=== PATIENT | male | born 2000 | race Caucasian/White ===

== ENCOUNTER 2019-11-24 03:55 | Outpatient (CLI) | payer MEDICAID, SELFPAY ==
[2019-11-24 13:10] LABS: Abs Immature Grans 0.01 k/cumm (0.0-0.09); Absolute Basophil Count 0.03 k/cumm (0.0-0.2); Absolute Eosinophil Count 0.14 k/cumm (0.0-0.7); Absolute Lymphocyte Count 1.24 k/cumm (1.2-3.4); Absolute Monocyte Count 0.35 k/cumm (0.11-0.7); Basophils % 0.5; Eosinophils % 2.5; HGB 15.8 g/dL (13.5-17.5); Immature Grans % 0.2 %; Lymphocytes % 21.9; Mean Corp. HGB Concentration 34.3 g/dL (32.0-36.0); Mean Corpuscular Volume 87.5 fL (80-95); Mean Platelet Volume 10.4 fL (8.0-11.0); Monocytes % 6.2; Neutrophils % 68.7; Platelet Count 229 x1000/uL (130-400); RBC 5.26 m/cumm (4.50-6.00); RBC Distribution Width 13.2 % (11.8-14.1); White Blood Cell Count 5.67 k/cumm (4.4-10.8)
[2019-11-24 13:32] LABS: GTT Comment See Comments
[2019-11-24 13:34] LABS: Prothrombin Time 10.4 sec (9.3-11.0)
[2019-11-24 14:06] LABS: ALT 70 U/L (16-63); AST 25 U/L (15-37); Albumin 3.9 g/dL (3.4-5.0); Alkaline Phosphatase 115 U/L (46-116); Anion Gap 10.3 mmol/L (3-11); BUN 21 mg/dL (7-18); Bilirubin, Total 0.8 mg/dL (0.2-1.0); CO2 23.7 mmol/L (21.0-32.0); CREATININE 0.91 mg/dL (0.70-1.30); Calcium 8.9 mg/dL (8.5-10.1); Chloride 106 mmol/L (98-107); Creatine Kinase 128 U/L (39-308); Glucose 128 mg/dL (74-106); Potassium 3.9 mmol/L (3.5-5.1); Sodium 140 mmol/L (136-145)
[2019-11-24 14:13] LABS: GGT 35 U/L (15-85)
[2019-11-26 11:50] LABS: Vitamin E, Serum 6.1 mg/L (5.5 - 17.0)
[2019-11-26 12:42] LABS: Tissue Transglutaminase Ab IgA <1.2 U/mL; Tissue Transglutaminase Ab IgG 2.8 U/mL
[2019-11-26 12:48] LABS: Zinc, Serum 0.77 mcg/mL (0.66-1.10)
[2019-11-26 13:52] LABS: IgE 24 IU/mL (<158)
[2019-11-29 09:08] LABS: Testosterone, Total 911 ng/dL (240-950)
== END 2019-11-24 04:15 ==
PROVIDERS: PCP Pediatrics; Visit Provider Pediatrics Pediatric Pulmonology
DX: E84.9 Cystic fibrosis, unspecified (principal)
CPT/HCPCS: 36415; 80053; 82306; 82550; 84403; 82785; 82951; 82977; 83516; 84446; 84590; 84630; 85025; 85610

== ENCOUNTER 2020-05-03 02:48 | Outpatient (CLI) | payer MEDICAID, SELFPAY ==
[2020-05-03 13:00] LABS: ALT 116 U/L (16-63); AST 38 U/L (15-37); Albumin 4.2 g/dL (3.4-5.0); Alkaline Phosphatase 141 U/L (46-116); Bilirubin, Direct 0.18 mg/dL (0.00-0.20); Total Protein 7.3 g/dL (6.4-8.2)
[2020-05-05 08:07] LABS: Zonisamide 11 mcg/mL (10-40)
== END 2020-05-03 03:08 ==
PROVIDERS: PCP Pediatrics; Visit Provider Psychiatry & Neurology Behavioral Neurology & Neuropsychiatry
DX: G40.109 Localization-related (focal) (partial) symptomatic epilepsy and epileptic syndromes with simple partial seizures, not intractable, without status epilepticus (principal); Z51.81 Encounter for therapeutic drug level monitoring; Z79.899 Other long term (current) drug therapy
CPT/HCPCS: 36415; 80076; 80203

== ENCOUNTER 2020-12-29 02:00 | Outpatient (CLI) | payer MEDICAID, SELFPAY ==
[2020-12-29 10:53] LABS: Abs Immature Grans 0.02 10^3/uL (0.0-0.06); Absolute Basophil Count 0.07 10^3/uL (0.0-0.2); Absolute Eosinophil Count 0.23 10^3/uL (0.0-0.7); Absolute Lymphocyte Count 1.35 10^3/uL (1.2-3.4); Absolute Monocyte Count 0.39 10^3/uL (0.1-0.8); Absolute Neutrophil Count 4.66 10^3/uL (1.2-6.7); Eosinophils % 3.4; HCT 43.2 % (40.0-50.0); HGB 14.4 g/dL (13.5-17.5); Immature Grans % 0.3; Lymphocytes % 20.1; MCH 29.6 pg (27.0-33.0); MCHC 33.3 % (32.0-36.0); MCV 88.7 fL (80-95); MPV 9.6 fL (8.0-11.0); Monocytes % 5.8; Neutrophils % 69.4; Nucleated RBC 0 %; Platelet Count 220 10^3/uL (130-400); RBC 4.87 10^6/uL (4.36-5.78); RDW 12.7 % (11.8-14.1); RDW-SD 41.7 fL; WBC 6.72 10^3/uL (4.4-10.8)
[2020-12-29 11:05] LABS: ALT 144 U/L (16-63); AST 89 U/L (15-37); Albumin 3.5 g/dL (3.4-5.0); Alkaline Phosphatase 450 U/L (46-116); Anion Gap 9.3 mmol/L (3-11); BUN 17 mg/dL (7-18); Bilirubin, Direct 0.1 mg/dL (0.0-0.2); Bilirubin, Total 0.4 mg/dL (0.2-1.0); CO2 23.7 mmol/L (21.0-32.0); CREATININE 0.9 mg/dL (0.70-1.30); Calcium 8.5 mg/dL (8.5-10.1); Chloride 108 mmol/L (98-107); Glucose 96 mg/dL (74-106); Glucose, 2 Hour PP 96 mg/dL; Potassium 3.7 mmol/L (3.5-5.1); Sodium 141 mmol/L (136-145); Total Protein 7.2 g/dL (6.4-8.2)
[2020-12-29 11:09] LABS: Prothrombin Time 10.1 sec (9.3-11.0)
[2020-12-29 11:20] LABS: GGT 253 U/L (15-85)
[2021-01-01 02:42] LABS: Vitamin D 25 Total 46.5 ng/mL (30-100)
[2021-01-01 09:32] LABS: IgE 21 IU/mL (<158)
[2021-01-01 15:09] LABS: Free Retinol (Vitamin A) 34.1 mcg/dL (32.5-78.0)
[2021-01-02 01:21] LABS: Vitamin E, Serum 9.7 mg/L (5.5 - 17.0)
[2021-01-02 06:45] LABS: Zonisamide 12 mcg/mL (10-40)
== END 2020-12-29 02:01 | disposition home or self-care (01) ==
LOC: LBO 02:00
PROVIDERS: PCP Pediatrics; Visit Provider Psychiatry & Neurology Behavioral Neurology & Neuropsychiatry
DX: E84.8 Cystic fibrosis with other manifestations (principal); G40.909 Epilepsy, unspecified, not intractable, without status epilepticus; G40.814 Lennox-Gastaut syndrome, intractable, without status epilepticus
CPT/HCPCS: 36415; 80053; 80076; 80203; 82306; 82785; 82947; 82977; 84446; 84590; 84630; 85025; 85610

== ENCOUNTER 2022-01-03 05:04 | Outpatient (CLI) | payer MEDICAID, SELFPAY ==
[2022-01-03 16:26] LABS: Abs Immature Grans 0.03 10^3/uL (0.0-0.06); Absolute Basophil Count 0.06 10^3/uL (0.0-0.2); Absolute Eosinophil Count 0.18 10^3/uL (0.0-0.7); Absolute Lymphocyte Count 1.19 10^3/uL (1.2-3.4); Absolute Monocyte Count 0.53 10^3/uL (0.1-0.8); Absolute Neutrophil Count 6.35 10^3/uL (1.2-6.7); Basophils % 0.7; Eosinophils % 2.2; HCT 41.9 % (40.0-50.0); HGB 14.1 g/dL (13.5-17.5); Immature Grans % 0.4; Lymphocytes % 14.3; MCH 29.7 pg (27.0-33.0); MCHC 33.7 % (32.0-36.0); MCV 88 fL (80-95); MPV 10.7 fL (8.0-11.0); Monocytes % 6.4; Platelet Count 161 10^3/uL (130-400); RBC 4.75 10^6/uL (4.36-5.78); RDW 13.8 % (11.8-14.1); WBC 8.34 10^3/uL (4.4-10.8)
[2022-01-03 16:35] LABS: INR 1.1 (0.9-1.1); Prothrombin Time 10.9 sec (9.3-11.0)
[2022-01-03 17:13] LABS: ALT 110 U/L (16-63); AST 51 U/L (15-37); Albumin 3.6 g/dL (3.4-5.0); Alkaline Phosphatase 550 U/L (46-116); Anion Gap 11.7 mmol/L (3-11); BUN 12 mg/dL (7-18); Bilirubin, Total 0.7 mg/dL (0.2-1.0); CO2 23.3 mmol/L (21.0-32.0); Calcium 8.8 mg/dL (8.5-10.1); Chloride 104 mmol/L (98-107); Estimated GFR 109.13 (mL/min/1.73m2); GGT 357 U/L (15-85); Glucose 144 mg/dL (74-106); Glucose, 2 Hour PP 144 mg/dL; Potassium 3.7 mmol/L (3.5-5.1); Sodium 139 mmol/L (136-145); Total Protein 7.3 g/dL (6.4-8.2)
[2022-01-03 17:34] LABS: Vitamin D 25 Total 57.4 ng/mL (30-100)
[2022-01-07 08:12] LABS: IgE 13 IU/mL (<158)
[2022-01-08 05:05] LABS: Zonisamide 10 mcg/mL (10-40)
[2022-01-08 09:07] LABS: Vitamin E, Serum 12.1 mg/L (5.5 - 17.0)
[2022-01-08 10:11] LABS: Free Retinol (Vitamin A) 24.9 mcg/dL (32.5-78.0)
[2022-01-08 16:37] LABS: Zinc, S 69 mcg/dL (60-106)
[2022-01-17 09:09] LABS: Misc Referral (MAYO) See Comments
== END 2022-01-03 05:05 | disposition home or self-care (01) ==
LOC: LBO 05:05
PROVIDERS: PCP Pediatrics; Visit Provider Psychiatry & Neurology Neurology
DX: E84.9 Cystic fibrosis, unspecified (principal); G40.909 Epilepsy, unspecified, not intractable, without status epilepticus
CPT/HCPCS: 36415; 80053; 80203; 82306; 84630; 82785; 82947; 82977; 84446; 84590; 85025; 85610

== ENCOUNTER 2022-02-19 16:07 | Emergency (ER) | payer MEDICAID, SELFPAY ==
[2022-02-19 16:28] VITALS: BP 115/71; PULSE 63; RESP 18; TEMP 36.8; O2SAT 97
[2022-02-19 18:15] LABS: Abs Immature Grans 0.02 10^3/uL (0.0-0.06); Absolute Basophil Count 0.05 10^3/uL (0.0-0.2); Absolute Eosinophil Count 0.24 10^3/uL (0.0-0.7); Absolute Lymphocyte Count 1.07 10^3/uL (1.2-3.4); Absolute Monocyte Count 0.52 10^3/uL (0.1-0.8); Absolute Neutrophil Count 4.89 10^3/uL (1.2-6.7); Basophils % 0.7; Eosinophils % 3.5; HCT 40.9 % (40.0-50.0); HGB 13.5 g/dL (13.5-17.5); Immature Grans % 0.3; Lymphocytes % 15.8; MCH 29.3 pg (27.0-33.0); MCV 89 fL (80-95); MPV 10.4 fL (8.0-11.0); Monocytes % 7.7; Platelet Count 127 10^3/uL (130-400); RBC 4.61 10^6/uL (4.36-5.78); RDW 12.9 % (11.8-14.1); RDW-SD 42.5 fL; WBC 6.79 10^3/uL (4.4-10.8)
[2022-02-19 18:25] LABS: ALT 119 U/L (16-63); AST 68 U/L (15-37); Albumin 3.4 g/dL (3.4-5.0); Alkaline Phosphatase 449 U/L (46-116); Anion Gap 5.7 mmol/L (3-11); BUN 21 mg/dL (7-18); Bilirubin, Total 0.7 mg/dL (0.2-1.0); CO2 28.3 mmol/L (21.0-32.0); CREATININE 0.9 mg/dL (0.70-1.30); Calcium 9.1 mg/dL (8.5-10.1); Chloride 108 mmol/L (98-107); Estimated GFR 123.84 (mL/min/1.73m2); Glucose 108 mg/dL (74-106); Potassium 3.7 mmol/L (3.5-5.1); Sodium 142 mmol/L (136-145); Total Protein 7.4 g/dL (6.4-8.2)
[2022-02-19 18:35] LABS: Bilirubin Negative (Negative); Blood Negative (Negative); Clarity Clear (Clear); Glucose Negative (Negative); Ketones Negative (Negative); Leukocyte Esterase Negative (Negative); Nitrite Negative (Negative); Specific Gravity >= 1.030 (1.005-1.025); Urobilinogen 0.2 EU/dL (Up TO 0.2); pH 5.5 (5-8)
[2022-02-19 18:48] LABS: *AMPHETAMINES SCREEN URINE Negative (Negative); *BARBITURATES SCREEN URINE Negative (Negative); *BENZODIAZEPINES SCREEN URINE Negative (Negative); Cannabinoids THC Positive (Negative); Cocaine Screen,Urine Negative (Negative); METHADONE URINE SCREEN Negative (Negative); OPIATES URINE SCREEN Negative (Negative); Tricyclic Antidepressants Negative (Negative)
[2022-02-19] MEDS: Normal Saline 1,000 ML 1000 ML IV ×2 (19:12→20:18)
--- NOTE | 2022-02-19 20:55 | ED.GENADUL_ITS ---
Discharge Plan Disposition Patient Disposition: HOME Condition: Improving Discharge Details Clinical Impression: Adverse drug reaction, Dehydration ED Provider: Austin Neville Home Meds and New Rx's Prescriptions: Continued Adult Probiotic 3 billion cell capsule 3,000 mmu cells PO DAILY levalbuterol tartrate [Xopenex HFA] 15 GM HFA aerosol inhaler 2 puff Inhalation BID multivitamin [Daily Multi-Vitamin] 1 EACH tablet 1 ea PO DAILY Label Comments: CF Specific formula Epidiolex 100 mg/mL solution 400 mg PO BID zonisamide 100 mg capsule 300 mg PO DAILY Rx Instructions: 100 mg QAM, 200 mg in PM. ursodiol 300 mg capsule 300 mg PO BID hydroxyzine HCl 50 mg tablet 50 mg PO QHS Rx Instructions: 50-100 mg at bedtime as needed for sleep esomeprazole magnesium 40 mg capsule,delayed release(DR/EC) 40 mg PO DAILY benztropine 0.5 mg tablet 0.5 mg PO BID Rx Instructions: 0.5 mg morning and evening Pancreaze 21,000-54,700- 83,900 unit capsule,delayed release(DR/EC) 5 cap PO TID Rx Instructions: administer 5 caps with meals and/or 3 caps with snacks trazodone 50 mg tablet 50 mg PO QHS cholecalciferol (vitamin D3) 125 mcg (5,000 unit) capsule 125 mcg PO DAILY Fish Oil 900 mg (320 mg- 580mg)-1,360 mg capsule 2 cap PO BID acetylcysteine [NAC] 600 mg capsule 600 mg PO BID iodine strong (Lugols) 5 % solution 2 drp PO .COMPLEX Rx Instructions: 2 drps PO; 2 drops in some water to help thyroid, CF melatonin 5 mg tablet,chewable 10 mg PO HS PRN Rx Instructions: 2-4 gummies HS Pulmozyme 1 mg/mL solution 2.5 mg inhalation DAILY hawthorn extract 150 mg capsule 300 mg PO BID Nasal Mist 0.9 % aerosol,spray 2 spray intranasal BID Rx Instructions: Xlear nasal spray saline with xylitol 2 sprays BID aripiprazole [Abilify] 5 mg tablet 5 mg PO DAILY Qty: 90 1RF Rx Instructions: Take 5 mg tab PO daily naltrexone 50 mg Tablet 4.5 mg PO HS Pulmozyme 1 mg/mL Solution 2.5 mg INHALATION DAILY tobramycin with nebulizer 300 mg/5 mL Solution For Nebulization 300 mg INHALATION BID Rx Instructions: separate doses by at least 6 hours vitamin D3-vitamin K2 (MK4) 1,000-100 unit-mcg Tablet 5 tab PO DAILY magnesium glycinate 100 mg magnesium Capsule 200 mg PO BID Discharge Instructions Instructions: Dehydration (ED) Additional Instructions: I feel that there is a higher chance that you are reaction is due to your medication so please consult with your prescribing provider to further discuss your medications and possible changes that may be needed to minimize adverse effects. Otherwise since you significantly improved with fluids please stay well-hydrated and feel free to return the emergency department as needed for reassessment otherwise follow-up with primary care provider as needed. Referrals: Primary Care Provider [Outside] (For discussion of medication changes and reassessment as needed) Discharge Data Discharge Date/Time-TO BE ENTERED AT DEPARTURE: 02/19/22 21:13 Medical Decision Making Patient presenting to the emergency department with nursing staff for behavioral changes. Patient had increase of hydroxyzine 2 weeks ago and since then patient has seemed more distant, more aggressive outbursts, and slight change in diet but still eating and drinking. He also has seemed to have more frequent seizures but none recently. Physical exam is unremarkable but difficult to fully obtain review of systems given patient's significant history of alpha 1 antitrypsin deficiency, learning disability with difficulty communicating. We will plan on checking patient's labs and giving IV fluids Reviewed patient's labs and CBC is otherwise nondiagnostic, CMP does show slightly elevated chloride and BUN. LFTs are elevated but this is at baseline for patient's previous labs. Urinalysis does show high specific gravity but again nondiagnostic. UDS does show positive THC screening but patient is on cannabinoid medication. Mother now present and does state previous reaction years ago when they had increased his hydroxyzine. I do suspect this is the cause to patient's behavior and otherwise reviewed labs with mother who is very well informed of patient's history and she states that patient has ongoing elevated LFTs. Patient is more responsive after 1 L fluids and will give patient additional liter and plan on discharge. After discussion of diagnosis and plan of care mother has no further needs, questions, or concerns and states clear understanding to return to the emergency department for any worsening symptoms. This documentation was generated using Etixation system, please disregard any oddities of phrase or misspellings. Medical Records Medical records reviewed: Yes I reviewed the patient's medical records. Lab Data Lab results reviewed: Yes I reviewed the patient's lab results. HPI General Mode of arrival: EMS . Date/Time Provider Initiated Documentation: 02/19/22 16:29 . Limitations to Documentation: language barrier and altered mental status . Information obtained by: RN/MD, RN notes reviewed and old records reviewed . History of Present Illness 21 year old M presents to the emergency department with the chief complaint of Change in behavior, described as similar to prior episodes, Quality is described as constant, Patient started experiencing this week(s) (2) and it has been intermittent. No relieving factors improve symptom(s), Medication worsens symptoms . Patient notes no other symptoms.. Patient did receive the following treatments prior to arrival, none Related Data Home Medications Medication Instructions Recorded Confirmed levalbuterol tartrate 45 2 puff inhalation BID 12/02/12 02/19/22 mcg/actuation aerosol inhaler (Xopenex HFA) multivitamin (Daily Multi-Vitamin 1 ea PO DAILY 01/05/16 08/07/21 tablet) lactobacillus combination no.8 3 3,000 mmu cells PO DAILY 12/02/18 08/07/21 billion cell capsule (Adult Probiotic) acetylcysteine 600 mg capsule (NAC) 600 mg PO BID 08/02/21 02/19/22 benztropine 0.5 mg tablet 0.5 mg PO BID Swallowing 08/02/21 02/19/22 cannabidiol 100 mg/mL oral 400 mg PO BID 08/02/21 02/19/22 solution (Epidiolex) cholecalciferol (vitamin D3) 125 125 mcg PO DAILY 08/02/21 mcg (5,000 unit) capsule dornase kathryn 1 mg/mL solution for 2.5 mg inhalation DAILY 08/02/21 inhalation (Pulmozyme) esomeprazole magnesium 40 mg 40 mg PO DAILY 08/02/21 capsule,delayed release hawthorn extract 150 mg capsule 300 mg PO BID 08/02/21 02/19/22 hydroxyzine HCl 50 mg tablet 50 mg PO QHS 08/02/21 02/19/22 iodine strong (Lugols) 5 % oral 2 drp PO .COMPLEX 08/02/21 02/19/22 solution lipase 21,000-protease 5 cap PO TID 08/02/21 02/19/22 54,700-amylase 83,900 unit capsule,delayed rel (Pancreaze) melatonin 5 mg chewable tablet 10 mg PO HS PRN 08/02/21 02/19/22 omega-3 900 mg-dha 320 mg-epa 580 2 cap PO BID 08/02/21 02/19/22 mg-fish oil 1,360 mg capsule (Fish Oil) sodium chloride 0.9 % nasal spray 2 spray intranasal BID 08/02/21 02/19/22 aerosol (Nasal Mist) trazodone 50 mg tablet 50 mg PO QHS 08/02/21 02/19/22 ursodiol 300 mg capsule 300 mg PO BID 08/02/21 02/19/22 zonisamide 100 mg capsule 300 mg PO DAILY 08/02/21 02/19/22 aripiprazole 5 mg tablet (Abilify) 5 mg PO DAILY #90 tabs 12/13/21 cholecalciferol (vit D3) 1,000 5 tab PO DAILY 02/19/22 02/19/22 unit-vitamin K2 (MK4) 100 mcg tablet dornase kathryn 1 mg/mL solution for 2.5 mg inhalation DAILY 02/19/22 02/19/22 inhalation (Pulmozyme) magnesium glycinate 200 mg PO BID 02/19/22 02/19/22 naltrexone 50 mg tablet 4.5 mg PO HS 02/19/22 02/19/22 tobramycin with nebulizer 300 mg/5 300 mg inhalation BID 02/19/22 02/19/22 mL solution for nebulization Previous Rx's Medication Instructions Recorded aripiprazole 5 mg tablet (Abilify) 5 mg PO DAILY #90 tabs 12/13/21 Allergies Allergy/AdvReac Type Severity Reaction Status Date / Time amoxicillin Allergy Intermediate RASH Verified 02/19/22 16:47 levetiracetam [From Keppra] Allergy Unknown aggression Verified 02/19/22 16:47 elexacaftor [From Trikafta] AdvReac Severe Verified 02/19/22 16:47 ivacaftor [From Symdeko] AdvReac Severe Verified 02/19/22 16:47 tezacaftor [From Symdeko] AdvReac Severe Verified 02/19/22 16:47 Benzodiazepines AdvReac Intermediate Verified 02/19/22 16:47 latex AdvReac Unknown RASH Verified 02/19/22 16:47 montelukast [From Singulair] AdvReac Behavioral Verified 02/19/22 16:47 side effects General Stated Complaint: AMS/LOC MARINA: 3 Review of Systems Constitutional Constitutional: Denies chills and Denies fever(s) ENT Ears, Nose, Mouth, and Throat: Denies nasal congestion and Denies sore throat Cardiovascular Cardiovascular: Denies chest pain Respiratory Respiratory: Reports system reviewed and no additional complaints, except as documented Gastrointestinal Gastrointestinal: Denies abdominal pain, Denies diarrhea, Denies nausea and Denies vomiting Genitourinary Genitourinary: Denies oliguria Integumentary/Breasts Skin/Breast: Denies rash Neurologic Neurologic: Reports as per HPI and Reports behavioral changes Psychiatric Psychiatric: Reports behavioral changes, Reports change in appetite and Reports irritability PFSH All Active Problems (Updated 02/19/22 @ 20:56 by Austin Neville NP) Adverse drug reaction (Acute) Dehydration (Acute) Well adult health check (Acute) Bipolar disorder, unspecified (Acute) Psychiatry evaluation at [facility] -01/17/2021 Seizure disorder (Chronic) Oilnu-[id number]-rbffuanhxxq deficiency (Chronic) Medical History Zasqn-1-[id number] deficiency Learning problem Surgical History splinter removal Family History Mother Hyperlipidemia Sister Asthma Grandparent Essential hypertension Heart disease Hyperlipidemia Social History (Updated 08/01/21 @ 11:02 by Matilda Carreno RN) Smoking/Tobacco Use Status: Never Smoking risk assessment performed?: Yes Alcohol Intake: never Drug use: Never Substance use type: does not use Household members: family Pets and animals: Yes (1 dog at mom's, 1 dog at dad's and outdoor cats) Pets and animals: cat(s) and dog(s) Do you feel safe at home: Yes Do you feel safe in your relationship?: Yes Exam Const General: cooperative, no acute distress and not ill appearing Orientation: alert and awake HENCA Head: normal to inspection, normocephalic and atraumatic Ears: hearing grossly normal bilaterally and external ears normal General nose exam: external nose normal Face and sinus: normal facial exam Mouth: moist mucous membranes Resp Effort & Inspection: normal respiratory effort, able to speak in complete sentences and no respiratory distress Auscultation: clear to auscultation bilaterally Cardio Rate: regular rate Rhythm: regular rhythm Heart Sounds: S1 normal and S2 normal Skin General skin exam: no rashes or lesions noted Neuro General: patient alert, patient awake, moves all extremities and no focal motor deficits Course Vital Signs Vital signs: Vital Signs Temperature 36.8 C 02/19/22 16:28 Pulse 63 02/19/22 16:28 Respiratory Rate 18 02/19/22 16:28 Blood Pressure 115/71 02/19/22 16:28 Pulse Oximetry 97 02/19/22 16:28 Temperature 36.8 C 02/19/22 16:28 Temperature Source Oral 02/19/22 16:28 Pulse 63 02/19/22 16:28 Respiratory Rate 18 02/19/22 16:28 Respiratory Effort Non-Labored 02/19/22 17:47 Respiratory Depth Normal 02/19/22 17:47 Respiratory Pattern Normal 02/19/22 17:47 Blood Pressure 115/71 02/19/22 16:28 Blood Pressure Position Sitting 02/19/22 16:28 Pulse Oximetry 97 02/19/22 16:28 Oxygen Delivery Method Room Air 02/19/22 16:28 Oxygen Flow Rate 0 02/19/22 16:28 Lab/Test Results Lab/Test Results: Laboratory Tests Range/Units 02/19/22 02/19/22 02/19/22 18:02 18:02 18:27 WBC (4.4-10.8) 10^3/uL 6.79 RBC (4.36-5.78) 10^6/uL 4.61 Hgb (13.5-17.5) g/dL 13.5 Hct (40.0-50.0) % 40.9 MCV (80-95) fL 89 MCH (27.0-33.0) pg 29.3 MCHC (32.0-36.0) % 33.0 RDW (11.8-14.1) % 12.9 Plt Count (130-400) 10^3/uL 127 L MPV (8.0-11.0) fL 10.4 Immature Gran % 0.3 Neutrophils % 72.0 Lymphocytes % 15.8 Monocytes % 7.7 Eosinophils % 3.5 Basophils % 0.7 Nucleated RBC % (0.0-0.3) % 0.0 Absolute Neutrophils (1.2-6.7) 10^3/uL 4.89 Absolute Lymphocytes (1.2-3.4) 10^3/uL 1.07 L Absolute Monocytes (0.1-0.8) 10^3/uL 0.52 Absolute Eosinophils (0.0-0.7) 10^3/uL 0.24 Absolute Basophils (0.0-0.2) 10^3/uL 0.05 Sodium (136-145) mmol/L 142 Potassium (3.5-5.1) mmol/L 3.7 Chloride (98-107) mmol/L 108 H Carbon Dioxide (21.0-32.0) mmol/L 28.3 Anion Gap (3-11) mmol/L 5.7 BUN (7-18) mg/dL 21 H Creatinine (0.70-1.30) mg/dL 0.9 Est GFR (CKD-EPI 2020) (mL/min/1.73m2) 123.84 Glucose (74-106) mg/dL 108 H Calcium (8.5-10.1) mg/dL 9.1 Magnesium (1.8-2.4) mg/dL 2.0 Total Bilirubin (0.2-1.0) mg/dL 0.7 AST (15-37) U/L 68 H ALT (16-63) U/L 119 H Alkaline Phosphatase (46-116) U/L 449 H Total Protein (6.4-8.2) g/dL 7.4 Albumin (3.4-5.0) g/dL 3.4 Urine Color (Yellow) Urine Clarity (Clear) Urine pH (5-8) Ur Specific [place] (1.005-1.025) Urine Protein (Negative) mg/dL Urine Ketones (Negative) mg/dL Urine Blood (Negative) Urine Nitrite (Negative) Urine Bilirubin (Negative) Urine Urobilinogen (Up TO 0.2) EU/dL Ur Leukocyte Esterase (Negative) Urine Glucose (Negative) mg/dL Urine Opiates Screen (Negative) Negative Urine Methadone Screen (Negative) Negative Ur Barbiturates Screen (Negative) Negative Ur Tricyclics Screen (Negative) Negative Ur Amphetamines Screen (Negative) Negative U Benzodiazepines Scrn (Negative) Negative Urine Cocaine Screen (Negative) Negative Ur THC Screen (Negative) Positive A Range/Units 02/19/22 18:27 WBC (4.4-10.8) 10^3/uL RBC (4.36-5.78) 10^6/uL Hgb (13.5-17.5) g/dL Hct (40.0-50.0) % MCV (80-95) fL MCH (27.0-33.0) pg MCHC (32.0-36.0) % RDW (11.8-14.1) % Plt Count (130-400) 10^3/uL MPV (8.0-11.0) fL Immature Gran % Neutrophils % Lymphocytes % Monocytes % Eosinophils % Basophils % Nucleated RBC % (0.0-0.3) % Absolute Neutrophils (1.2-6.7) 10^3/uL Absolute Lymphocytes (1.2-3.4) 10^3/uL Absolute Monocytes (0.1-0.8) 10^3/uL Absolute Eosinophils (0.0-0.7) 10^3/uL Absolute Basophils (0.0-0.2) 10^3/uL Sodium (136-145) mmol/L Potassium (3.5-5.1) mmol/L Chloride (98-107) mmol/L Carbon Dioxide (21.0-32.0) mmol/L Anion Gap (3-11) mmol/L BUN (7-18) mg/dL Creatinine (0.70-1.30) mg/dL Est GFR (CKD-EPI 2020) (mL/min/1.73m2) Glucose (74-106) mg/dL Calcium (8.5-10.1) mg/dL Magnesium (1.8-2.4) mg/dL Total Bilirubin (0.2-1.0) mg/dL AST (15-37) U/L ALT (16-63) U/L Alkaline Phosphatase (46-116) U/L Total Protein (6.4-8.2) g/dL Albumin (3.4-5.0) g/dL Urine Color (Yellow) Yellow Urine Clarity (Clear) Clear Urine pH (5-8) 5.5 Ur Specific [place] (1.005-1.025) >= 1.030 H Urine Protein (Negative) mg/dL Negative Urine Ketones (Negative) mg/dL Negative Urine Blood (Negative) Negative Urine Nitrite (Negative) Negative Urine Bilirubin (Negative) Negative Urine Urobilinogen (Up TO 0.2) EU/dL 0.2 Ur Leukocyte Esterase (Negative) Negative Urine Glucose (Negative) mg/dL Negative Urine Opiates Screen (Negative) Urine Methadone Screen (Negative) Ur Barbiturates Screen (Negative) Ur Tricyclics Screen (Negative) Ur Amphetamines Screen (Negative) U Benzodiazepines Scrn (Negative) Urine Cocaine Screen (Negative) Ur THC Screen (Negative)
[2022-02-19 21:01] VITALS: BP 114/51; PULSE 65; RESP 15; TEMP 36.8; O2SAT 99
== END 2022-02-19 21:13 | disposition home or self-care (01) ==
PROVIDERS: Emergency Provider Nurse Practitioner Family
DX: T50.905A Adverse effect of unspecified drugs, medicaments and biological substances, initial encounter (principal); E86.0 Dehydration
CPT/HCPCS: 80053; 80307; 96360; 96361; 99284; 81003; 83735; 85025; 99281

== ENCOUNTER 2022-06-01 17:55 | Emergency (ER) | payer MEDICAID, SELFPAY ==
[2022-06-01 17:48] VITALS: BP 140/78; PULSE 103; RESP 18; TEMP 36.9; O2SAT 98
--- NOTE | 2022-06-01 18:28 | ED.GENADUL_ITS ---
Discharge Plan Disposition Patient Disposition: Home Condition: Good Discharge Details Clinical Impression: Breakthrough seizure ED Provider: Festus Mota Home Meds and New Rx's Prescriptions: No Action Adult Probiotic 3 billion cell capsule 3,000 mmu cells PO DAILY levalbuterol tartrate [Xopenex HFA] 15 GM HFA aerosol inhaler 2 puff Inhalation BID multivitamin [Daily Multi-Vitamin] 1 EACH tablet 1 ea PO DAILY Label Comments: CF Specific formula Epidiolex 100 mg/mL solution 400 mg PO BID zonisamide 100 mg capsule 300 mg PO DAILY Rx Instructions: 100 mg QAM, 200 mg in PM. ursodiol 300 mg capsule 300 mg PO BID hydroxyzine HCl 50 mg tablet 50 mg PO QHS Rx Instructions: 50-100 mg at bedtime as needed for sleep esomeprazole magnesium 40 mg capsule,delayed release(DR/EC) 40 mg PO DAILY benztropine 0.5 mg tablet 0.5 mg PO BID Rx Instructions: 0.5 mg morning and evening Pancreaze 21,000-54,700- 83,900 unit capsule,delayed release(DR/EC) 5 cap PO TID Rx Instructions: administer 5 caps with meals and/or 3 caps with snacks trazodone 50 mg tablet 50 mg PO QHS cholecalciferol (vitamin D3) 125 mcg (5,000 unit) capsule 125 mcg PO DAILY Fish Oil 900 mg (320 mg- 580mg)-1,360 mg capsule 2 cap PO BID acetylcysteine [NAC] 600 mg capsule 600 mg PO BID iodine strong (Lugols) 5 % solution 2 drp PO .COMPLEX Rx Instructions: 2 drps PO; 2 drops in some water to help thyroid, CF melatonin 5 mg tablet,chewable 10 mg PO HS PRN Rx Instructions: 2-4 gummies HS Pulmozyme 1 mg/mL solution 2.5 mg inhalation DAILY hawthorn extract 150 mg capsule 300 mg PO BID Nasal Mist 0.9 % aerosol,spray 2 spray intranasal BID Rx Instructions: Xlear nasal spray saline with xylitol 2 sprays BID aripiprazole [Abilify] 5 mg tablet 5 mg PO DAILY Qty: 90 1RF Rx Instructions: Take 5 mg tab PO daily naltrexone 50 mg Tablet 4.5 mg PO HS Pulmozyme 1 mg/mL Solution 2.5 mg INHALATION DAILY tobramycin with nebulizer 300 mg/5 mL Solution For Nebulization 300 mg INHALATION BID Rx Instructions: separate doses by at least 6 hours vitamin D3-vitamin K2 (MK4) 1,000-100 unit-mcg Tablet 5 tab PO DAILY magnesium glycinate 100 mg magnesium Capsule 200 mg PO BID Discharge Instructions Instructions: Recurrent Seizures in Adults (ED) Additional Instructions: At this time your seizure is likely secondary to a slightly insufficient dose of the seizure medication. Please increase your Vimpat to 150 mg twice daily. We discussed your case with the [facility] neurologist, they would like to follow- up with you closely. Please reach out to them Friday morning. If you notice any worsening of your symptoms, or any new symptoms such as vomiting, diarrhea, fever, chills, shortness of breath, chest pain, numbness, weakness, or fainting , please return immediately to the emergency department for reevaluation. Please follow up with your primary care provider as soon as possible for reassessment and reevaluation. As always, it was a pleasure participating in your medical care today. Medical Decision Making <Shilo Alexander MD - Last Filed: 06/01/22 19:36> 21-year-old male presents from home with his caregivers. They note 3 weeks Prabhu had a seizure on Friday. Today he had a witnessed generalized seizure with movement and tongue biting that lasted approximately 1 minute. Per his orders he was given 5 mg of midazolam after the seizure and then was transported to the ER. Approximately 2 to 3 weeks ago the patient was changed from his medication Zonegran to Vimpat 100mg BID. On arrival the patient has stable vital signs, he is interactive with the staff members. He does appear somewhat slightly postictal. At baseline he has poor verbal abilities. Review of systems will reveal increased free water intake. Differential diagnosis includes breakthrough seizure, hyponatremia, electrolyte abnormalities. He has cystic fibrosis and a chronic cough. We will screen him for influenza and COVID as well. Laboratories note a normal sodium of 140. The remainder of the electrolytes are reassuring. He has had mild elevations of transaminases in the past and tonight AST is 41, ALT 82, total bili 0.7. CBC reveals white count 9, hematocrit 39, platelets 123. Patient continues to improve. <Festus Mota DO - Last Filed: 06/01/22 20:45> 21-year-old male presents from home with his caregivers. They note 3 weeks Prabhu had a seizure on Friday. Today he had a witnessed generalized seizure with movement and tongue biting that lasted approximately 1 minute. Per his orders he was given 5 mg of midazolam after the seizure and then was transported to the ER. Approximately 2 to 3 weeks ago the patient was changed from his medication Zonegran to Vimpat 100mg BID. On arrival the patient has stable vital signs, he is interactive with the staff members. He does appear somewhat slightly postictal. At baseline he has poor verbal abilities. Review of systems will reveal increased free water intake. Differential diagnosis includes breakthrough seizure, hyponatremia, electrolyte abnormalities. He has cystic fibrosis and a chronic cough. We will screen him for influenza and COVID as well. Laboratories note a normal sodium of 140. The remainder of the electrolytes are reassuring. He has had mild elevations of transaminases in the past and tonight AST is 41, ALT 82, total bili 0.7. CBC reveals white count 9, hematocrit 39, platelets 123. Patient continues to improve. Dr. Mota's documentation: 8:40 PM Patient was signed out to me by Dr. Shilo Alexander. Please refer to his HPI, physical exam, assessment and plan. Patient was noted to appear notably well and has returned to his normal baseline status. Plan at time of signout was awaiting callback from [facility] neurology for medication recommendations. Discussed the case with Dana, Dr. Combs of neurology, and at this time the recommendation is to increase the bit Vimpat to 150 mg twice daily dosing. Patient otherwise looks well and has returned to baseline. Work-up as performed by Dr. Alexander is otherwise stable. No clear evidence of infection or other significant acute process. Patient will be discharged home. Discussed red flags for which to return. Discussed case with caregiver/family at bedside. I have extensively reviewed the treatment plan and discharge instructions with the patient and their family. I have addressed all patient concerns at this time. The patient and family was made aware of what symptoms to monitor for that would warrant a return to the emergency department. Discussed the plan with the patient and family, they demonstrate verbal understanding and agreement with our assessment and plan at this time. The documentation in this chart was dictated using [employer] dictation software. Please excuse any dictation errors. HPI <Shilo Alexander MD - Last Filed: 06/01/22 19:36> General Mode of arrival: EMS . Date/Time Provider Initiated Documentation: 06/01/22 18:59 . Limitations to Documentation: other (Limited verbal) . History of Present Illness 21 year old M presents to the emergency department with the chief complaint of Seizure, described as similar to prior episodes, Patient reports no radiation. Patient started experiencing this hour(s) and it has been now resolved. No relieving factors improve symptom(s), No exacerbating factors reported . Patient notes confusion and seizure. Patient did receive the following treatments prior to arrival, other (Midazolam 5 mg) Related Data Home Medications Medication Instructions Recorded Confirmed levalbuterol tartrate 45 2 puff inhalation BID 12/02/12 02/19/22 mcg/actuation aerosol inhaler (Xopenex HFA) multivitamin (Daily Multi-Vitamin 1 ea PO DAILY 01/05/16 08/07/21 tablet) lactobacillus combination no.8 3 3,000 mmu cells PO DAILY 12/02/18 08/07/21 billion cell capsule (Adult Probiotic) acetylcysteine 600 mg capsule (NAC) 600 mg PO BID 08/02/21 02/19/22 benztropine 0.5 mg tablet 0.5 mg PO BID Swallowing 08/02/21 02/19/22 cannabidiol 100 mg/mL oral 400 mg PO BID 08/02/21 02/19/22 solution (Epidiolex) cholecalciferol (vitamin D3) 125 125 mcg PO DAILY 08/02/21 mcg (5,000 unit) capsule dornase kathryn 1 mg/mL solution for 2.5 mg inhalation DAILY 08/02/21 inhalation (Pulmozyme) esomeprazole magnesium 40 mg 40 mg PO DAILY 08/02/21 capsule,delayed release hawthorn extract 150 mg capsule 300 mg PO BID 08/02/21 02/19/22 hydroxyzine HCl 50 mg tablet 50 mg PO QHS 08/02/21 02/19/22 iodine strong (Lugols) 5 % oral 2 drp PO .COMPLEX 08/02/21 02/19/22 solution lipase 21,000-protease 5 cap PO TID 08/02/21 02/19/22 54,700-amylase 83,900 unit capsule,delayed rel (Pancreaze) melatonin 5 mg chewable tablet 10 mg PO HS PRN 08/02/21 02/19/22 omega-3 900 mg-dha 320 mg-epa 580 2 cap PO BID 08/02/21 02/19/22 mg-fish oil 1,360 mg capsule (Fish Oil) sodium chloride 0.9 % nasal spray 2 spray intranasal BID 08/02/21 02/19/22 aerosol (Nasal Mist) trazodone 50 mg tablet 50 mg PO QHS 08/02/21 02/19/22 ursodiol 300 mg capsule 300 mg PO BID 08/02/21 02/19/22 zonisamide 100 mg capsule 300 mg PO DAILY 08/02/21 02/19/22 aripiprazole 5 mg tablet (Abilify) 5 mg PO DAILY #90 tabs 12/13/21 cholecalciferol (vit D3) 1,000 5 tab PO DAILY 02/19/22 02/19/22 unit-vitamin K2 (MK4) 100 mcg tablet dornase kathryn 1 mg/mL solution for 2.5 mg inhalation DAILY 02/19/22 02/19/22 inhalation (Pulmozyme) magnesium glycinate 200 mg PO BID 02/19/22 02/19/22 naltrexone 50 mg tablet 4.5 mg PO HS 02/19/22 02/19/22 tobramycin with nebulizer 300 mg/5 300 mg inhalation BID 02/19/22 02/19/22 mL solution for nebulization Previous Rx's Medication Instructions Recorded aripiprazole 5 mg tablet (Abilify) 5 mg PO DAILY #90 tabs 12/13/21 Allergies Allergy/AdvReac Type Severity Reaction Status Date / Time amoxicillin Allergy Intermediate RASH Verified 06/01/22 17:55 levetiracetam [From Keppra] Allergy Unknown aggression Verified 06/01/22 17:55 elexacaftor [From Trikafta] AdvReac Severe Verified 06/01/22 17:55 ivacaftor [From Symdeko] AdvReac Severe Verified 06/01/22 17:55 tezacaftor [From Symdeko] AdvReac Severe Verified 06/01/22 17:55 Benzodiazepines AdvReac Intermediate Verified 06/01/22 17:55 latex AdvReac Unknown RASH Verified 06/01/22 17:55 montelukast [From Singulair] AdvReac Behavioral Verified 06/01/22 17:55 side effects General Stated Complaint: Seizure MARINA: 3 Review of Systems <Shilo Alexander MD - Last Filed: 06/01/22 19:36> Narrative: Has a chronic cough due to to cystic fibrosis. Has had some increasing thirst and drinking of water. Has had once weekly seizure for the past 3 weeks. Some increased aggressive behavior. 7 systems were reviewed and otherwise negative. Recently changed his epileptic medication. PFSH <Shilo Alexander MD - Last Filed: 06/01/22 19:36> All Active Problems (Updated 06/01/22 @ 20:42 by Festus Mota DO) Breakthrough seizure (Acute) Well adult health check (Acute) Bipolar disorder, unspecified (Acute) Psychiatry evaluation at [facility] -01/17/2021 Seizure disorder (Chronic) [id number] deficiency (Chronic) Medical History [id number] deficiency Learning problem Surgical History splinter removal Family History Mother Hyperlipidemia Sister Asthma Grandparent Essential hypertension Heart disease Hyperlipidemia Social History Smoking/Tobacco Use Status: Never Smoking risk assessment performed?: Yes Alcohol Intake: never Drug use: Never Substance use type: does not use Household members: family Pets and animals: Yes (1 dog at mom's, 1 dog at dad's and outdoor cats) Pets and animals: cat(s) and dog(s) Do you feel safe at home: Yes Do you feel safe in your relationship?: Yes Exam <Shilo Alexander MD - Last Filed: 06/01/22 19:36> Narrative Exam Narrative: GEN: awake, interactive. HEAD: Normocephalic, atraumatic ENT: Mucous membranes moist, oropharynx notes a abrasion to the right lower lip, External ear exam unremarkable EYES: PERRL, EOMI NECK: Full ROM, no VERITO, no menigismus CHEST/RESP: Nontender, predominantly clear with few scattered basilar rhonchi CARDIOVASCULAR: RRR, no murmur, rub angelito. 2+ Rad pulse bilateral ABDOMEN: Soft, nontender, no mass. +Bowel sounds EXT: Full ROM, no edema, no rash Neuro: Alert and interactive. Psych: Unable to assess Course <Shilo Alexander MD - Last Filed: 06/01/22 19:36> Vital Signs Vital signs: Vital Signs Temperature 36.9 C 06/01/22 17:48 Pulse 103 H 06/01/22 17:48 Respiratory Rate 18 06/01/22 17:48 Blood Pressure 140/78 06/01/22 17:48 Pulse Oximetry 98 06/01/22 17:48 Temperature 36.9 C 06/01/22 17:48 Temperature Source Oral 06/01/22 17:48 Pulse 103 H 06/01/22 17:48 Respiratory Rate 18 06/01/22 17:48 Respiratory Effort 06/01/22 18:17 Respiratory Depth Normal 06/01/22 18:17 Respiratory Pattern Normal 06/01/22 18:17 Blood Pressure 140/78 06/01/22 17:48 Blood Pressure Position Sitting 06/01/22 17:48 Pulse Oximetry 98 06/01/22 17:48 Oxygen Delivery Method Room Air 06/01/22 17:48 Oxygen Flow Rate 0 06/01/22 17:48 Sign Out <Shilo Alexander MD - Last Filed: 06/01/22 19:36> Sign Out Data: Sign Out Comment: Breakthrough seizure. W/ Caregivers. Discuss meds with Neurology. Last updated by Shilo Alexander MD at 06/01/22 20:07
[2022-06-01 19:11] LABS: Bilirubin Negative (Negative); Blood Negative (Negative); Clarity Clear (Clear); Glucose Negative (Negative); Ketones Negative (Negative); Leukocyte Esterase Negative (Negative); Nitrite Negative (Negative); Specific Gravity >= 1.030 (1.005-1.025); Urobilinogen 0.2 EU/dL (Up TO 0.2); pH 5.5 (5-8)
[2022-06-01 19:17] LABS: Abs Immature Grans 0.04 10^3/uL (0.0-0.06); Absolute Basophil Count 0.06 10^3/uL (0.0-0.2); Absolute Eosinophil Count 0.18 10^3/uL (0.0-0.7); Absolute Lymphocyte Count 0.83 10^3/uL (1.2-3.4); Absolute Monocyte Count 0.65 10^3/uL (0.1-0.8); Absolute Neutrophil Count 7.96 10^3/uL (1.2-6.7); Basophils % 0.6; Eosinophils % 1.9; HCT 39.9 % (40.0-50.0); HGB 13.1 g/dL (13.5-17.5); Immature Grans % 0.4; Lymphocytes % 8.5; MCH 29.3 pg (27.0-33.0); MCHC 32.8 % (32.0-36.0); MCV 89 fL (80-95); Monocytes % 6.7; Neutrophils % 81.9; Platelet Count 123 10^3/uL (130-400); RBC 4.47 10^6/uL (4.36-5.78); RDW 13.6 % (11.8-14.1); RDW-SD 44.5 fL; WBC 9.72 10^3/uL (4.4-10.8)
[2022-06-01 19:26] LABS: Bacteria Rare HPF (Negative); Casts Negative LPF (Negative); Crystals Negative HPF (Negative); Epithelial Cells Rare HPF (Negative); Mucus Negative (Negative); RBC Negative HPF (0-2); WBC Negative HPF (0-5)
[2022-06-01 19:27] LABS: C & S Indicated? No
[2022-06-01 19:34] LABS: ALT 82 U/L (16-63); AST 41 U/L (15-37); Albumin 3.2 g/dL (3.4-5.0); Alkaline Phosphatase 481 U/L (46-116); Anion Gap 8.1 mmol/L (3-11); BUN 14 mg/dL (7-18); Bilirubin, Total 0.7 mg/dL (0.2-1.0); CO2 26.9 mmol/L (21.0-32.0); CREATININE 0.9 mg/dL (0.70-1.30); Chloride 105 mmol/L (98-107); Estimated GFR 123.84 (mL/min/1.73m2); Glucose 161 mg/dL (74-106); Potassium 3.8 mmol/L (3.5-5.1); Sodium 140 mmol/L (136-145); Total Protein 6.9 g/dL (6.4-8.2)
== END 2022-06-01 20:48 | disposition home or self-care (01) ==
LOC: ER 21:15
PROVIDERS: Emergency Medicine; Emergency Provider Student in an Organized Health Care Education/Training Program
DX: G40.909 Epilepsy, unspecified, not intractable, without status epilepticus (principal); E84.9 Cystic fibrosis, unspecified; R05.3 Chronic cough; S00.511A Abrasion of lip, initial encounter; R74.01 Elevation of levels of liver transaminase levels; X58.XXXA Exposure to other specified factors, initial encounter
CPT/HCPCS: 80053; 99282; 81003; 81015; 85025; 99285

== ENCOUNTER 2022-07-18 02:08 | Outpatient (CLI) | payer MEDICAID, SELFPAY ==
[2022-07-18 10:17] LABS: ALT 110 U/L (16-63); AST 72 U/L (15-37); Albumin 3.6 g/dL (3.4-5.0); Alkaline Phosphatase 427 U/L (46-116); Bilirubin, Direct 0.4 mg/dL (0.0-0.2); Bilirubin, Total 0.9 mg/dL (0.2-1.0); Total Protein 7.7 g/dL (6.4-8.2)
[2022-07-22 11:41] LABS: Lacosamide 7.9 mcg/mL (1.0 - 10.0)
== END 2022-07-18 02:09 | disposition home or self-care (01) ==
LOC: LBO 02:08
PROVIDERS: Visit Provider Psychiatry & Neurology Behavioral Neurology & Neuropsychiatry
DX: G40.219 Localization-related (focal) (partial) symptomatic epilepsy and epileptic syndromes with complex partial seizures, intractable, without status epilepticus (principal); Z79.899 Other long term (current) drug therapy
CPT/HCPCS: 36415; 80076; 80235

== ENCOUNTER 2022-08-31 09:35 | Emergency (ER) | payer MEDICAID, SELFPAY ==
[2022-08-31 09:38] VITALS: BP 127/73; PULSE 65; RESP 14; TEMP 36.6; O2SAT 98
--- NOTE | 2022-08-31 09:45 | DI.CT_ITS ---
Exam(s) CT HEAD WO EXAM: CT HEAD WO CLINICAL HISTORY: head trauma. TECHNIQUE: Imaging Protocol: Axial computed tomography images with coronal and sagittal reformatted images were created and reviewed COMPARISON: No exams were available for comparison FINDINGS: Ventricles and Extra axial spaces: Normal in size and morphology for the patient's age. Hemorrhage: None. Cerebral parenchyma: Normal. Midline shift: None. Brainstem/Cerebellum: Normal. Calvarium: Normal. Visualized Paranasal sinuses/Mastoids: There is mucosal thickening in the maxillary sinuses, ethmoid air cells and frontal sinuses bilaterally. There is mild mucosal thickening in the right sphenoid si nus. Mastoid air cells are clear. Soft Tissues: There is soft tissue swelling in the midline of the forehead. IMPRESSION: 1. No acute intracranial process. 2. Small frontal scalp hematoma. RADIATION DOSE DELIVERED: 778.91mGy.cm Total DLP DATA REPOSITORY: All CT scans at this facility are submitted to the National Radiology Data Registry (NRDR) Dose Index Registry (DIR) with the [employer] ([employer]). RADIATION OPTIMIZATION: All CT scans at this facility use at least one of these dose optimization te chniques: automated exposure control; mA and/or kV adjustment per patient size (includes targeted exa ms where dose is matched to clinical indication); or iterative reconstruction.
--- NOTE | 2022-08-31 09:50 | ED.GENADUL_ITS ---
Discharge Plan Disposition Patient Disposition: Home Condition: Stable Discharge Details Clinical Impression: Head trauma Primary Care Provider: Festus Nelson ED Provider: Bryson Enriquez Home Meds and New Rx's Prescriptions: Continued Adult Probiotic 3 billion cell capsule 3,000 mmu cells PO DAILY levalbuterol tartrate [Xopenex HFA] 15 GM HFA aerosol inhaler 2 puff Inhalation BID multivitamin [Daily Multi-Vitamin] 1 EACH tablet 1 ea PO DAILY Patient Comments: CF Specific formula Epidiolex 100 mg/mL solution 400 mg PO BID zonisamide 100 mg capsule 300 mg PO DAILY Rx Instructions: 100 mg QAM, 200 mg in PM. ursodiol 300 mg capsule 300 mg PO BID hydroxyzine HCl 50 mg tablet 50 mg PO QHS Rx Instructions: 50-100 mg at bedtime as needed for sleep esomeprazole magnesium 40 mg capsule,delayed release(DR/EC) 40 mg PO DAILY benztropine 0.5 mg tablet 0.5 mg PO BID Rx Instructions: 0.5 mg morning and evening Pancreaze 21,000-54,700- 83,900 unit capsule,delayed release(DR/EC) 5 cap PO TID Rx Instructions: administer 5 caps with meals and/or 3 caps with snacks trazodone 50 mg tablet 50 mg PO QHS cholecalciferol (vitamin D3) 125 mcg (5,000 unit) capsule 125 mcg PO DAILY Fish Oil 900 mg (320 mg- 580mg)-1,360 mg capsule 2 cap PO BID acetylcysteine [NAC] 600 mg capsule 600 mg PO BID iodine strong (Lugols) 5 % solution 2 drp PO .COMPLEX Rx Instructions: 2 drps PO; 2 drops in some water to help thyroid, CF melatonin 5 mg tablet,chewable 10 mg PO HS PRN Rx Instructions: 2-4 gummies HS Pulmozyme 1 mg/mL solution 2.5 mg inhalation DAILY hawthorn extract 150 mg capsule 300 mg PO BID Nasal Mist 0.9 % aerosol,spray 2 spray intranasal BID Rx Instructions: Xlear nasal spray saline with xylitol 2 sprays BID aripiprazole [Abilify] 5 mg tablet 5 mg PO DAILY Qty: 90 1RF Rx Instructions: Take 5 mg tab PO daily naltrexone 50 mg Tablet 4.5 mg PO HS Pulmozyme 1 mg/mL Solution 2.5 mg INHALATION DAILY tobramycin with nebulizer 300 mg/5 mL Solution For Nebulization 300 mg INHALATION BID Rx Instructions: separate doses by at least 6 hours vitamin D3-vitamin K2 (MK4) 1,000-100 unit-mcg Tablet 5 tab PO DAILY magnesium glycinate 100 mg magnesium Capsule 200 mg PO BID Discharge Instructions Instructions: Head Injury (ED) Additional Instructions: The cat scan did not show any concerning findings at this time If he has not had a tetanus vaccine/booster within 10 years he should have one. This can be done at his primary care office or the emergency department if he develops persistent vomiting or appears more ill or has new symptoms such as difficulty breathing return to the emergency department Medical Decision Making 21 yo male who has a hx of cystic fibrosis, seizure disorder, autism and nonverbal at baseline, comes in with cc of head trauma. History obtained from his caretakers. They report he got upset this morning and started to hit his head on the carpeted floor. There was concern of possible broken glass being on the ground from the day prior as well. No loc, no vomiting since and is acting his baseline per the caretakers. He has forehead hematoma with an abrasion over it, measuring approximately 4cm. no palpable skull fractures, perrl, no other signs of trauma, no evidence of pain when c/t/l spine palpated or chest/abdomen. Suspect scalp hematoma, will proceed with ct head given size of the hematoma and unable to perform full neuro exam due to him at baseline not following commands. imaging unremarkable other than scalp hematoma, no foreign bodies as well. He is awake and at his baseline. He is stable for d/c. They are not sure when his last tetanus vaccine and would need to get permission from his mother to consent to have this. Advised if not had one within 10 years he should have a tetanus booster. Differential Diagnosis Differential Diagnosis: tbi, abrasion Imaging Data Radiologic Study: Attestation: I personally reviewed and interpreted this imaging study as follows: Imaging: CT Scan Radiologist's impression: IMPRESSION: 1. Frontal scalp hematoma. 2. No acute post-traumatic brain injury. HPI General Mode of arrival: ambulatory . Date/Time Provider Initiated Documentation: 08/31/22 09:37 . Information obtained by: family (caretakers) . History of Present Illness 21 year old M presents to the emergency department with the chief complaint of head trauma, described as moderate, Patient started experiencing this hour(s) (1) and it has been constant. No relieving factors improve symptom(s), No exacerbating factors reported . Patient notes no other symptoms.. Patient did receive the following treatments prior to arrival, NSAID Related Data Home Medications Medication Instructions Recorded Confirmed levalbuterol tartrate 45 2 puff inhalation BID 12/02/12 02/19/22 mcg/actuation aerosol inhaler (Xopenex HFA) multivitamin (Daily Multi-Vitamin 1 ea PO DAILY 01/05/16 08/07/21 tablet) lactobacillus combination no.8 3 3,000 mmu cells PO DAILY 12/02/18 08/07/21 billion cell capsule (Adult Probiotic) acetylcysteine 600 mg capsule (NAC) 600 mg PO BID 08/02/21 02/19/22 benztropine 0.5 mg tablet 0.5 mg PO BID Swallowing 08/02/21 02/19/22 cannabidiol 100 mg/mL oral 400 mg PO BID 08/02/21 02/19/22 solution (Epidiolex) cholecalciferol (vitamin D3) 125 125 mcg PO DAILY 08/02/21 mcg (5,000 unit) capsule dornase kathryn 1 mg/mL solution for 2.5 mg inhalation DAILY 08/02/21 inhalation (Pulmozyme) esomeprazole magnesium 40 mg 40 mg PO DAILY 08/02/21 capsule,delayed release hawthorn extract 150 mg capsule 300 mg PO BID 08/02/21 02/19/22 hydroxyzine HCl 50 mg tablet 50 mg PO QHS 08/02/21 02/19/22 iodine strong (Lugols) 5 % oral 2 drp PO .COMPLEX 08/02/21 02/19/22 solution lipase 21,000-protease 5 cap PO TID 08/02/21 02/19/22 54,700-amylase 83,900 unit capsule,delayed rel (Pancreaze) melatonin 5 mg chewable tablet 10 mg PO HS PRN 08/02/21 02/19/22 omega-3 900 mg-dha 320 mg-epa 580 2 cap PO BID 08/02/21 02/19/22 mg-fish oil 1,360 mg capsule (Fish Oil) sodium chloride 0.9 % nasal spray 2 spray intranasal BID 08/02/21 02/19/22 aerosol (Nasal Mist) trazodone 50 mg tablet 50 mg PO QHS 08/02/21 02/19/22 ursodiol 300 mg capsule 300 mg PO BID 08/02/21 02/19/22 zonisamide 100 mg capsule 300 mg PO DAILY 08/02/21 02/19/22 aripiprazole 5 mg tablet (Abilify) 5 mg PO DAILY #90 tabs 12/13/21 cholecalciferol (vit D3) 1,000 5 tab PO DAILY 02/19/22 02/19/22 unit-vitamin K2 (MK4) 100 mcg tablet dornase kathryn 1 mg/mL solution for 2.5 mg inhalation DAILY 02/19/22 02/19/22 inhalation (Pulmozyme) magnesium glycinate 200 mg PO BID 02/19/22 02/19/22 naltrexone 50 mg tablet 4.5 mg PO HS 02/19/22 02/19/22 tobramycin with nebulizer 300 mg/5 300 mg inhalation BID 02/19/22 02/19/22 mL solution for nebulization Previous Rx's Medication Instructions Recorded aripiprazole 5 mg tablet (Abilify) 5 mg PO DAILY #90 tabs 12/13/21 Allergies Allergy/AdvReac Type Severity Reaction Status Date / Time amoxicillin Allergy Intermediate RASH Verified 08/31/22 09:44 levetiracetam [From Keppra] Allergy Unknown aggression Verified 08/31/22 09:44 elexacaftor [From Trikafta] AdvReac Severe Verified 08/31/22 09:44 ivacaftor [From Symdeko] AdvReac Severe Verified 08/31/22 09:44 tezacaftor [From Symdeko] AdvReac Severe Verified 08/31/22 09:44 Benzodiazepines AdvReac Intermediate Verified 08/31/22 09:44 latex AdvReac Unknown RASH Verified 08/31/22 09:44 montelukast [From Singulair] AdvReac Behavioral Verified 08/31/22 09:44 side effects General Stated Complaint: Laceration MARINA: 3 Review of Systems All systems reviewed & are unremarkable except as noted in HPI and below Constitutional Constitutional: Denies chills and Denies fever(s) Cardiovascular Cardiovascular: Denies dyspnea Respiratory Respiratory: Denies cough and Denies dyspnea Gastrointestinal Gastrointestinal: Denies abdominal pain and Denies vomiting PFSH All Active Problems (Updated 08/31/22 @ 10:09 by Bryson Enriquez MD) Head trauma (Acute) Well adult health check (Acute) Bipolar disorder, unspecified (Acute) Psychiatry evaluation at [facility] -01/17/2021 Seizure disorder (Chronic) Wtigm-8-phmpvqixgmc deficiency (Chronic) Medical History Xmbbx-4-agtzbmvfudx deficiency Learning problem Surgical History splinter removal Family History Mother Hyperlipidemia Sister Asthma Grandparent Essential hypertension Heart disease Hyperlipidemia Social History Smoking/Tobacco Use Status: Never Smoking risk assessment performed?: Yes Alcohol Intake: never Drug use: Never Substance use type: does not use Household members: family Pets and animals: Yes (1 dog at mom's, 1 dog at dad's and outdoor cats) Pets and animals: cat(s) and dog(s) Do you feel safe at home: Yes Do you feel safe in your relationship?: Yes Exam Const General: no acute distress Orientation: alert HENMT Head: no palpable skull fracture Ears: external ears normal General nose exam: external nose normal Mouth: moist mucous membranes Eyes General: appearance normal, both eyes and all related structures Neck Neck: normal visual inspection, full ROM, trachea midline, nontender, no tracheal deviation and no JVD Resp Effort & Inspection: normal respiratory effort and able to speak in complete sentences Cardio Rate: regular rate Skin General skin exam: no rashes or lesions noted Neuro General: patient alert and patient oriented x3 Extrem General: normal to inspection Psych Mental Status: mental status grossly normal Course Vital Signs Vital signs: Vital Signs Temperature 36.6 C 08/31/22 09:38 Pulse 65 08/31/22 09:38 Respiratory Rate 14 08/31/22 09:38 Blood Pressure 127/73 08/31/22 09:38 Pulse Oximetry 98 08/31/22 09:38 Temperature 36.6 C 08/31/22 09:38 Pulse 65 08/31/22 09:38 Respiratory Rate 14 08/31/22 09:38 Blood Pressure 127/73 08/31/22 09:38 Blood Pressure Position Sitting 04/29/23 09:38 Pulse Oximetry 98 08/31/22 09:38 Oxygen Delivery Method Room Air 08/31/22 09:38 Oxygen Flow Rate 0 08/31/22 09:38 Pain Level 4 08/31/22 09:38
--- NOTE | 2022-08-31 10:09 | DI.VRAD_ITS ---
PROCEDURE INFORMATION: Preliminary report Exam: CT Head Without Contrast Exam date and time: 08/31/2022 9:57 AM Age: 21 years old Clinical indication: Injury or trauma; Fall; Blunt trauma (contusions or hematomas); Consciousness not specified; Injury date: 08/31/2022 TECHNIQUE: Imaging protocol: Computed tomography of the head without contrast. COMPARISON: No relevant prior studies available. FINDINGS: Brain: No acute post-traumatic brain injury. Symmetric caliber of the cortical sulci. Cerebral ventricles: Normal configuration of the ventricles. Paranasal sinuses: Bilateral paranasal sinus mucoperiosteal disease and fluid. Mastoid air cells: No mastoid effusion. Bones/joints: No acute calvarial injury. Soft tissues: Frontal scalp hematoma. IMPRESSION: 1. Frontal scalp hematoma. 2. No acute post-traumatic brain injury. Dictated and Authenticated by: Ángel Appiah MD. Ordering:BECKIE Massey MD
== END 2022-08-31 10:37 | disposition home or self-care (01) ==
PROVIDERS: Emergency Provider Emergency Medicine; PCP Pediatrics
DX: S00.03XA Contusion of scalp, initial encounter (principal); G40.909 Epilepsy, unspecified, not intractable, without status epilepticus; W22.8XXA Striking against or struck by other objects, initial encounter
CPT/HCPCS: 99284; 70450; 99283

== ENCOUNTER 2022-09-13 20:43 | Emergency (ER) | payer MEDICAID, SELFPAY ==
[2022-09-13 20:55] VITALS: BP 124/69; PULSE 96; RESP 16; TEMP 37.2; O2SAT 96
[2022-09-13 21:58] VITALS: RESP 126
[2022-09-13] MEDS: Ondansetron O.D.T. 4 MG TABEF, 3 TABS/BTL PO (22:06)
--- NOTE | 2022-09-13 23:53 | ED.GENADUL_ITS ---
Discharge Plan Disposition Patient Disposition: Home Discharge Details Clinical Impression: Nausea & vomiting Primary Care Provider: Festus Nelson ED Provider: Rufina Jernigan Home Meds and New Rx's Prescriptions: Continued Adult Probiotic 3 billion cell capsule 3,000 mmu cells PO DAILY levalbuterol tartrate [Xopenex HFA] 15 GM HFA aerosol inhaler 2 puff Inhalation BID multivitamin [Daily Multi-Vitamin] 1 EACH tablet 1 ea PO DAILY Patient Comments: CF Specific formula Epidiolex 100 mg/mL solution 400 mg PO BID zonisamide 100 mg capsule 300 mg PO DAILY Rx Instructions: 100 mg QAM, 200 mg in PM. ursodiol 300 mg capsule 300 mg PO BID hydroxyzine HCl 50 mg tablet 50 mg PO QHS Rx Instructions: 50-100 mg at bedtime as needed for sleep esomeprazole magnesium 40 mg capsule,delayed release(DR/EC) 40 mg PO DAILY benztropine 0.5 mg tablet 0.5 mg PO BID Rx Instructions: 0.5 mg morning and evening Pancreaze 21,000-54,700- 83,900 unit capsule,delayed release(DR/EC) 5 cap PO TID Rx Instructions: administer 5 caps with meals and/or 3 caps with snacks trazodone 50 mg tablet 50 mg PO QHS cholecalciferol (vitamin D3) 125 mcg (5,000 unit) capsule 125 mcg PO DAILY Fish Oil 900 mg (320 mg- 580mg)-1,360 mg capsule 2 cap PO BID acetylcysteine [NAC] 600 mg capsule 600 mg PO BID iodine strong (Lugols) 5 % solution 2 drp PO .COMPLEX Rx Instructions: 2 drps PO; 2 drops in some water to help thyroid, CF melatonin 5 mg tablet,chewable 10 mg PO HS PRN Rx Instructions: 2-4 gummies HS Pulmozyme 1 mg/mL solution 2.5 mg inhalation DAILY hawthorn extract 150 mg capsule 300 mg PO BID Nasal Mist 0.9 % aerosol,spray 2 spray intranasal BID Rx Instructions: Xlear nasal spray saline with xylitol 2 sprays BID aripiprazole [Abilify] 5 mg tablet 5 mg PO DAILY Qty: 90 1RF Rx Instructions: Take 5 mg tab PO daily naltrexone 50 mg Tablet 4.5 mg PO HS Pulmozyme 1 mg/mL Solution 2.5 mg INHALATION DAILY tobramycin with nebulizer 300 mg/5 mL Solution For Nebulization 300 mg INHALATION BID Rx Instructions: separate doses by at least 6 hours vitamin D3-vitamin K2 (MK4) 1,000-100 unit-mcg Tablet 5 tab PO DAILY magnesium glycinate 100 mg magnesium Capsule 200 mg PO BID Discharge Instructions Instructions: Acute Nausea and Vomiting (ED) Additional Instructions: You may try taking the Zofran as needed for nausea and vomiting, I recommend taking the Zofran and waiting at least 20 minutes before having anything p.o. Stay away from solid food until you have been able to tolerate fluids for several hours Please return immediately with new or worsening complaints including persistent vomiting, blood in vomitus, personality change Referrals: Festus Nelson MD [Primary Care Provider] - 1 day Discharge Data Discharge Date/Time-TO BE ENTERED AT DEPARTURE: 09/13/22 22:04 Medical Decision Making Patient is reportedly at his baseline, he is alert and nonverbal at baseline No visible sign of trauma He has stable vitals You are given a prescription for Zofran and encouraged to take his meds 20 minutes after the Zofran and to use small amounts of liquids initially We discussed labs at this time and caregivers feel that the risk would outweigh the benefit and prefer to try supportive care initially with Zofran They will return immediately with new or worsening complaints Back active vomiting in the emergency department, will be closely observed for the entirety of this evening, no seizure-like activity noted RR 16 at tn Medical Records Medical records reviewed: Yes I reviewed the patient's medical records. HPI General Date/Time Provider Initiated Documentation: 09/13/22 21:32 . HPI Narrative: This 21-year-old male with history of autism, epilepsy presents and cystic fibrosis presents with report of vomiting x3 today, concern regarding inability to take meds for epilepsy history. Patient has not vomited since 6. Guardian aware and providers in the emergency department. States they feel like patient is improving. Denies any medications or known spoiled food. States patient was at his baseline. Denies any trauma Related Data Home Medications Medication Instructions Recorded Confirmed levalbuterol tartrate 45 2 puff inhalation BID 12/02/12 09/13/22 mcg/actuation aerosol inhaler (Xopenex HFA) multivitamin (Daily Multi-Vitamin 1 ea PO DAILY 01/05/16 09/13/22 tablet) lactobacillus combination no.8 3 3,000 mmu cells PO DAILY 12/02/18 09/13/22 billion cell capsule (Adult Probiotic) acetylcysteine 600 mg capsule (NAC) 600 mg PO BID 08/02/21 09/13/22 benztropine 0.5 mg tablet 0.5 mg PO BID Swallowing 08/02/21 09/13/22 cannabidiol 100 mg/mL oral 400 mg PO BID 08/02/21 09/13/22 solution (Epidiolex) cholecalciferol (vitamin D3) 125 125 mcg PO DAILY 08/02/21 09/13/22 mcg (5,000 unit) capsule dornase kathryn 1 mg/mL solution for 2.5 mg inhalation DAILY 08/02/21 09/13/22 inhalation (Pulmozyme) esomeprazole magnesium 40 mg 40 mg PO DAILY 08/02/21 09/13/22 capsule,delayed release hawthorn extract 150 mg capsule 300 mg PO BID 08/02/21 09/13/22 hydroxyzine HCl 50 mg tablet 50 mg PO QHS 08/02/21 09/13/22 iodine strong (Lugols) 5 % oral 2 drp PO .COMPLEX 08/02/21 09/13/22 solution lipase 21,000-protease 5 cap PO TID 08/02/21 09/13/22 54,700-amylase 83,900 unit capsule,delayed rel (Pancreaze) melatonin 5 mg chewable tablet 10 mg PO HS PRN 08/02/21 09/13/22 omega-3 900 mg-dha 320 mg-epa 580 2 cap PO BID 08/02/21 09/13/22 mg-fish oil 1,360 mg capsule (Fish Oil) sodium chloride 0.9 % nasal spray 2 spray intranasal BID 08/02/21 09/13/22 aerosol (Nasal Mist) trazodone 50 mg tablet 50 mg PO QHS 08/02/21 09/13/22 ursodiol 300 mg capsule 300 mg PO BID 08/02/21 09/13/22 zonisamide 100 mg capsule 300 mg PO DAILY 08/02/21 09/13/22 aripiprazole 5 mg tablet (Abilify) 5 mg PO DAILY #90 tabs 12/13/21 09/13/22 cholecalciferol (vit D3) 1,000 5 tab PO DAILY 02/19/22 09/13/22 unit-vitamin K2 (MK4) 100 mcg tablet dornase kathryn 1 mg/mL solution for 2.5 mg inhalation DAILY 02/19/22 09/13/22 inhalation (Pulmozyme) magnesium glycinate 200 mg PO BID 02/19/22 09/13/22 naltrexone 50 mg tablet 4.5 mg PO HS 02/19/22 09/13/22 tobramycin with nebulizer 300 mg/5 300 mg inhalation BID 02/19/22 09/13/22 mL solution for nebulization Previous Rx's Medication Instructions Recorded aripiprazole 5 mg tablet (Abilify) 5 mg PO DAILY #90 tabs 12/13/21 Allergies Allergy/AdvReac Type Severity Reaction Status Date / Time amoxicillin Allergy Intermediate RASH Verified 09/13/22 21:01 levetiracetam [From Keppra] Allergy Unknown aggression Verified 09/13/22 21:01 elexacaftor [From Trikafta] AdvReac Severe Verified 09/13/22 21:01 ivacaftor [From Symdeko] AdvReac Severe Verified 09/13/22 21:01 tezacaftor [From Symdeko] AdvReac Severe Verified 09/13/22 21:01 Benzodiazepines AdvReac Intermediate Verified 09/13/22 21:01 latex AdvReac Unknown RASH Verified 09/13/22 21:01 montelukast [From Singulair] AdvReac Behavioral Verified 09/13/22 21:01 side effects General Stated Complaint: GenMedical MARINA: 3 PFSH All Active Problems (Updated 09/13/22 @ 21:53 by MAYNOR Youssef) Head trauma (Acute) Nausea & vomiting (Acute) Well adult health check (Acute) Bipolar disorder, unspecified (Acute) Psychiatry evaluation at [facility] -01/17/2021 Seizure disorder (Chronic) Avqrx-1-dikdemdubxq deficiency (Chronic) Medical History Oqwdq-6-mcyvxhefhyu deficiency Learning problem Surgical History splinter removal Family History Mother Hyperlipidemia Sister Asthma Grandparent Essential hypertension Heart disease Hyperlipidemia Social History Smoking/Tobacco Use Status: Never Smoking risk assessment performed?: Yes Alcohol Intake: never Drug use: Never Substance use type: does not use Household members: family Pets and animals: Yes (1 dog at mom's, 1 dog at dad's and outdoor cats) Pets and animals: cat(s) and dog(s) Do you feel safe at home: Yes Do you feel safe in your relationship?: Yes Exam Const General: cooperative, comfortable and no acute distress Eyes Pupils: PERRL Resp Effort & Inspection: normal respiratory effort Cardio Rate: regular rate Neuro General: patient alert Course Vital Signs Vital signs: Vital Signs Temperature 37.2 C 09/13/22 20:55 Pulse 96 H 09/13/22 20:55 Respiratory Rate 16 09/13/22 20:55 Blood Pressure 124/69 09/13/22 20:55 Pulse Oximetry 96 09/13/22 20:55 Temperature 37.2 C 09/13/22 20:55 Temperature Source Oral 09/13/22 20:55 Pulse 96 H 09/13/22 20:55 Respiratory Rate 16 09/13/22 20:55 Respiratory Effort Normal 09/13/22 20:55 Blood Pressure 124/69 09/13/22 20:55 Blood Pressure Position Sitting 09/13/22 20:55 Pulse Oximetry 96 09/13/22 20:55 Oxygen Delivery Method Room Air 09/13/22 20:55 Oxygen Flow Rate 0 09/13/22 20:55 Pain Level 0 09/13/22 20:55
== END 2022-09-13 22:04 | disposition home or self-care (01) ==
PROVIDERS: Emergency Provider Physician Assistant; PCP Pediatrics
DX: R11.2 Nausea with vomiting, unspecified (principal)
CPT/HCPCS: 99283; 99284

== ENCOUNTER 2022-10-14 04:51 | Outpatient (CLI) | payer MEDICAID, SELFPAY ==
[2022-10-14 14:15] LABS: ALT 98 U/L (16-63); AST 55 U/L (15-37); Albumin 3.6 g/dL (3.4-5.0); Alkaline Phosphatase 387 U/L (46-116); Bilirubin, Direct 0.5 mg/dL (0.0-0.2); Bilirubin, Total 1.2 mg/dL (0.2-1.0); Total Protein 7.8 g/dL (6.4-8.2)
== END 2022-10-14 04:52 | disposition home or self-care (01) ==
PROVIDERS: PCP Pediatrics; Visit Provider Psychiatry & Neurology Behavioral Neurology & Neuropsychiatry
DX: G40.219 Localization-related (focal) (partial) symptomatic epilepsy and epileptic syndromes with complex partial seizures, intractable, without status epilepticus (principal); Z51.81 Encounter for therapeutic drug level monitoring; Z79.899 Other long term (current) drug therapy
CPT/HCPCS: 36415; 80076; 80235

== ENCOUNTER 2022-10-22 02:33 | Outpatient (CLI) | payer MEDICAID, SELFPAY ==
--- NOTE | 2022-10-22 | DI.US_ITS ---
Exam(s) US ABDOMEN EXAM: US ABDOMEN CLINICAL HISTORY: NAUSEA, VOMITING, R11.2, CYSTIC FIBROSIS, ? STONES/SLUDGE,GB WALL THICKENIN TECHNIQUE: Ultrasound abdomen performed using standard protocol. COMPARISON: No exams were available for comparison FINDINGS: ABDOMINAL AORTA AND IVC: Visualized portions normal caliber. PANCREAS: Normal where visualized. LIVER: Normal. Hepatopedal flow in the Portal Vein. GALLBLADDER:No evidence of cholelithiasis. No evidence of wall thickening. No pericholecystic fluid i dentified. BILIARY SYSTEM: Common bile duct measures < 7 mm. No intrahepatic biliary ductal dilation. BARRIOS'S SIGN: Negative. KIDNEYS: Kidneys are symmetric in size. No evidence of renal calculi. No evidence of hydronephrosis. No renal mass or cyst identified. SPLEEN: The spleen measures 16.1 cm. ASCITES: None seen. IMPRESSION: 1. Splenomegaly. 2. Unremarkable gallbladder. No gallbladder wall thickening or biliary ductal dilatation. DATA REPOSITORY:
== END 2022-10-22 02:53 ==
LOC: DI 02:34
PROVIDERS: PCP Pediatrics; Visit Provider Internal Medicine Gastroenterology
DX: R16.1 Splenomegaly, not elsewhere classified (principal); R11.2 Nausea with vomiting, unspecified
CPT/HCPCS: 76700

== ENCOUNTER 2022-11-27 10:19 | Emergency (ER) | payer MEDICAID, SELFPAY ==
[2022-11-27 10:22] VITALS: BP 120/72; PULSE 56; RESP 18; TEMP 37.4; O2SAT 99
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
== END 2022-11-27 13:20 | disposition home or self-care (01) ==
PROVIDERS: Emergency Provider Emergency Medicine; PCP Pediatrics
DX: S09.93XA Unspecified injury of face, initial encounter (principal); X58.XXXA Exposure to other specified factors, initial encounter
CPT/HCPCS: 99284; 70486

== ENCOUNTER 2023-01-23 12:58 | Observation (INO) | payer MEDICAID, SELFPAY ==
[2023-01-23] VITALS (32 sets, daily range): BP systolic 114–143; BP diastolic 60–89; PULSE 61–75; RESP 16–18; TEMP 36.6–36.8; O2SAT 94–99
--- NOTE | 2023-01-23 | DI.CT_ITS ---
Exam(s) CT ABDOMEN PELVIS W EXAM: CT ABDOMEN PELVIS W CLINICAL HISTORY: r/o appendicitis TECHNIQUE: Imaging Protocol: Axial computed tomography images with coronal and sagittal reformatted images were created and reviewed CONTRAST MATERIAL: Intravenous: Omnipaque 350 Contrast volume:82 mL Oral: Yes COMPARISON: CT CT CHEST/ABD/PEL W from 01/23/2023 FINDINGS: ABDOMEN: Lung Bases: There is a tree-in-bud appearance in the lower lobes with associated bronchiectasis. Liver: The liver has a nodular contour suspicious for hepatic cirrhosis. Gastroesophageal varices ar e seen. No measurable mass. Portal, Superior Mesenteric, and Splenic Veins: Unremarkable. Gallbladder and Biliary Tract: No radiodense calculus or dilation. Pancreas: There is fatty replacement of the pancreas. Spleen: Splenomegaly. Adrenals: No masses seen. Kidneys: Normal size, contour and axis. No radiodense stones or obstructive uropathy. No masses seen. Abdominal Aorta: Abdominal portion non-dilated. Bowel: There is no evidence of bowel obstruction. The appendix is seen in a transverse location exte nding to the midline. It measures 2.3 cm in diameter proximally. There may be appendiceal intussusc eption into the cecum of approximately 2.5 cm in length. No Natalia appendiceal stranding or fluid is s een. There is no abscess identified. Peritoneal Cavity: No ascites, collection or mesenteric inflammatory response. No free air. Lymph Nodes: Within normal limits. Bones: Within normal limits for the patient's age. Soft Tissues: Unremarkable. PELVIS: Bladder: Symmetric distention, no gross wall thickening. Reproductive Organs: Unremarkable as visualized. Lymph Nodes: Within normal limits. Bones: Within normal limits for the patient's age. IMPRESSION: 1. Findings of hepatic cirrhosis, abdominal varices and splenomegaly. 2. Fatty infiltration of the pancreas and findings of the lung suggestive of cysts fibrosis. 3. Prominence of the appendix suspicious for an associated acute appendicitis. RADIATION DOSE DELIVERED: 715.14mGy.cm Total DLP DATA REPOSITORY: All CT scans at this facility are submitted to the National Radiology Data Registry (NRDR) Dose Index Registry (DIR) with the [employer] (ACR). RADIATION OPTIMIZATION: All CT scans at this facility use at least one of these dose optimization te chniques: automated exposure control; mA and/or kV adjustment per patient size (includes targeted exa ms where dose is matched to clinical indication); or iterative reconstruction.
--- NOTE | 2023-01-23 13:06 | ED.GENADUL_ITS ---
Discharge Plan Disposition Patient Disposition: Admit to [facility] Condition: Stable Discharge Details Clinical Impression: Abdominal pain in male Primary Care Provider: Festus Nelson ED Provider: Vijaya Peterson Home Meds and New Rx's Prescriptions: No Action Adult Probiotic 3 billion cell capsule 3,000 mmu cells PO DAILY levalbuterol tartrate [Xopenex HFA] 15 GM HFA aerosol inhaler 2 puff Inhalation BID multivitamin [Daily Multi-Vitamin] 1 EACH tablet 1 ea PO DAILY Patient Comments: CF Specific formula Epidiolex 100 mg/mL solution 400 mg PO BID zonisamide 100 mg capsule 300 mg PO DAILY Rx Instructions: 100 mg QAM, 200 mg in PM. ursodiol 300 mg capsule 300 mg PO BID hydroxyzine HCl 50 mg tablet 50 mg PO QHS Rx Instructions: 50-100 mg at bedtime as needed for sleep esomeprazole magnesium 40 mg capsule,delayed release(DR/EC) 40 mg PO DAILY benztropine 0.5 mg tablet 0.5 mg PO BID Rx Instructions: 0.5 mg morning and evening Pancreaze 21,000-54,700- 83,900 unit capsule,delayed release(DR/EC) 5 cap PO TID Rx Instructions: administer 5 caps with meals and/or 3 caps with snacks trazodone 50 mg tablet 50 mg PO QHS cholecalciferol (vitamin D3) 125 mcg (5,000 unit) capsule 125 mcg PO DAILY Fish Oil 900 mg (320 mg- 580mg)-1,360 mg capsule 2 cap PO BID acetylcysteine [NAC] 600 mg capsule 600 mg PO BID iodine strong (Lugols) 5 % solution 2 drp PO .COMPLEX Rx Instructions: 2 drps PO; 2 drops in some water to help thyroid, CF melatonin 5 mg tablet,chewable 10 mg PO HS PRN Rx Instructions: 2-4 gummies HS Pulmozyme 1 mg/mL solution 2.5 mg inhalation DAILY hawthorn extract 150 mg capsule 300 mg PO BID Nasal Mist 0.9 % aerosol,spray 2 spray intranasal BID Rx Instructions: Xlear nasal spray saline with xylitol 2 sprays BID aripiprazole [Abilify] 5 mg tablet 5 mg PO DAILY Qty: 90 1RF Rx Instructions: Take 5 mg tab PO daily naltrexone 50 mg Tablet 4.5 mg PO HS Pulmozyme 1 mg/mL Solution 2.5 mg INHALATION DAILY tobramycin with nebulizer 300 mg/5 mL Solution For Nebulization 300 mg INHALATION BID Rx Instructions: separate doses by at least 6 hours vitamin D3-vitamin K2 (MK4) 1,000-100 unit-mcg Tablet 5 tab PO DAILY magnesium glycinate 100 mg magnesium Capsule 200 mg PO BID midazolam 5 mg/2.5 mL Syringe 2.5 mg lacosamide 200 mg Tablet 200 mg BID Epidiolex 100 mg/mL solution 400 mg BID esomeprazole sodium 40 mg Recon Soln 40 mg 1XD aripiprazole 10 mg tablet 10 mg 1XD trazodone 100 mg tablet 50 mg 1XD hydroxyzine HCl 50 mg tablet 50 mg BID PRN cholecalciferol (vitamin D3) 125 mcg (5,000 unit) tablet 125 mcg 1XD vitamin K2 100 mcg Capsule 100 mcg PO 1XD omega-3 fatty acids-fish oil 300-1,000 mg capsule 1 cap 1XD acetylcysteine 600 mg Capsule 600 mg BID famotidine 20 mg tablet 20 mg BID ursodiol 300 mg capsule 300 mg BID levalbuterol tartrate [Xopenex HFA] 45 mcg/actuation HFA aerosol inhaler INHALATION BID budesonide-formoterol [Symbicort] 160-4.5 mcg/actuation HFA aerosol inhaler INHALATION BID hypertonic saline 7 percent 1 vial BID Pulmozyme 1 mg/mL solution 2.5 mg INHALATION 1XD [place] 75 mg/mL solution for nebulization 75 mg INHALATION TID Pancreaze 21,000-54,700- 83,900 unit capsule,delayed release(DR/EC) 3 - 5 cap PO QMEALS coenzyme Q10 120 mg Capsule 120 mg PO DAILY Medical Decision Making <Laverne Quintanilla MD - Last Filed: 01/23/23 18:43> This is a nonverbal 22-year-old male with full-time care who presents with what his caregivers believe is abdominal pain because he was clutching his abdomen and hitting his head against a wall. They tell me he in fact into the wall but did not lose consciousness. The patient has no prior history of abdominal surgeries. His exam does reveal some mild generalized tenderness. He is not distended. My plan is to obtain blood work including a CBC looking for leukocytosis anemia and left shift. We will obtain a comprehensive metabolic panel checking his electrolytes renal function blood sugar and liver function test. I will obtain a lipase and a CT of the head since he has had head trauma and C-spine and CT of the chest abdomen and pelvis to rule out traumatic injury and intra-abdominal pathology. We will give him IV fluids and ketorolac since he cannot take acetaminophen Differential Diagnosis Differential Diagnosis: Constipation, appendicitis, gastroenteritis, pancreatit is, hepatitis Medical Records Medical records reviewed: Yes I reviewed the patient's medical records. Imaging Data Radiologic Study: Imaging: CT Scan (Chest CT with contrast) Radiologist's impression: V rad impression: 1. Constitutional findings in the lung most consistent with cystic fibrosis. The differential includes allergic bronchopulmonary aspergillosis, ciliary dyskinesia, etc. 2. There is no focal consolidation. Radiologic Study #2: Imaging: CT Scan (CT abdomen and pelvis with contrast.) Radiologist's impression: Impression 1. Prominent currently blind ending bowel structure in the right lower quadrant which may represent a dilated appendix, often associated with cystic fibrosis. However, appendicitis is not excluded, and clinical correlation is needed. Ultrasound follow-up for post oral contrast CT follow-up may be helpful. 2. No visible acute solid organ injury or bowel injury. 3. Cirrhosis and splenomegaly with fatty infiltration of the pancreas, colonic wall thickening and prominent appendix, altogether along with lung findings suggesting cystic fibrosis. See body of report for detail. 4. Paraesophageal, perigastric and splenic hilar varices. 5. Small liver measuring approximately 12 cm in length in the right midclavicular line, with microlobulated borders consistent with cirrhosis. 6. The spleen is prominent measuring up to 15.5 x 5.7 x 15.4 cm, which along with varices suggest portal hypertension. 7. Apparent mild wall thickening throughout the colon which is probably due to cystic fibrosis but colitis or lymphedema are not excluded. 8. Apparent partial fatty replacement of pancreas, associated with cystic fibrosis. No masses in the region. No pancreatitis. Lab Data Lab results reviewed: Yes I reviewed the patient's lab results. Lab results narrative: Elevated transaminases. Mild thrombocytopenia. Normal renal function chronically elevated transaminases <Vijaya Peterson MD - Last Filed: 01/23/23 23:23> This is a nonverbal 22-year-old male with full-time care who presents with what his caregivers believe is abdominal pain because he was clutching his abdomen and hitting his head against a wall. They tell me he in fact into the wall but did not lose consciousness. The patient has no prior history of abdominal surgeries. His exam does reveal some mild generalized tenderness. He is not distended. My plan is to obtain blood work including a CBC looking for leukocytosis anemia and left shift. We will obtain a comprehensive metabolic panel checking his electrolytes renal function blood sugar and liver function test. I will obtain a lipase and a CT of the head since he has had head trauma and C-spine and CT of the chest abdomen and pelvis to rule out traumatic injury and intra-abdominal pathology. We will give him IV fluids and ketorolac since he cannot take acetaminophen 2000 Case has now been discussed twice with Dr. Ruelas from surgery. She had wanted the patient's CAT scan repeated with oral contrast. This has been done but the oral contrast has not reached his appendix yet. I spoke to radiology and we will repeat the pelvis only, but wait 1-1/2 hours to do this. MD Nicholas [id number] Ruelas from surgery multiple additional times. At this point she would like to admit the patient for overnight observation. I have examined the patient's abdomen and it is soft and nontender. I did tell her this. Afterwards I spoke with Grant's housekeeping associate who was not happy with the fact that he had not been updated and Grant has been here all day. I have apologized to staff. He wondered about sending him home because he has a lot of treatments that need to be done. He is not [place] power of workers compensation attorney and I felt like this discussion was a little bit inappropriate. His mom is his healthcare power of workers compensation attorney. I did explain to both he and staff members in the ED that there were some abnormalities on the CT that were concerning, in spite of his CF. His appendix may possibly be intussuscepted into his cecum. Surgical observation seems to make sense. MD Nicholas HPI <Laverne Quintanilla MD - Last Filed: 01/23/23 18:43> General Mode of arrival: ambulatory . Date/Time Provider Initiated Documentation: 01/23/23 13:06 . Limitations to Documentation: other (The patient is nonverbal history from full- time caregivers) . Information obtained by: RN notes reviewed and old records reviewed . HPI Narrative: This is a 22-year-old male with history of cognitive delay and cystic fibrosis who is nonverbal who is brought in by his 2 caregivers known his direct support providers for concerns of abdominal pain. They say that he does have a history of constipation but did have a small bowel movement this morning. They noted today that he was crying and clutching his stomach. He was also hitting his head against a wall which she does if he was in pain or upset. He has had some dark urine and they think some mild dysuria. There is also concerns that he had some erythema around his penis. He is uncircumcised. They think he may not have been feeling well for several days because he seemed more agitated. He has not had a documented fever but has felt slightly warm to touch. He has no prior history of abdominal surgeries. He has not had any vomiting. He has not had any medications for the pain. The remainder of the review of systems is unobtainable because of the patient's nonverbal baseline status. He has not had any cold symptoms or shortness of breath. There was no witnessed loss of consciousness. He did sustained a small abrasion to his head. He is close to his baseline mental status currently. the remainder of the review of systems is unobtainable because of the patient's nonverbal baseline status Related Data Home Medications Medication Instructions Recorded Confirmed levalbuterol tartrate 45 2 puff inhalation BID 12/02/12 09/13/22 mcg/actuation aerosol inhaler (Xopenex HFA) multivitamin (Daily Multi-Vitamin 1 ea PO DAILY 01/05/16 09/13/22 tablet) lactobacillus combination no.8 3 3,000 mmu cells PO DAILY 12/02/18 09/13/22 billion cell capsule (Adult Probiotic) acetylcysteine 600 mg capsule (NAC) 600 mg PO BID 08/02/21 09/13/22 benztropine 0.5 mg tablet 0.5 mg PO BID Swallowing 08/02/21 09/13/22 cannabidiol 100 mg/mL oral 400 mg PO BID 08/02/21 09/13/22 solution (Epidiolex) cholecalciferol (vitamin D3) 125 125 mcg PO DAILY 08/02/21 09/13/22 mcg (5,000 unit) capsule dornase kathryn 1 mg/mL solution for 2.5 mg inhalation DAILY 08/02/21 09/13/22 inhalation (Pulmozyme) esomeprazole magnesium 40 mg 40 mg PO DAILY 08/02/21 09/13/22 capsule,delayed release hawthorn extract 150 mg capsule 300 mg PO BID 08/02/21 09/13/22 hydroxyzine HCl 50 mg tablet 50 mg PO QHS 08/02/21 09/13/22 iodine strong (Lugols) 5 % oral 2 drp PO .COMPLEX 08/02/21 09/13/22 solution lipase 21,000-protease 5 cap PO TID 08/02/21 09/13/22 54,700-amylase 83,900 unit capsule,delayed rel (Pancreaze) melatonin 5 mg chewable tablet 10 mg PO HS PRN 08/02/21 09/13/22 omega-3 900 mg-dha 320 mg-epa 580 2 cap PO BID 08/02/21 09/13/22 mg-fish oil 1,360 mg capsule (Fish Oil) sodium chloride 0.9 % nasal spray 2 spray intranasal BID 08/02/21 09/13/22 aerosol (Nasal Mist) trazodone 50 mg tablet 50 mg PO QHS 08/02/21 09/13/22 ursodiol 300 mg capsule 300 mg PO BID 08/02/21 09/13/22 zonisamide 100 mg capsule 300 mg PO DAILY 08/02/21 09/13/22 aripiprazole 5 mg tablet (Abilify) 5 mg PO DAILY #90 tabs 12/13/21 09/13/22 cholecalciferol (vit D3) 1,000 5 tab PO DAILY 02/19/22 09/13/22 unit-vitamin K2 (MK4) 100 mcg tablet dornase kathryn 1 mg/mL solution for 2.5 mg inhalation DAILY 02/19/22 09/13/22 inhalation (Pulmozyme) magnesium glycinate 200 mg PO BID 02/19/22 09/13/22 naltrexone 50 mg tablet 4.5 mg PO HS 02/19/22 09/13/22 tobramycin with nebulizer 300 mg/5 300 mg inhalation BID 02/19/22 09/13/22 mL solution for nebulization acetylcysteine 600 mg capsule 600 mg BID 01/23/23 01/23/23 aripiprazole 10 mg tablet 10 mg 1XD 01/23/23 01/23/23 aztreonam lysine 75 mg/mL solution 75 mg inhalation TID 01/23/23 01/23/23 for nebulization ([place]) budesonide-formoterol HFA 160 puff inhalation BID 01/23/23 mcg-4.5 mcg/actuation aerosol inhaler (Symbicort) cannabidiol 100 mg/mL oral 400 mg BID 01/23/23 01/23/23 solution (Epidiolex) cholecalciferol (vitamin D3) 125 125 mcg 1XD 01/23/23 01/23/23 mcg (5,000 unit) tablet coenzyme Q10 120 mg capsule 120 mg PO DAILY 01/23/23 01/23/23 dornase kathryn 1 mg/mL solution for 2.5 mg inhalation 1XD 01/23/23 01/23/23 inhalation (Pulmozyme) esomeprazole sodium 40 mg 40 mg 1XD 01/23/23 01/23/23 intravenous solution famotidine 20 mg tablet 20 mg BID 01/23/23 01/23/23 hydroxyzine HCl 50 mg tablet 50 mg BID PRN 01/23/23 01/23/23 hypertonic saline 1 vial BID 01/23/23 lacosamide 200 mg tablet 200 mg BID 01/23/23 01/23/23 levalbuterol tartrate 45 puff inhalation BID 01/23/23 mcg/actuation aerosol inhaler (Xopenex HFA) lipase 21,000-protease 3 - 5 cap PO QMEALS 01/23/23 01/23/23 54,700-amylase 83,900 unit capsule,delayed rel (Pancreaze) midazolam 5 mg/2.5 mL oral syringe 2.5 mg 01/23/23 (FOR ORAL USE ONLY) omega-3 fatty acids-fish oil 300 1 cap 1XD 01/23/23 01/23/23 mg-1,000 mg capsule trazodone 100 mg tablet 50 mg 1XD 01/23/23 01/23/23 ursodiol 300 mg capsule 300 mg BID 01/23/23 01/23/23 vitamin K2 100 mcg capsule 100 mcg PO 1XD 01/23/23 01/23/23 Previous Rx's Medication Instructions Recorded aripiprazole 5 mg tablet (Abilify) 5 mg PO DAILY #90 tabs 12/13/21 Allergies Allergy/AdvReac Type Severity Reaction Status Date / Time amoxicillin Allergy Intermediate RASH Verified 11/27/22 10:27 levetiracetam [From Keppra] Allergy Unknown aggression Verified 11/27/22 10:27 ciprofloxacin [From Cipro] Allergy Unverified 01/23/23 22:01 clobazam Allergy Unverified 01/23/23 22:01 lamotrigine Allergy Unverified 01/23/23 22:01 elexacaftor [From Trikafta] AdvReac Severe Verified 11/27/22 10:27 ivacaftor [From Symdeko] AdvReac Severe Verified 11/27/22 10:27 tezacaftor [From Symdeko] AdvReac Severe Verified 11/27/22 10:27 Benzodiazepines AdvReac Intermediate Verified 11/27/22 10:27 latex AdvReac Unknown RASH Verified 11/27/22 10:27 montelukast [From Singulair] AdvReac Behavioral Verified 11/27/22 10:27 side effects General Stated Complaint: Abd Prob MARINA: 3 Review of Systems <Laverne Quintanilla MD - Last Filed: 01/23/23 18:43> Narrative: see hpi PFSH <Laverne Quintanilla MD - Last Filed: 01/23/23 18:43> All Active Problems (Updated 01/23/23 @ 22:29 by Vijaya Peterson MD) Abdominal pain in male (Acute) Constipation (Acute) Developmental non-verbal disorder (Acute) Abdominal pain (Acute) Well adult health check (Acute) Bipolar disorder, unspecified (Acute) Psychiatry evaluation at [facility] -01/17/2021 Seizure disorder (Chronic) Ileps-2-aktokxhcimc deficiency (Chronic) Medical History Pghgf-0-zkipfsteysu deficiency Learning problem Surgical History splinter removal Family History Mother Hyperlipidemia Sister Asthma Grandparent Essential hypertension Heart disease Hyperlipidemia Social History Smoking/Tobacco Use Status: Never Smoking risk assessment performed?: Yes Alcohol Intake: never Drug use: Never Substance use type: does not use Household members: family Housing: apartment Pets and animals: Yes (1 dog at mom's, 1 dog at dad's and outdoor cats) Pets and animals: cat(s) and dog(s) Do you feel safe at home: Yes Do you feel safe in your relationship?: Yes Exam <Laverne Quintanilla MD - Last Filed: 01/23/23 18:43> Narrative Exam Narrative: The patient is a well-developed male sitting on the stretcher rocking. He does understand and will follow simple commands. He was afebrile normotensive and not tachycardic or febrile on arrival. His room air O2 sat was normal at 99%. Const General: cooperative and healthy appearing Limitations: behavioral limitations and other limitations (As above) Other: Mild distress HENMT Other: Normocephalic. There is a small abrasion to the center of the forehead. There is no active bleeding. The wound is clean and dry. There is no hemotympanum otorrhea or rhinorrhea anders sign or raccoon's eyes. Eyes Other: Pupils are equal round react to light and accommodation. Extract muscles are intact. No photophobia Neck Other: Neck is supple nontender full range of motion no midline tenderness of the CTL spine. Chest Other: Chest is nontender Resp Other: Lungs are clear to auscultation without wheezing rales or rhonchi. He does have some intermittent coarse breath sounds at the right base. No retractions or nasal flaring. Cardio Other: His heart has regular rate and rhythm. I cannot appreciate any murmur rub or gallop. PMI is not displaced. No JVD or peripheral edema GI Other: His abdomen reveals mild generalized tenderness. No rebound. He has some voluntary guarding. He has normal active bowel sounds. He does have splenomegaly. No bruising or distention Other: He has normal uncircumcised male genitalia. Foreskin is easily retracted. There is no significant erythema swelling lesions or discharge. The testes are descended and are nontender. I cannot appreciate any hernias Back/Spine/Pelvis Other: No midline tenderness or step-off. Skin Other: His skin is warm and dry normal for ethnicity. There is a abrasion to the center of the forehead Neuro Other: The patient is alert and following commands. He is moving all of his extremities normally. Cranial nerves II through XII appear intact. He has 2+ symmetric patellar reflexes 1+ ankle jerks. No Babinski is present Extrem Other: He is moving all his extremities normally. Course <Laverne Quintanilla MD - Last Filed: 01/23/23 18:43> Reevaluation(s) Time: 17:13 Reevaluation: I have updated the patient's caregivers on the CT findings and that we are awaiting Dr. Ruelas's consultation Time: 17:30 Reevaluation #2: Dr. Ruelas has seen and examined the patient. She will order a CT with p.o. contrast and reevaluate him after the imaging. I will be signing the patient out to Dr. Peterson. Consultations Consultation #1: Dr. Ruelas, general surgery. She will review his CT and call me back Time: 17:08 Sign Out <Laverne Quintanilla MD - Last Filed: 01/23/23 18:43> Sign Out Data: Sign Out Comment: This is a 22-year-old male with cognitive delay and cystic fibrosis who is nonverbal but who follows commands. He lives in an apartment but has full-time caregivers. He presents today with his caregivers who are concerned that he is having abdominal pain because he is clutching his abdomen and banging his head against a wall. His head CT was negative but his abdominal CT shows an enlarged appendix at 14 mm (8 mm is upper limit of normal). He has been seen by Dr. Zazueta who has ordered a repeat CT with p.o. contrast which is pending. Last updated by Laverne Quintanilla MD at 01/23/23 17:36
--- NOTE | 2023-01-23 13:15 | DI.CT_ITS ---
Exam(s) CT CHEST/ABD/PEL W EXAM: CT CHEST/ABD/PEL W CLINICAL HISTORY: nonverbal, ? chest abdominal pain. TECHNIQUE: Imaging Protocol: Axial computed tomography images with coronal and sagittal reformatted images were created and reviewed CONTRAST MATERIAL: Intravenous: Omnipaque 350 Contrast volume:98 ml Oral: no COMPARISON: No exams were available for comparison FINDINGS: CHEST: Exam limited by respiratory motion. Tracheobronchial tree: bronchial wall thickening and mild bronchiectasis seen greater in the upper l obes. Multifocal areas of mucous plugging. Pulmonary parenchyma: Bilateral tree-in-bud opacities could represent acute versus chronic infiltrate s. No consolidation or dominant measurable mass. Pleura: No effusion or pneumothorax. Lymph nodes: Within normal limits. Aorta: Thoracic portion non-dilated. Heart: Normal size. No pericardial effusion. Bones: Unremarkable for age. No lytic or blastic lesions.No compression fractures. Esophagus: Multiple esophageal varices. ABDOMEN and PELVIS: Exam somewhat limited by streak artifact secondary to patient arm position. There is also motion. Liver: Cirrhotic appearance. No measurable mass. Gallbladder and biliary tract: No evidence of stones or wall thickening. No biliary dilatation. Pancreas: Normal density, no abnormal calcifications or inflammatory process. Spleen: Enlarged. Multiple adjacent varices. Kidneys: Normal size, contour and axis. No radiodense stones or obstructive uropathy. No suspicious m asses seen. Adrenal glands: No masses seen. Aorta: Abdominal portion non-dilated. Mild atherosclerotic changes. Lymph nodes: Within normal limits. Soft tissues: Unremarkable. Bladder: Unremarkable. Bowel: No obstruction or bowel wall thickening. Appendix not definitely seen. No right lower quadra nt inflammatory changes. Normal quantity of stool. Peritoneal cavity: No ascites. No focal collection or mesenteric inflammatory response. Bones: Unremarkable for age. Reproductive organs: Within normal limits. IMPRESSION: Limited exam due to motion. Chest CT: Mild bronchiectasis and mucous plugging. Bilateral upper lobe tree-in-bud opacities could represent acute versus chronic infiltrates. Abdomen pelvis: Cirrhotic appearing liver. Esophageal varices. Splenomegaly. Evaluation of bowel somewhat limited due to lack of oral contrast and significant motion. RADIATION DOSE DELIVERED: 1,268.92mGy.cm Total DLP DATA REPOSITORY: All CT scans at this facility are submitted to the National Radiology Data Registry (NRDR) Dose Index Registry (DIR) with the [employer] ([employer]). RADIATION OPTIMIZATION: All CT scans at this facility use at least one of these dose optimization te chniques: automated exposure control; mA and/or kV adjustment per patient size (includes targeted exa ms where dose is matched to clinical indication); or iterative reconstruction.
[2023-01-23 13:47] LABS: Lactate 0.9 mmol/L (0.6-1.4)
[2023-01-23 13:52] LABS: Abs Immature Grans 0.03 10^3/uL (0.0-0.06); Absolute Basophil Count 0.06 10^3/uL (0.0-0.2); Absolute Eosinophil Count 0.13 10^3/uL (0.0-0.7); Absolute Lymphocyte Count 0.92 10^3/uL (1.2-3.4); Absolute Monocyte Count 0.54 10^3/uL (0.1-0.8); Absolute Neutrophil Count 7.51 10^3/uL (1.2-6.7); Basophils % 0.7; Eosinophils % 1.4; HCT 43.1 % (40.0-50.0); HGB 14.5 g/dL (13.5-17.5); Immature Grans % 0.3; MCHC 33.6 % (32.0-36.0); MCV 86 fL (80-95); MPV 10.2 fL (8.0-11.0); Monocytes % 5.9; Neutrophils % 81.7; Platelet Count 113 10^3/uL (130-400); RDW 13.2 % (11.8-14.1); RDW-SD 41.5 fL; WBC 9.19 10^3/uL (4.4-10.8)
[2023-01-23 13:54] LABS: Bilirubin Negative (Negative); Blood Negative (Negative); Clarity Clear (Clear); Glucose Negative (Negative); Ketones Negative (Negative); Leukocyte Esterase Negative (Negative); Nitrite Negative (Negative); Urobilinogen 0.2 mg/dL (Up to 0.2)
[2023-01-23] MEDS: Normal Saline 1,000 ML 1000 ML IV (14:04)
[2023-01-23 14:05] LABS: Lipase < 10 U/L (16-77)
[2023-01-23 14:10] LABS: Mono Screening Negative (Negative)
[2023-01-23 14:21] LABS: ALT 77 U/L (16-63); AST 46 U/L (15-37); Albumin 3.8 g/dL (3.4-5.0); Alkaline Phosphatase 352 U/L (46-116); Anion Gap 9.1 mmol/L (3-11); BUN 16 mg/dL (7-18); Bilirubin, Total 1.1 mg/dL (0.2-1.0); CO2 25.9 mmol/L (21.0-32.0); Calcium 9.3 mg/dL (8.5-10.1); Chloride 104 mmol/L (98-107); Estimated GFR 108.46 (mL/min/1.73m2); Glucose 105 mg/dL (74-106); Magnesium 2.1 mg/dL (1.8-2.4); Potassium 3.8 mmol/L (3.5-5.1); Sodium 139 mmol/L (136-145); Total Protein 8.1 g/dL (6.4-8.2)
[2023-01-23 14:26] LABS: COVID-19 PCR Negative (Negative); Influenza A PCR Negative (Negative); Influenza B PCR Negative (Negative); RSV PCR Negative (Negative)
[2023-01-23 14:27] LABS: Source Nasopharynx
[2023-01-23 14:35] LABS: PHOSPHORUS 3.8 mg/dL (2.6-4.7)
[2023-01-23] MEDS: Normal Saline - Diluent 50 ML VIAL IJ ×2 (15:19→19:19)
[2023-01-23] MEDS: Omnipaque 350 MG/ML 100 ML BTL IJ ×2 (15:19→19:19)
--- NOTE | 2023-01-23 15:22 | DI.CT_ITS ---
Exam(s) CT HEAD CERVICAL SPINE WO EXAM: CT HEAD CERVICAL SPINE WO CLINICAL HISTORY: head trauma, cognitive delay, alpha-1 antitrypsin. TECHNIQUE: Imaging Protocol: Axial computed tomography images with coronal and sagittal reformatted images were created and reviewed COMPARISON: CT CT FACIAL WO from 11/27/2022 FINDINGS: Head CT Ventricles and Extra axial spaces: Normal in size and morphology for the patient's age. Hemorrhage: None. Cerebral parenchyma: Normal. Midline shift: None. Brainstem/Cerebellum: Normal. Calvarium: Normal. Visualized Paranasal sinuses/Mastoids: Opacification of ethmoid sinuses and maxillary sinuses. Prio r sinus surgery. Soft tissues: Unremarkable. Cervical Spine CT BONES: Vertebral body heights are maintained. Alignment is normal. There is no evidence of acute frac ture. SOFT TISSUES: No paraspinal hematoma. The airway appears intact. No pneumothorax is seen at the lung apices. IMPRESSION: Head CT: No acute abnormality. C-spine CT: no acute abnormality. RADIATION DOSE DELIVERED: 1,300.64mGy.cm Total DLP DATA REPOSITORY: All CT scans at this facility are submitted to the National Radiology Data Registry (NRDR) Dose Index Registry (DIR) with the [employer] ([employer]). RADIATION OPTIMIZATION: All CT scans at this facility use at least one of these dose optimization te chniques: automated exposure control; mA and/or kV adjustment per patient size (includes targeted exa ms where dose is matched to clinical indication); or iterative reconstruction.
--- NOTE | 2023-01-23 16:54 | DI.VRAD_ITS ---
Addendum created by Clara Daniel MD on 01/23/2023 5:01:30 PM EDT: THIS REPORT CONTAINS FINDINGS THAT MAY BE CRITICAL TO PATIENT CARE. The findings were verbally communicated via telephone conference at 5:00 PM EDT on 01/23/2023 with FLAVIO CONNOR. The findings were acknowledged and understood. Initial report created on 01/23/2023 4:54:02 PM EDT: PROCEDURE INFORMATION: Exam: CT Chest With Contrast; Diagnostic Exam date and time: 01/23/2023 3:25 PM Age: 22 years old Clinical indication: Other: Trauma chest/abdominal pain TECHNIQUE: Imaging protocol: Diagnostic computed tomography of the chest with contrast. 3D rendering (Not supervised by radiologist): MIP and/or 3D reconstructed images were created by the technologist. Total images: 2679 Radiation optimization: All CT scans at this facility use at least one of these dose optimization techniques: automated exposure control; mA and/or kV adjustment per patient size (includes targeted exams where dose is matched to clinical indication); or iterative reconstruction. Contrast material: OMNIPAQUE 350; Contrast volume: 98 ml; Contrast route: INTRAVENOUS (IV); COMPARISON: CT HEAD CERVICAL SPINE WO 01/23/2023 3:18 PM FINDINGS: Lungs: There is bilateral moderate to severe diffuse bilateral upper lobe predominant peribronchial thickening, with mild bilateral upper lobe predominant cylindrical bronchiectasis and multiple tree-in-bud opacities suggesting small airways mucoid impaction and/or infection, probably representing cystic fibrosis. The differential includes allergic bronchopulmonary aspergillosis, ciliary dyskinesia, etcetera. There is no acute focal consolidation. No suspicious masses. Pleural spaces: No pleural effusion or pneumothorax. Heart: Unremarkable. No cardiomegaly. No pericardial effusion. Mediastinal space: There is normal residual thymus in the anterior mediastinum. Lymph nodes: Unremarkable. No enlarged lymph nodes. Vasculature: Unremarkable. No aortic aneurysm. Bones/joints: Unremarkable. No acute fracture. Soft tissues: Unremarkable. IMPRESSION: 1. Constitution of findings in the lungs most consistent with cystic fibrosis. The differential includes allergic bronchopulmonary aspergillosis, ciliary dyskinesia, etcetera. 2. There is no acute focal consolidation. PROCEDURE INFORMATION: Exam: CT Abdomen And Pelvis With Contrast Exam date and time: 01/23/2023 3:25 PM Age: 22 years old Clinical indication: Other: Trauma chest/abdominal pain TECHNIQUE: Imaging protocol: Computed tomography of the abdomen and pelvis with contrast. 3D rendering (Not supervised by radiologist): MIP and/or 3D reconstructed images were created by the technologist. Radiation optimization: All CT scans at this facility use at least one of these dose optimization techniques: automated exposure control; mA and/or kV adjustment per patient size (includes targeted exams where dose is matched to clinical indication); or iterative reconstruction. COMPARISON: US ABDOMEN 10/22/2022 8:39 AM FINDINGS: Mediastinal space: There are paraesophageal, perigastric and splenic hilar varices. Liver: The liver is somewhat small measuring approximately 12 cm in length in the right midclavicular line, with microlobular borders consistent with cirrhosis. No masses. Gallbladder and bile ducts: Gallbladder is contracted. Bile ducts appear normal. Pancreas: Apparent partial fatty replacement of the pancreas. No masses in the region. No pancreatitis. No lacerations visualized. Spleen: The spleen is prominent measuring up to 15.5 x 5.7 x 15.4 cm, which along with varices suggests portal hypertension. No masses, lacerations or infarctions. Adrenal glands: Normal. No mass. Kidneys and ureters: Kidneys appear normal with no pyelonephritis, masses or stones. There are no right or left ureteral stones or hydronephrosis. Stomach and bowel: Stomach, small bowel loops and colon demonstrate a nonobstructive bowel gas pattern. No visible acute bowel injury. No visible intussusception. There is apparent mild wall thickening throughout the colon which is probably due to cystic fibrosis but colitis or lymphedema are not excluded. There is difficulty distinguishing the terminal ileum from the appendix without oral contrast. See discussion in appendix below. Appendix: There is a prominent apparently blind ending bowel structure in the right lower quadrant seen best on series 5, image 36 and series 4, image 94 measuring up to 14 mm, which may represent a dilated appendix, often associated with cystic fibrosis. However, appendicitis is not excluded, and clinical correlation is needed. Ultrasound follow-up or post oral contrast CT follow-up may be helpful. Intraperitoneal space: Mild mesenteric fat stranding, nonspecific. Vasculature: See Mediastinal space finding. Lymph nodes: No lymphadenopathy. Urinary bladder: Unremarkable as visualized. Reproductive: Unremarkable as visualized. Bones/joints: Unremarkable. No acute fracture. Soft tissues: Unremarkable. IMPRESSION: 1. Prominent apparently blind ending bowel structure in the right lower quadrant which may represent a dilated appendix, often associated with cystic fibrosis. However, appendicitis is not excluded, and clinical correlation is needed. Ultrasound follow-up or post oral contrast CT follow-up may be helpful. 2. No visible acute solid organ injury or bowel injury. 3. Cirrhosis and splenomegaly with fatty infiltration of the pancreas, colonic wall thickening and prominent appendix, altogether along with lung findings suggesting cystic fibrosis. See body of report for detail. 4. Paraesophageal, perigastric and splenic hilar varices. 5. Small liver measuring approximately 12 cm in length in the right midclavicular line, with microlobular borders consistent with cirrhosis. 6. The spleen is prominent measuring up to 15.5 x 5.7 x 15.4 cm, which along with varices suggests portal hypertension. 7. Apparent mild wall thickening throughout the colon which is probably due to cystic fibrosis but colitis or lymphedema are not excluded. 8. Apparent partial fatty replacement of the pancreas, associated with cystic fibrosis. No masses in the region. No pancreatitis. Dictated and Authenticated by: Clara Daniel MD. Ordering:MADISON Galloway MD
[2023-01-23 17:54] LABS: C-Reactive Protein 0.45 mg/dL (0.0-0.3)
[2023-01-23 18:14] LABS: Procalcitonin < 0.1 ng/mL
--- NOTE | 2023-01-23 19:16 | W.SURGCON ---
Date of service: 01/23/23 Time of Service: 19:16 Assessment and Plan Assessment and plan (1) Abdominal pain: Status: Acute Assessment and plan: Labs and CT scan reviewed. No specific signs of acute appendicitis and a large stool burden is noted. -Will repeat CT with oral contrast and order repeat white count, CRP and Pro-Ta -Patient is high risk for surgery due to his chronic pulmonary conditions. -Patient also has very advanced cirrhosis, may be due to his cystic fibrosis versus other unknown etiologies. Further recommendations to follow 90 mins spent with the patient today. (2) Developmental non-verbal disorder: Status: Acute (3) Bipolar disorder, unspecified: Status: Acute Qualifiers: Active/Remission status: remission status unspecified Qualified Code(s): F31.9 - Bipolar disorder, unspecified (4) Seizure disorder: Status: Chronic (5) Cystic fibrosis: Status: None (6) Autism: Status: None (7) Iemwb-[id number] deficiency: Status: Chronic (8) Learning problem: History of Present Illness Narrative: Patient is a 22-year-old male with a history of autism, cystic fibrosis, seizures. He is nonverbal. He was brought in today by his caregivers because he is grabbing his abdomen and rocking back and forth. History is taken from the caregivers as the patient cannot give any history. They say he normally does not exhibit these type of behaviors. He did eat breakfast lunch and a snack quite heartily. He has had no vomiting. I do not think he has had any fevers. Nobody knows when the last time was he had a bowel movement. They do not know if he has had GI problems in the past. They do not know if he has had any abdominal surgeries in the past. They cannot give me any more information than what is in the computer. Patient is sitting in bed comfortably and rocking back and forth. His mother is his legal guardian. He does live in a intermediate. Review of Systems Unobtainable due to mental condition [facility] All Active Problems (Updated 01/23/23 @ 20:07 by Neli Ruelas DO) Developmental non-verbal disorder (Acute) Abdominal pain (Acute) Well adult health check (Acute) Bipolar disorder, unspecified (Acute) Psychiatry evaluation at [facility] -01/17/2021 Seizure disorder (Chronic) Wsvwt-[id number] deficiency (Chronic) Medical History Pdxar-[id number] deficiency Learning problem Surgical History splinter removal Family History Mother Hyperlipidemia Sister Asthma Grandparent Essential hypertension Heart disease Hyperlipidemia Social History Smoking/Tobacco Use Status: Never Smoking risk assessment performed?: Yes Alcohol Intake: never Drug use: Never Substance use type: does not use Household members: family Housing: apartment Pets and animals: Yes (1 dog at mom's, 1 dog at dad's and outdoor cats) Pets and animals: cat(s) and dog(s) Do you feel safe at home: Yes Do you feel safe in your relationship?: Yes Exam Narrative Exam Narrative: PHYSICAL EXAM GENERAL APPEARANCE:in no acute distress HYDRATION: Well hydrated HEAD, EYES, EARS, NECK, THROAT: Head is normocephalic, pupils equal, round, reactive to light and accommodation, ocular movement intact, sclera clear and no jaundice. ? LUNGS: normal respiration/normal chest excursion. ?Clear to auscultation bilaterally. ?No wheeze. ?HEART: Regular rate and rhythm. no murmurs ABDOMEN: soft and non-tender to palpation.? Normal bowel sounds.? No hernias.? When I do the palp palpation of the right lower quadrant patient shows no grimacing or localization of abdominal pain. Same 2 the left lower quadrant. He has some mild pain in the upper abdomen with palpation-he does grimace and try to remove my hand.. He does not appear to have any distention or diffuse abdominal pain. Results Last Vital Signs Temp 36.8 C 01/23/23 13:03 Pulse 75 01/23/23 17:00 Resp 18 01/23/23 13:03 BP 128/89 01/23/23 17:00 Pulse Ox 96 01/23/23 17:01 Labs 01/23/23 13:38 01/23/23 13:38 Labs: Laboratory Results - last 24 hr 01/23/23 01/23/23 01/23/23 13:38 13:38 13:38 WBC RBC Hgb Hct MCV MCH MCHC RDW Plt Count MPV Immature Gran % Neutrophils % Lymphocytes % Monocytes % Eosinophils % Basophils % Nucleated RBC % Absolute Neutrophils Absolute Lymphocytes Absolute Monocytes Absolute Eosinophils Absolute Basophils VBG Lactate 0.9 Sodium 139 Potassium 3.8 Chloride 104 Carbon Dioxide 25.9 Anion Gap 9.1 BUN 16 Creatinine 1.0 Est GFR (CKD-EPI 2020) 108.46 Glucose 105 Calcium 9.3 Phosphorus 3.8 Magnesium 2.1 Total Bilirubin 1.1 H AST 46 H ALT 77 H Alkaline Phosphatase 352 H C-Reactive Protein Total Protein 8.1 Albumin 3.8 Lipase < 10 L Procalcitonin Urine Color Urine Clarity Urine pH Ur Specific Marsing Urine Protein Urine Ketones Urine Blood Urine Nitrite Urine Bilirubin Urine Urobilinogen Ur Leukocyte Esterase Urine Glucose COVID-19 Source SARS-CoV-2 (PCR) Monoscreen Influenza Type A (PCR) Influenza Type B (PCR) RSV (PCR) 01/23/23 01/23/23 01/23/23 13:38 13:38 13:45 WBC 9.19 RBC 5.00 Hgb 14.5 Hct 43.1 MCV 86 MCH 29.0 MCHC 33.6 RDW 13.2 Plt Count 113 L MPV 10.2 Immature Gran % 0.3 Neutrophils % 81.7 Lymphocytes % 10.0 Monocytes % 5.9 Eosinophils % 1.4 Basophils % 0.7 Nucleated RBC % 0.0 Absolute Neutrophils 7.51 H Absolute Lymphocytes 0.92 L Absolute Monocytes 0.54 Absolute Eosinophils 0.13 Absolute Basophils 0.06 VBG Lactate Sodium Potassium Chloride Carbon Dioxide Anion Gap BUN Creatinine Est GFR (CKD-EPI 2020) Glucose Calcium Phosphorus Magnesium Total Bilirubin AST ALT Alkaline Phosphatase C-Reactive Protein Total Protein Albumin Lipase Procalcitonin Urine Color Urine Clarity Urine pH Ur Specific Marsing Urine Protein Urine Ketones Urine Blood Urine Nitrite Urine Bilirubin Urine Urobilinogen Ur Leukocyte Esterase Urine Glucose COVID-19 Source Nasopharynx SARS-CoV-2 (PCR) Negative Monoscreen Negative Influenza Type A (PCR) Negative Influenza Type B (PCR) Negative RSV (PCR) Negative 01/23/23 01/23/23 01/23/23 13:45 17:37 17:37 WBC RBC Hgb Hct MCV MCH MCHC RDW Plt Count MPV Immature Gran % Neutrophils % Lymphocytes % Monocytes % Eosinophils % Basophils % Nucleated RBC % Absolute Neutrophils Absolute Lymphocytes Absolute Monocytes Absolute Eosinophils Absolute Basophils VBG Lactate Sodium Potassium Chloride Carbon Dioxide Anion Gap BUN Creatinine Est GFR (CKD-EPI 2020) Glucose Calcium Phosphorus Magnesium Total Bilirubin AST ALT Alkaline Phosphatase C-Reactive Protein 0.45 H Total Protein Albumin Lipase Procalcitonin < 0.1 Urine Color Yellow Urine Clarity Clear Urine pH 6.0 Ur Specific Marsing 1.010 Urine Protein Negative Urine Ketones Negative Urine Blood Negative Urine Nitrite Negative Urine Bilirubin Negative Urine Urobilinogen 0.2 Ur Leukocyte Esterase Negative Urine Glucose Negative COVID-19 Source SARS-CoV-2 (PCR) Monoscreen Influenza Type A (PCR) Influenza Type B (PCR) RSV (PCR)
--- NOTE | 2023-01-23 20:00 | DI.CT_ITS ---
Exam(s) CT PELVIC WO EXAM: CT PELVIC WO CLINICAL HISTORY: wait 1.5 hrs, start high to get appendix. TECHNIQUE: Imaging Protocol: Axial computed tomography images with coronal and sagittal reformatted images were created and reviewed. CONTRAST MATERIAL: Oral: yes / COMPARISON: CT CT ABDOMEN PELVIS W from 01/23/2023 FINDINGS: Exam is again limited by motion. Bladder: Filled with IV contrast. No gross wall thickening. Bowel: Distended appendix extending transversely across the midline. Again findings suggestive of so me intussusception at the base of the appendix in the cecum. No definite surrounding inflammation. No obstruction or bowel wall thickening. Moderate to increased quantity of stool. Peritoneal cavity: No ascites, collection or mesenteric inflammatory response. Reproductive: Unremarkable. Bones: No fracture. Soft tissues: Unremarkable. IMPRESSION: Distended appendix again demonstrated. Question of intussusception at the base. No definite surroun ding inflammatory changes. Surgical consult recommended. RADIATION DOSE DELIVERED: 381.04mGy.cmTotal DLP DATA REPOSITORY: All CT scans at this facility are submitted to the National Radiology Data Registry (NRDR) Dose Index Registry (DIR) with the [employer] ([employer]). RADIATION OPTIMIZATION: All CT scans at this facility use at least one of these dose optimization te chniques: automated exposure control; mA and/or kV adjustment per patient size (includes targeted exa ms where dose is matched to clinical indication); or iterative reconstruction.
--- NOTE | 2023-01-23 20:24 | DI.VRAD_ITS ---
Addendum created by Clara Daniel MD on 01/23/2023 8:40:51 PM EDT: THIS REPORT CONTAINS FINDINGS THAT MAY BE CRITICAL TO PATIENT CARE. The findings were verbally communicated via telephone conference at 8:40 PM EDT on 01/23/[address] Wood. The findings were acknowledged and understood. Initial report created on 01/23/2023 8:24:03 PM EDT: PROCEDURE INFORMATION: Exam: CT Abdomen And Pelvis With Contrast Exam date and time: 01/23/2023 7:28 PM Age: 22 years old Clinical indication: Abdominal pain; Acute; Additional info: R/O appendicitis TECHNIQUE: Imaging protocol: Computed tomography of the abdomen and pelvis with contrast. Total images: 1206 Contrast material: OMNI 350; Contrast volume: 82 ml; Contrast route: INTRAVENOUS (IV); Other contrast: Oral, [id number], 50; COMPARISON: CT CHEST/ABD/PEL W 01/23/2023 3:25 PM FINDINGS: Lungs: Lung bases demonstrate bronchiectasis with tree-in-bud opacities most consistent with cystic fibrosis. Mediastinal space: There are paraesophageal, perigastric and splenic hilar varices. Liver: The liver is somewhat small measuring approximately 12 cm in length in the right midclavicular line, with microlobular borders consistent with cirrhosis. No masses. Gallbladder and bile ducts: Gallbladder is contracted. Bile ducts appear normal. Pancreas: Fatty infiltration of the pancreas. No masses. No pancreatitis. Spleen: The spleen is prominent measuring up to 15.5 x 5.7 x 15.4 cm, which along with varices suggests portal hypertension. No masses or infarctions. Adrenal glands: Normal. No mass. Kidneys and ureters: Kidneys appear normal with no pyelonephritis, masses or stones. There are no right or left ureteral stones or hydronephrosis. Stomach and bowel: Stomach, small bowel loops and colon demonstrate a nonobstructive bowel gas pattern. No visible acute bowel injury. No visible intussusception. Appendix: The appendix is prominent measuring up to 23 mm proximally and 17 mm distally. There is wall thickening versus mucoid impaction within the appendix particularly proximally, with luminal narrowing. There appears to be short-segment appendiceal intussusception into the cecum measuring approximately 2.5 cm in length. There is no periappendiceal fat stranding or fluid. Intraperitoneal space: Mild mesenteric fat stranding, nonspecific. Vasculature: Aortoiliac vasculature appears normal. Varices as discussed above. Lymph nodes: There is apparent mild wall thickening throughout the colon which is probably due to cystic fibrosis but colitis or lymphedema are not excluded. No lymphadenopathy. Urinary bladder: Unremarkable as visualized. Reproductive: Unremarkable as visualized. Bones/joints: Unremarkable. No acute fracture. Soft tissues: Unremarkable. Other findings: No visible abscess. IMPRESSION: 1. Cirrhosis and splenomegaly with varices, fatty infiltration of the pancreas, colonic wall thickening and prominent appendix, altogether along with lung findings most consistent with cystic fibrosis. 2. Appendix is slightly more dilated than on the previous scan and there appears to be developing wall thickening or mucoid impaction proximally, with associated short-segment intussusception of the appendix into the cecum; findings are suspicious for associated acute appendicitis. Recommend surgical consultation. Dictated and Authenticated by: Clara Daniel MD. Ordering:MILAD Quinteros MD
--- NOTE | 2023-01-23 22:04 | HPE_ITS ---
Date of service: 01/23/23 Time of Service: 22:04 Assessment and Plan Assessment and plan (1) Developmental non-verbal disorder: Status: Acute (2) Abdominal pain: Status: Acute Assessment and plan: Patient came to the ER today complaining of abdominal pain. Repeat CT with oral contrast see results in [facility]. Possible thickened appendix. I spoke with the ER doc at 01/23 10:06 PM. Patient's abdomen is benign. He has no fever. He procalcitonin was negative. Because of the possibility of appendicitis and/or intussusception we will keep patient in the hospital overnight and see how he is feeling in the morning. Repeat labs in a.m. Hold antibiotics at this point The patient does need to move his bowels. (3) Bipolar disorder, unspecified: Status: Acute Qualifiers: Active/Remission status: remission status unspecified Qualified Code(s): F31.9 - Bipolar disorder, unspecified (4) Seizure disorder: Status: Chronic (5) Cystic fibrosis: Status: None (6) Autism: Status: None (7) [id number] deficiency: Status: Chronic (8) Learning problem: (9) Constipation: Status: Acute History of Present Illness Narrative: See surgical consult from 01/23 [facility] All Active Problems (Updated 01/23/23 @ 22:05 by Neli Ruelas DO) Constipation (Acute) Developmental non-verbal disorder (Acute) Abdominal pain (Acute) Well adult health check (Acute) Bipolar disorder, unspecified (Acute) Psychiatry evaluation at [facility] -01/17/2021 Seizure disorder (Chronic) Crydt-2-odewphjfhqo deficiency (Chronic) Medical History Xfznh-[id number] deficiency Learning problem Surgical History splinter removal Family History Mother Hyperlipidemia Sister Asthma Grandparent Essential hypertension Heart disease Hyperlipidemia Social History Smoking/Tobacco Use Status: Never Smoking risk assessment performed?: Yes Alcohol Intake: never Drug use: Never Substance use type: does not use Household members: family Housing: apartment Pets and animals: Yes (1 dog at mom's, 1 dog at dad's and outdoor cats) Pets and animals: cat(s) and dog(s) Do you feel safe at home: Yes Do you feel safe in your relationship?: Yes Meds Allergies and Home Medications Allergies Allergy/AdvReac Type Severity Reaction Status Date / Time amoxicillin Allergy Intermediate RASH Verified 11/27/22 10:27 levetiracetam [From Keppra] Allergy Unknown aggression Verified 11/27/22 10:27 ciprofloxacin [From Cipro] Allergy Unverified 01/23/23 22:01 clobazam Allergy Unverified 01/23/23 22:01 lamotrigine Allergy Unverified 01/23/23 22:01 elexacaftor [From Trikafta] AdvReac Severe Verified 11/27/22 10:27 ivacaftor [From Symdeko] AdvReac Severe Verified 11/27/22 10:27 tezacaftor [From Symdeko] AdvReac Severe Verified 11/27/22 10:27 Benzodiazepines AdvReac Intermediate Verified 11/27/22 10:27 latex AdvReac Unknown RASH Verified 11/27/22 10:27 montelukast [From Singulair] AdvReac Behavioral Verified 11/27/22 10:27 side effects Home Medications Medication Instructions Recorded Confirmed Type levalbuterol tartrate 45 2 puff inhalation BID 12/02/12 09/13/22 History mcg/actuation aerosol inhaler (Xopenex HFA) multivitamin (Daily Multi-Vitamin 1 ea PO DAILY 01/05/16 09/13/22 History tablet) lactobacillus combination no.8 3 3,000 mmu cells PO DAILY 12/02/18 09/13/22 History billion cell capsule (Adult Probiotic) acetylcysteine 600 mg capsule (NAC) 600 mg PO BID 08/02/21 09/13/22 History benztropine 0.5 mg tablet 0.5 mg PO BID Swallowing 08/02/21 09/13/22 History cannabidiol 100 mg/mL oral 400 mg PO BID 08/02/21 09/13/22 History solution (Epidiolex) cholecalciferol (vitamin D3) 125 125 mcg PO DAILY 08/02/21 09/13/22 History mcg (5,000 unit) capsule dornase kathryn 1 mg/mL solution for 2.5 mg inhalation DAILY 08/02/21 09/13/22 History inhalation (Pulmozyme) esomeprazole magnesium 40 mg 40 mg PO DAILY 08/02/21 09/13/22 History capsule,delayed release hawthorn extract 150 mg capsule 300 mg PO BID 08/02/21 09/13/22 History hydroxyzine HCl 50 mg tablet 50 mg PO QHS 08/02/21 09/13/22 History iodine strong (Lugols) 5 % oral 2 drp PO .COMPLEX 08/02/21 09/13/22 History solution lipase 21,000-protease 5 cap PO TID 08/02/21 09/13/22 History 54,700-amylase 83,900 unit capsule,delayed rel (Pancreaze) melatonin 5 mg chewable tablet 10 mg PO HS PRN 08/02/21 09/13/22 History omega-3 900 mg-dha 320 mg-epa 580 2 cap PO BID 08/02/21 09/13/22 History mg-fish oil 1,360 mg capsule (Fish Oil) sodium chloride 0.9 % nasal spray 2 spray intranasal BID 08/02/21 09/13/22 History aerosol (Nasal Mist) trazodone 50 mg tablet 50 mg PO QHS 08/02/21 09/13/22 History ursodiol 300 mg capsule 300 mg PO BID 08/02/21 09/13/22 History zonisamide 100 mg capsule 300 mg PO DAILY 08/02/21 09/13/22 History aripiprazole 5 mg tablet (Abilify) 5 mg PO DAILY #90 tabs 12/13/21 09/13/22 Rx cholecalciferol (vit D3) 1,000 5 tab PO DAILY 02/19/22 09/13/22 History unit-vitamin K2 (MK4) 100 mcg tablet dornase kathryn 1 mg/mL solution for 2.5 mg inhalation DAILY 02/19/22 09/13/22 History inhalation (Pulmozyme) magnesium glycinate 200 mg PO BID 02/19/22 09/13/22 History naltrexone 50 mg tablet 4.5 mg PO HS 02/19/22 09/13/22 History tobramycin with nebulizer 300 mg/5 300 mg inhalation BID 02/19/22 09/13/22 History mL solution for nebulization lacosamide 200 mg tablet 200 mg BID 01/23/23 01/23/23 History midazolam 5 mg/2.5 mL oral syringe 2.5 mg 01/23/23 History (FOR ORAL USE ONLY) Results Labs 01/23/23 13:38 01/23/23 13:38 Labs: Laboratory Results - last 24 hr 01/23/23 01/23/23 01/23/23 13:38 13:38 13:38 WBC RBC Hgb Hct MCV MCH MCHC RDW Plt Count MPV Immature Gran % Neutrophils % Lymphocytes % Monocytes % Eosinophils % Basophils % Nucleated RBC % Absolute Neutrophils Absolute Lymphocytes Absolute Monocytes Absolute Eosinophils Absolute Basophils VBG Lactate 0.9 Sodium 139 Potassium 3.8 Chloride 104 Carbon Dioxide 25.9 Anion Gap 9.1 BUN 16 Creatinine 1.0 Est GFR (CKD-EPI 2020) 108.46 Glucose 105 Calcium 9.3 Phosphorus 3.8 Magnesium 2.1 Total Bilirubin 1.1 H AST 46 H ALT 77 H Alkaline Phosphatase 352 H C-Reactive Protein Total Protein 8.1 Albumin 3.8 Lipase < 10 L Procalcitonin Urine Color Urine Clarity Urine pH Ur Specific [place] Urine Protein Urine Ketones Urine Blood Urine Nitrite Urine Bilirubin Urine Urobilinogen Ur Leukocyte Esterase Urine Glucose COVID-19 Source SARS-CoV-2 (PCR) Monoscreen Influenza Type A (PCR) Influenza Type B (PCR) RSV (PCR) Add-On Test Request 01/23/23 01/23/23 01/23/23 13:38 13:38 13:45 WBC 9.19 RBC 5.00 Hgb 14.5 Hct 43.1 MCV 86 MCH 29.0 MCHC 33.6 RDW 13.2 Plt Count 113 L MPV 10.2 Immature Gran % 0.3 Neutrophils % 81.7 Lymphocytes % 10.0 Monocytes % 5.9 Eosinophils % 1.4 Basophils % 0.7 Nucleated RBC % 0.0 Absolute Neutrophils 7.51 H Absolute Lymphocytes 0.92 L Absolute Monocytes 0.54 Absolute Eosinophils 0.13 Absolute Basophils 0.06 VBG Lactate Sodium Potassium Chloride Carbon Dioxide Anion Gap BUN Creatinine Est GFR (CKD-EPI 2020) Glucose Calcium Phosphorus Magnesium Total Bilirubin AST ALT Alkaline Phosphatase C-Reactive Protein Total Protein Albumin Lipase Procalcitonin Urine Color Urine Clarity Urine pH Ur Specific [place] Urine Protein Urine Ketones Urine Blood Urine Nitrite Urine Bilirubin Urine Urobilinogen Ur Leukocyte Esterase Urine Glucose COVID-19 Source Nasopharynx SARS-CoV-2 (PCR) Negative Monoscreen Negative Influenza Type A (PCR) Negative Influenza Type B (PCR) Negative RSV (PCR) Negative Add-On Test Request 01/23/23 01/23/23 01/23/23 13:45 17:37 17:37 WBC RBC Hgb Hct MCV MCH MCHC RDW Plt Count MPV Immature Gran % Neutrophils % Lymphocytes % Monocytes % Eosinophils % Basophils % Nucleated RBC % Absolute Neutrophils Absolute Lymphocytes Absolute Monocytes Absolute Eosinophils Absolute Basophils VBG Lactate Sodium Potassium Chloride Carbon Dioxide Anion Gap BUN Creatinine Est GFR (CKD-EPI 2020) Glucose Calcium Phosphorus Magnesium Total Bilirubin AST ALT Alkaline Phosphatase C-Reactive Protein 0.45 H Total Protein Albumin Lipase Procalcitonin < 0.1 Urine Color Yellow Urine Clarity Clear Urine pH 6.0 Ur Specific [place] 1.010 Urine Protein Negative Urine Ketones Negative Urine Blood Negative Urine Nitrite Negative Urine Bilirubin Negative Urine Urobilinogen 0.2 Ur Leukocyte Esterase Negative Urine Glucose Negative COVID-19 Source SARS-CoV-2 (PCR) Monoscreen Influenza Type A (PCR) Influenza Type B (PCR) RSV (PCR) Add-On Test Request 01/23/23 Unknown WBC RBC Hgb Hct MCV MCH MCHC RDW Plt Count MPV Immature Gran % Neutrophils % Lymphocytes % Monocytes % Eosinophils % Basophils % Nucleated RBC % Absolute Neutrophils Absolute Lymphocytes Absolute Monocytes Absolute Eosinophils Absolute Basophils VBG Lactate Sodium Potassium Chloride Carbon Dioxide Anion Gap BUN Creatinine Est GFR (CKD-EPI 2020) Glucose Calcium Phosphorus Magnesium Total Bilirubin AST ALT Alkaline Phosphatase C-Reactive Protein Total Protein Albumin Lipase Procalcitonin Urine Color Urine Clarity Urine pH Ur Specific [place] Urine Protein Urine Ketones Urine Blood Urine Nitrite Urine Bilirubin Urine Urobilinogen Ur Leukocyte Esterase Urine Glucose COVID-19 Source SARS-CoV-2 (PCR) Monoscreen Influenza Type A (PCR) Influenza Type B (PCR) RSV (PCR) Add-On Test Request TNP Last Vital Signs Temp 36.8 C 01/23/23 13:03 Pulse 66 01/23/23 19:01 Resp 18 01/23/23 13:03 BP 131/77 01/23/23 19:01 Pulse Ox 96 01/23/23 19:16 Time Spent Time spent with Patient: 55-74 minutes Time was spent: preparing to see the patient(eg.review tests), ordering medications,tests, procedures, referring, communicating with other health healthcare network pricing consultant, indepentently interpreting results and care coordination
--- NOTE | 2023-01-23 22:32 | DI.VRAD_ITS ---
Addendum created by Alesia Lewis MD on 01/23/2023 10:32:52 PM EDT: Correction of a typographical error in the impression as follows: IMPRESSION: No change since recent imaging of the appendix. Given a history of cystic fibrosis on previous reports, favor this is dysmotility related. Please correlate with the clinical picture. Initial report created on 01/23/2023 10:32:19 PM EDT: PROCEDURE INFORMATION: Exam: CT Pelvis Without Contrast Exam date and time: 01/23/2023 21:40 Age: 22 years old Clinical indication: Other: Pain; Additional info: ED provider aware of vrad report/result from CT abdomen/pelvis from a few hours ago (second scan done today but with oral as well as iv contrast to better visualize appendix) describing appendix and suggesting surgical consult. Provider requested we wait 1.5 hrs for contrast to keep moving through bowel and do a 3rd CT of pelvis only to better visualze appendix. TECHNIQUE: Imaging protocol: Computed tomography of the pelvis without contrast. COMPARISON: CT ABDOMEN PELVIS W 01/23/2023 19:28 FINDINGS: Spleen: Splenomegaly partially seen. Stomach and bowel: Moderate stool burden in visualized colon similar to prior. Small bowel feces sign in distal small bowel can be seen in dysmotility. No obstruction. Appendix: As on the recent study the appendix is enlarged to 70 cm in diameter and 8 cm in length containing small bowel feces sign at the base. There is however no wall thickening or surrounding edema and morphology is similar overall to the previous study. As on the previous study distinction between the cecum and appendiceal base is challenging, difficult to tell if there is some intussusception of the appendix into the cecum or if the appendix base is stool-filled. Intraperitoneal space: No free air. No significant fluid collection. Lymph nodes: No enlarged lymph nodes. Urinary bladder: Contrast in the urinary bladder without significant wall thickening. Reproductive: Normal as visualized. Bones/joints: No acute fracture. No dislocation. Soft tissues: No suspicious lesions. IMPRESSION: No change since recent imaging in a thickened appendix. Given a history of cystic fibrosis on previous reports, favor this is dysmotility related. Please correlate with the clinical picture. Dictated and Authenticated by: Alesia Lewis MD. Ordering:LETHA Lilly MD
[2023-01-23 22:36] LABS: Abs Immature Grans 0.01 10^3/uL (0.0-0.06); Absolute Basophil Count 0.05 10^3/uL (0.0-0.2); Absolute Eosinophil Count 0.13 10^3/uL (0.0-0.7); Absolute Lymphocyte Count 1.16 10^3/uL (1.2-3.4); Absolute Monocyte Count 0.37 10^3/uL (0.1-0.8); Absolute Neutrophil Count 2.75 10^3/uL (1.2-6.7); Basophils % 1.1; Eosinophils % 2.9; HCT 38.5 % (40.0-50.0); Immature Grans % 0.2; MCHC 33.8 % (32.0-36.0); MCV 86 fL (80-95); MPV 9.8 fL (8.0-11.0); Monocytes % 8.3; Neutrophils % 61.5; RBC 4.48 10^6/uL (4.36-5.78); RDW 13.1 % (11.8-14.1); RDW-SD 41.1 fL; WBC 4.47 10^3/uL (4.4-10.8)
[2023-01-23 22:41] LABS: Platelet Count 90 10^3/uL (130-400)
[2023-01-23] MEDS: Enoxaparin 40 MG/0.4 ML SYR SC (23:54)
[2023-01-24] MEDS: Lactated Ringers 1,000 ML 75 ML IV (01:13)
[2023-01-24] MEDS: Esomeprazole 40 MG CAPCR PO (07:20)
[2023-01-24 07:43] LABS: Abs Immature Grans 0.01 10^3/uL (0.0-0.06); Absolute Basophil Count 0.02 10^3/uL (0.0-0.2); Absolute Eosinophil Count 0.11 10^3/uL (0.0-0.7); Absolute Monocyte Count 0.38 10^3/uL (0.1-0.8); Basophils % 0.5; Eosinophils % 2.6; HCT 41.3 % (40.0-50.0); HGB 13.7 g/dL (13.5-17.5); Immature Grans % 0.2; Lymphocytes % 26.1; MCH 28.7 pg (27.0-33.0); MCHC 33.2 % (32.0-36.0); MCV 87 fL (80-95); MPV 10.6 fL (8.0-11.0); Neutrophils % 61.6; RBC 4.77 10^6/uL (4.36-5.78); RDW 13.3 % (11.8-14.1); RDW-SD 42.2 fL; WBC 4.22 10^3/uL (4.4-10.8)
[2023-01-24 07:46] VITALS: BP 121/52; PULSE 62; RESP 19; TEMP 36.5; O2SAT 96
[2023-01-24 07:59] LABS: C-Reactive Protein 0.52 mg/dL (0.0-0.3)
[2023-01-24] MEDS: Acetylcysteine 600 MG CAP PO (08:09)
[2023-01-24] MEDS: ARIPiprazole 5 MG TAB PO (08:09)
[2023-01-24] MEDS: Enoxaparin 40 MG/0.4 ML SYR SC (08:10)
[2023-01-24 08:17] LABS: Diff Comment Diff Reviewed; Platelet Count 99 10^3/uL (130-400); RBC Morphology Normal
--- NOTE | 2023-01-24 09:16 | PGE_ITS ---
Date of Service Date of service: 01/24/23 Time of Service: 09:16 Assessment and Plan Assessment and plan (1) Obstipation: Status: Acute Assessment and plan: I will order the patient breakfast If he tolerates this without any problems he will be discharged home Same medications If he does not have a bowel movement every 48 hours then he should get a dose of MiraLAX. (2) Abdominal pain in male: Status: Acute (3) Constipation: Status: Acute (4) Developmental non-verbal disorder: Status: Acute (5) Well adult health check: Status: Acute (6) Bipolar disorder, unspecified: Status: Acute Qualifiers: Active/Remission status: remission status unspecified Qualified Code(s): F31.9 - Bipolar disorder, unspecified (7) Seizure disorder: Status: Chronic (8) Cystic fibrosis: Status: None (9) Autism: Status: None (10) Phbvq-0-[id number] deficiency: Status: Chronic Subjective Subjective Interval history since last seen: Patient had a large formed bowel movement last night with no blood. Caregivers today notes that he has not been clutching his abdomen or rocking as he was last night. He said no fevers overnight. His caregiver says he is acting hungry. He has been urinating without problems. He has no cough. He has not had any vomiting. Exam GI Other: Abdomen is soft and nontender with good bowel sounds. He has no pain at McBurney's point. Objective Last Vital Signs Temp 36.5 C 01/24/23 07:46 Pulse 62 01/24/23 07:46 Resp 19 01/24/23 07:46 BP 121/52 L 01/24/23 07:46 Pulse Ox 96 01/24/23 07:46 Laboratory Results - last 24 hr 01/23/23 01/23/23 01/23/23 13:38 13:38 13:38 WBC RBC Hgb Hct MCV MCH MCHC RDW Plt Count MPV Immature Gran % Neutrophils % Lymphocytes % Monocytes % Eosinophils % Basophils % Nucleated RBC % Absolute Neutrophils Absolute Lymphocytes Absolute Monocytes Absolute Eosinophils Absolute Basophils RBC Morphology VBG Lactate 0.9 Sodium 139 Potassium 3.8 Chloride 104 Carbon Dioxide 25.9 Anion Gap 9.1 BUN 16 Creatinine 1.0 Est GFR (CKD-EPI 2020) 108.46 Glucose 105 Calcium 9.3 Phosphorus 3.8 Magnesium 2.1 Total Bilirubin 1.1 H AST 46 H ALT 77 H Alkaline Phosphatase 352 H C-Reactive Protein Total Protein 8.1 Albumin 3.8 Lipase < 10 L Procalcitonin Urine Color Urine Clarity Urine pH Ur Specific [place] Urine Protein Urine Ketones Urine Blood Urine Nitrite Urine Bilirubin Urine Urobilinogen Ur Leukocyte Esterase Urine Glucose COVID-19 Source SARS-CoV-2 (PCR) Monoscreen Influenza Type A (PCR) Influenza Type B (PCR) RSV (PCR) Add-On Test Request 01/23/23 01/23/23 01/23/23 13:38 13:38 13:45 WBC 9.19 RBC 5.00 Hgb 14.5 Hct 43.1 MCV 86 MCH 29.0 MCHC 33.6 RDW 13.2 Plt Count 113 L MPV 10.2 Immature Gran % 0.3 Neutrophils % 81.7 Lymphocytes % 10.0 Monocytes % 5.9 Eosinophils % 1.4 Basophils % 0.7 Nucleated RBC % 0.0 Absolute Neutrophils 7.51 H Absolute Lymphocytes 0.92 L Absolute Monocytes 0.54 Absolute Eosinophils 0.13 Absolute Basophils 0.06 RBC Morphology VBG Lactate Sodium Potassium Chloride Carbon Dioxide Anion Gap BUN Creatinine Est GFR (CKD-EPI 2020) Glucose Calcium Phosphorus Magnesium Total Bilirubin AST ALT Alkaline Phosphatase C-Reactive Protein Total Protein Albumin Lipase Procalcitonin Urine Color Urine Clarity Urine pH Ur Specific [place] Urine Protein Urine Ketones Urine Blood Urine Nitrite Urine Bilirubin Urine Urobilinogen Ur Leukocyte Esterase Urine Glucose COVID-19 Source Nasopharynx SARS-CoV-2 (PCR) Negative Monoscreen Negative Influenza Type A (PCR) Negative Influenza Type B (PCR) Negative RSV (PCR) Negative Add-On Test Request 01/23/23 01/23/23 01/23/23 13:45 17:37 17:37 WBC RBC Hgb Hct MCV MCH MCHC RDW Plt Count MPV Immature Gran % Neutrophils % Lymphocytes % Monocytes % Eosinophils % Basophils % Nucleated RBC % Absolute Neutrophils Absolute Lymphocytes Absolute Monocytes Absolute Eosinophils Absolute Basophils RBC Morphology VBG Lactate Sodium Potassium Chloride Carbon Dioxide Anion Gap BUN Creatinine Est GFR (CKD-EPI 2020) Glucose Calcium Phosphorus Magnesium Total Bilirubin AST ALT Alkaline Phosphatase C-Reactive Protein 0.45 H Total Protein Albumin Lipase Procalcitonin < 0.1 Urine Color Yellow Urine Clarity Clear Urine pH 6.0 Ur Specific [place] 1.010 Urine Protein Negative Urine Ketones Negative Urine Blood Negative Urine Nitrite Negative Urine Bilirubin Negative Urine Urobilinogen 0.2 Ur Leukocyte Esterase Negative Urine Glucose Negative COVID-19 Source SARS-CoV-2 (PCR) Monoscreen Influenza Type A (PCR) Influenza Type B (PCR) RSV (PCR) Add-On Test Request 01/23/23 01/23/23 01/23/23 22:30 22:30 Unknown WBC 4.47 RBC 4.48 Hgb 13.0 L Hct 38.5 L MCV 86 MCH 29.0 MCHC 33.8 RDW 13.1 Plt Count 90 L MPV 9.8 Immature Gran % 0.2 Neutrophils % 61.5 Lymphocytes % 26.0 Monocytes % 8.3 Eosinophils % 2.9 Basophils % 1.1 Nucleated RBC % 0.0 Absolute Neutrophils 2.75 Absolute Lymphocytes 1.16 L Absolute Monocytes 0.37 Absolute Eosinophils 0.13 Absolute Basophils 0.05 RBC Morphology VBG Lactate Sodium Potassium Chloride Carbon Dioxide Anion Gap BUN Creatinine Est GFR (CKD-EPI 2020) Glucose Calcium Phosphorus Magnesium Total Bilirubin AST ALT Alkaline Phosphatase C-Reactive Protein 0.50 H Total Protein Albumin Lipase Procalcitonin Urine Color Urine Clarity Urine pH Ur Specific [place] Urine Protein Urine Ketones Urine Blood Urine Nitrite Urine Bilirubin Urine Urobilinogen Ur Leukocyte Esterase Urine Glucose COVID-19 Source SARS-CoV-2 (PCR) Monoscreen Influenza Type A (PCR) Influenza Type B (PCR) RSV (PCR) Add-On Test Request [place] 01/23/23 01/24/23 01/24/23 Unknown 06:15 06:15 WBC 4.22 L RBC 4.77 Hgb 13.7 Hct 41.3 MCV 87 MCH 28.7 MCHC 33.2 RDW 13.3 Plt Count 99 L MPV 10.6 Immature Gran % 0.2 Neutrophils % 61.6 Lymphocytes % 26.1 Monocytes % 9.0 Eosinophils % 2.6 Basophils % 0.5 Nucleated RBC % 0.0 Absolute Neutrophils 2.60 Absolute Lymphocytes 1.10 L Absolute Monocytes 0.38 Absolute Eosinophils 0.11 Absolute Basophils 0.02 RBC Morphology Normal VBG Lactate Sodium Potassium Chloride Carbon Dioxide Anion Gap BUN Creatinine Est GFR (CKD-EPI 2020) Glucose Calcium Phosphorus Magnesium Total Bilirubin AST ALT Alkaline Phosphatase C-Reactive Protein 0.52 H Total Protein Albumin Lipase Procalcitonin Urine Color Urine Clarity Urine pH Ur Specific [place] Urine Protein Urine Ketones Urine Blood Urine Nitrite Urine Bilirubin Urine Urobilinogen Ur Leukocyte Esterase Urine Glucose COVID-19 Source SARS-CoV-2 (PCR) Monoscreen Influenza Type A (PCR) Influenza Type B (PCR) RSV (PCR) Add-On Test Request Cancelled Time Spent with Patient Time Spent with Patient: 25-34 minutes Time was spent: preparing to see the patient(eg.review tests), obtaining and/or reviewing separately otained hiistory, ordering medications,tests, procedures, referring, communicating with other health respiratory care technician, indepentently interpreting results, counseling the patient and care coordination
--- NOTE | 2023-01-24 09:16 | DSE_ITS ---
Date of service: 01/24/23 Time of Service: 09:16 DS: Diagnosis Discharge Diagnosis (1) Developmental non-verbal disorder: Status: Acute (2) Bipolar disorder, unspecified: Status: Acute (3) Seizure disorder: Status: Chronic (4) Cystic fibrosis: Status: None (5) Autism: Status: None (6) Ssnfx-2-qislqtkiofg deficiency: Status: Chronic (7) Learning problem: (8) Constipation: Status: Acute (9) Obstipation: Status: Acute Discharge Plan Disposition Patient Disposition: Home Condition: Good Discharge Details Reason For Visit: abdominal pain Admit Date/Time: 01/23/23 22:00 Admit Provider: Neli Ruelas Attending Provider: Neli Ruelas Primary Care Provider: Festus Nelson Hospital Course Hospital Course: see addendum Home Meds and New Rx's Prescriptions: New polyethylene glycol 3350 [ClearLax] 17 gram powder in packet 17 g PO DAILY PRN (Reason: constipation) Qty: 100 0RF Rx Instructions: if no BM in 48 hrs- take a dose in am Continued Adult Probiotic 3 billion cell capsule 3,000 mmu cells PO DAILY multivitamin [Daily Multi-Vitamin] 1 EACH tablet 1 ea PO DAILY Patient Comments: CF Specific formula zonisamide 100 mg capsule 300 mg PO DAILY Rx Instructions: 100 mg QAM, 200 mg in PM. ursodiol 300 mg capsule 300 mg PO BID hydroxyzine HCl 50 mg tablet 50 mg PO QHS Rx Instructions: 50-100 mg at bedtime as needed for sleep benztropine 0.5 mg tablet 0.5 mg PO BID Rx Instructions: 0.5 mg morning and evening Pancreaze 21,000-54,700- 83,900 unit capsule,delayed release(DR/EC) 5 cap PO TID Rx Instructions: administer 5 caps with meals and/or 3 caps with snacks trazodone 50 mg tablet 50 mg PO QHS cholecalciferol (vitamin D3) 125 mcg (5,000 unit) capsule 125 mcg PO DAILY iodine strong (Lugols) 5 % solution 2 drp PO .COMPLEX Rx Instructions: 2 drps PO; 2 drops in some water to help thyroid, CF melatonin 5 mg tablet,chewable 10 mg PO HS PRN Rx Instructions: 2-4 gummies HS hawthorn extract 150 mg capsule 300 mg PO BID Nasal Mist 0.9 % aerosol,spray 2 spray intranasal BID Rx Instructions: Xlear nasal spray saline with xylitol 2 sprays BID naltrexone 50 mg Tablet 4.5 mg PO HS Pulmozyme 1 mg/mL Solution 2.5 mg INHALATION DAILY tobramycin with nebulizer 300 mg/5 mL Solution For Nebulization 300 mg INHALATION BID Rx Instructions: separate doses by at least 6 hours vitamin D3-vitamin K2 (MK4) 1,000-100 unit-mcg Tablet 5 tab PO DAILY magnesium glycinate 100 mg magnesium Capsule 200 mg PO BID midazolam 5 mg/2.5 mL Syringe 2.5 mg lacosamide 200 mg Tablet 200 mg BID Epidiolex 100 mg/mL solution 400 mg BID esomeprazole sodium 40 mg Recon Soln 40 mg DAILY aripiprazole 10 mg tablet 10 mg 1XD trazodone 100 mg tablet 50 mg 1XD hydroxyzine HCl 50 mg tablet 50 mg BID PRN cholecalciferol (vitamin D3) 125 mcg (5,000 unit) tablet 125 mcg 1XD vitamin K2 100 mcg Capsule 100 mcg PO 1XD omega-3 fatty acids-fish oil 300-1,000 mg capsule 1 cap 1XD acetylcysteine 600 mg Capsule 600 mg PO BID famotidine 20 mg tablet 20 mg BID ursodiol 300 mg capsule 300 mg BID levalbuterol tartrate [Xopenex HFA] 45 mcg/actuation HFA aerosol inhaler INHALATION BID budesonide-formoterol [Symbicort] 160-4.5 mcg/actuation HFA aerosol inhaler INHALATION BID hypertonic saline 7 percent 1 vial BID Pulmozyme 1 mg/mL solution 2.5 mg INHALATION DAILY [place] 75 mg/mL solution for nebulization 75 mg INHALATION TID Pancreaze 21,000-54,700- 83,900 unit capsule,delayed release(DR/EC) 3 - 5 cap PO QMEALS coenzyme Q10 120 mg Capsule 120 mg PO DAILY Discharge Instructions Additional Instructions: -pt usual diet and activites. -no changes in medications -no f/u required -If no bowel movement every 48 hours take a dose of MiraLAX to prevent constipation Activity:: Activity as Tolerated Equipment/Supplies:: No Equipment Needed Diet:: As Tolerated DS: Summary Time Spent with Patient providing and/or coordinating discharge services: Greater than 30 minutes Status at Discharge Functional status at discharge: independent ambulation Overall status at discharge: patient is back to baseline Mental Status: other Speech and Movement: other Mood: other Affect: other Exam Psych Mental Status: other Speech and Movement: other Mood: other Affect: other DS: Data Vitals/I&O Vitals and I&O: Vital Signs Temperature 36.5 C 01/24/23 07:46 Temperature Source Tympanic 01/24/23 07:46 Pulse 62 01/24/23 07:46 Pulse Rhythm Regular 01/24/23 01:55 Respiratory Rate 19 01/24/23 07:46 Respiratory Effort Normal, Non-Labored 01/24/23 01:55 Respiratory Depth Normal 01/24/23 01:55 Respiratory Pattern Normal 01/24/23 01:55 Blood Pressure 121/52 L 01/24/23 07:46 Blood Pressure Mean 92 01/23/23 19:01 Blood Pressure Position Sitting 01/23/23 13:03 Pulse Oximetry 96 01/24/23 07:46 Oxygen Delivery Method Room Air 01/24/23 07:46 Oxygen Flow Rate 0 01/24/23 07:46 Pain Level 0 01/24/23 07:46 Comment bp called over the radio 01/24/23 07:46 Intake & Output 01/23/23 01/23/23 01/24/23 11:59 23:59 11:59 Intake Total 1000 / 1000 Balance 1000 / 1000 Weight 79.4 kg Intake: IV 1000 / 1000 Other: Stool Size Large Stool Characteristics Soft Formed Brown Data Completed and Pending Labs on day of discharge: Labs from last 24 hours 01/24/23 01/24/23 01/23/23 06:15 06:15 Unknown WBC 4.22 L RBC 4.77 Hgb 13.7 Hct 41.3 MCV 87 MCH 28.7 MCHC 33.2 RDW 13.3 Plt Count 99 L MPV 10.6 Immature Gran % 0.2 Neutrophils % 61.6 Lymphocytes % 26.1 Monocytes % 9.0 Eosinophils % 2.6 Basophils % 0.5 Nucleated RBC % 0.0 Absolute Neutrophils 2.60 Absolute Lymphocytes 1.10 L Absolute Monocytes 0.38 Absolute Eosinophils 0.11 Absolute Basophils 0.02 RBC Morphology Normal VBG Lactate Sodium Potassium Chloride Carbon Dioxide Anion Gap BUN Creatinine Est GFR (CKD-EPI 2020) Glucose Calcium Phosphorus Magnesium Total Bilirubin AST ALT Alkaline Phosphatase C-Reactive Protein 0.52 H Total Protein Albumin Lipase Procalcitonin Urine Color Urine Clarity Urine pH Ur Specific [place] Urine Protein Urine Ketones Urine Blood Urine Nitrite Urine Bilirubin Urine Urobilinogen Ur Leukocyte Esterase Urine Glucose COVID-19 Source SARS-CoV-2 (PCR) Monoscreen Influenza Type A (PCR) Influenza Type B (PCR) RSV (PCR) Add-On Test Request Cancelled 01/23/23 01/23/23 01/23/23 Unknown 22:30 22:30 WBC 4.47 RBC 4.48 Hgb 13.0 L Hct 38.5 L MCV 86 MCH 29.0 MCHC 33.8 RDW 13.1 Plt Count 90 L MPV 9.8 Immature Gran % 0.2 Neutrophils % 61.5 Lymphocytes % 26.0 Monocytes % 8.3 Eosinophils % 2.9 Basophils % 1.1 Nucleated RBC % 0.0 Absolute Neutrophils 2.75 Absolute Lymphocytes 1.16 L Absolute Monocytes 0.37 Absolute Eosinophils 0.13 Absolute Basophils 0.05 RBC Morphology VBG Lactate Sodium Potassium Chloride Carbon Dioxide Anion Gap BUN Creatinine Est GFR (CKD-EPI 2020) Glucose Calcium Phosphorus Magnesium Total Bilirubin AST ALT Alkaline Phosphatase C-Reactive Protein 0.50 H Total Protein Albumin Lipase Procalcitonin Urine Color Urine Clarity Urine pH Ur Specific [place] Urine Protein Urine Ketones Urine Blood Urine Nitrite Urine Bilirubin Urine Urobilinogen Ur Leukocyte Esterase Urine Glucose COVID-19 Source SARS-CoV-2 (PCR) Monoscreen Influenza Type A (PCR) Influenza Type B (PCR) RSV (PCR) Add-On Test Request TNP 01/23/23 01/23/23 01/23/23 17:37 17:37 13:45 WBC RBC Hgb Hct MCV MCH MCHC RDW Plt Count MPV Immature Gran % Neutrophils % Lymphocytes % Monocytes % Eosinophils % Basophils % Nucleated RBC % Absolute Neutrophils Absolute Lymphocytes Absolute Monocytes Absolute Eosinophils Absolute Basophils RBC Morphology VBG Lactate Sodium Potassium Chloride Carbon Dioxide Anion Gap BUN Creatinine Est GFR (CKD-EPI 2020) Glucose Calcium Phosphorus Magnesium Total Bilirubin AST ALT Alkaline Phosphatase C-Reactive Protein 0.45 H Total Protein Albumin Lipase Procalcitonin < 0.1 Urine Color Yellow Urine Clarity Clear Urine pH 6.0 Ur Specific [place] 1.010 Urine Protein Negative Urine Ketones Negative Urine Blood Negative Urine Nitrite Negative Urine Bilirubin Negative Urine Urobilinogen 0.2 Ur Leukocyte Esterase Negative Urine Glucose Negative COVID-19 Source SARS-CoV-2 (PCR) Monoscreen Influenza Type A (PCR) Influenza Type B (PCR) RSV (PCR) Add-On Test Request 01/23/23 01/23/23 01/23/23 13:45 13:38 13:38 WBC 9.19 RBC 5.00 Hgb 14.5 Hct 43.1 MCV 86 MCH 29.0 MCHC 33.6 RDW 13.2 Plt Count 113 L MPV 10.2 Immature Gran % 0.3 Neutrophils % 81.7 Lymphocytes % 10.0 Monocytes % 5.9 Eosinophils % 1.4 Basophils % 0.7 Nucleated RBC % 0.0 Absolute Neutrophils 7.51 H Absolute Lymphocytes 0.92 L Absolute Monocytes 0.54 Absolute Eosinophils 0.13 Absolute Basophils 0.06 RBC Morphology VBG Lactate Sodium Potassium Chloride Carbon Dioxide Anion Gap BUN Creatinine Est GFR (CKD-EPI 2020) Glucose Calcium Phosphorus Magnesium Total Bilirubin AST ALT Alkaline Phosphatase C-Reactive Protein Total Protein Albumin Lipase Procalcitonin Urine Color Urine Clarity Urine pH Ur Specific [place] Urine Protein Urine Ketones Urine Blood Urine Nitrite Urine Bilirubin Urine Urobilinogen Ur Leukocyte Esterase Urine Glucose COVID-19 Source Nasopharynx SARS-CoV-2 (PCR) Negative Monoscreen Negative Influenza Type A (PCR) Negative Influenza Type B (PCR) Negative RSV (PCR) Negative Add-On Test Request 01/23/23 01/23/23 01/23/23 13:38 13:38 13:38 WBC RBC Hgb Hct MCV MCH MCHC RDW Plt Count MPV Immature Gran % Neutrophils % Lymphocytes % Monocytes % Eosinophils % Basophils % Nucleated RBC % Absolute Neutrophils Absolute Lymphocytes Absolute Monocytes Absolute Eosinophils Absolute Basophils RBC Morphology VBG Lactate 0.9 Sodium 139 Potassium 3.8 Chloride 104 Carbon Dioxide 25.9 Anion Gap 9.1 BUN 16 Creatinine 1.0 Est GFR (CKD-EPI 2020) 108.46 Glucose 105 Calcium 9.3 Phosphorus 3.8 Magnesium 2.1 Total Bilirubin 1.1 H AST 46 H ALT 77 H Alkaline Phosphatase 352 H C-Reactive Protein Total Protein 8.1 Albumin 3.8 Lipase < 10 L Procalcitonin Urine Color Urine Clarity Urine pH Ur Specific [place] Urine Protein Urine Ketones Urine Blood Urine Nitrite Urine Bilirubin Urine Urobilinogen Ur Leukocyte Esterase Urine Glucose COVID-19 Source SARS-CoV-2 (PCR) Monoscreen Influenza Type A (PCR) Influenza Type B (PCR) RSV (PCR) Add-On Test Request PFSH All Active Problems (Updated 01/24/23 @ 09:17 by Neli Ruelas DO) Obstipation (Acute) Abdominal pain in male (Acute) Constipation (Acute) Developmental non-verbal disorder (Acute) Abdominal pain (Acute) Well adult health check (Acute) Bipolar disorder, unspecified (Acute) Psychiatry evaluation at [facility] -01/17/2021 Seizure disorder (Chronic) Mmrea-8-jopcmlkiymq deficiency (Chronic) Medical History Usfvc-4-lneadcxybpi deficiency Learning problem Surgical History splinter removal Family History Mother Hyperlipidemia Sister Asthma Grandparent Essential hypertension Heart disease Hyperlipidemia Social History Smoking/Tobacco Use Status: Never Smoking risk assessment performed?: Yes Alcohol Intake: never Drug use: Never Substance use type: does not use Household members: family Housing: house Pets and animals: Yes (1 dog at mom's, 1 dog at dad's and outdoor cats) Pets and animals: cat(s) and dog(s) Do you feel safe at home: Yes Do you feel safe in your relationship?: Yes Time Spent with Patient Time Spent with Patient: <45 minutes Time was spent: preparing to see the patient(eg.review tests), obtaining and/or reviewing separately otained hiistory, ordering medications,tests, procedures, referring, communicating with other health acute care nurse, indepentently interpreting results, counseling the patient and care coordination
[2023-01-24] MEDS: Levalbuterol HFA 15 GM INH 2 PUFF IH (09:26)
== END 2023-01-24 10:10 | disposition home or self-care (01) ==
LOC: ER 22:29 → MS 01-24 08:37
PROVIDERS: Emergency Medicine Emergency Medical Services; Admitting Provider Surgery; Emergency Provider Emergency Medicine; PCP Pediatrics; Visit Provider Surgery
DX: K59.00 Constipation, unspecified (principal); R10.9 Unspecified abdominal pain; E84.9 Cystic fibrosis, unspecified; G40.909 Epilepsy, unspecified, not intractable, without status epilepticus; F31.9 Bipolar disorder, unspecified; F84.0 Autistic disorder; F81.89 Other developmental disorders of scholastic skills; E88.01 Alpha-1-antitrypsin deficiency; K74.60 Unspecified cirrhosis of liver; R16.1 Splenomegaly, not elsewhere classified; R93.5 Abnormal findings on diagnostic imaging of other abdominal regions, including retroperitoneum
CPT/HCPCS: 36415; 74177; 80053; 83690; 84145; 87637; 94640; 96374; 96375; 99285; J1650; 70450; 71260; 72125; 72192; 81003; 83605; 83735; 84100; 85025; 86140; 86308; 94664; 94667; G0378; J3490; J7639

== ENCOUNTER 2023-01-24 10:28 | Emergency (ER) | payer MEDICAID, SELFPAY ==
[2023-01-24] VITALS (59 sets, daily range): BP systolic 107–133; BP diastolic 59–72; PULSE 79–111; RESP 16–38; TEMP 36.9–37.1; O2SAT 90–98
--- NOTE | 2023-01-24 10:40 | ED.GENADUL_ITS ---
Discharge Plan Disposition Patient Disposition: Home Discharge Details Clinical Impression: Breakthrough seizure Primary Care Provider: Festus Nelson ED Provider: Marco A Qureshi Bryan Meds and New Rx's Prescriptions: No Action ursodiol 300 mg capsule 600 mg PO HS hydroxyzine HCl 50 mg tablet 50 mg PO DAILY PRN (Reason: Anxiety) Rx Instructions: 50-100 mg at bedtime as needed for sleep trazodone 50 mg tablet 50 mg PO QHS hawthorn extract 150 mg capsule 160 mg PO BID vitamin A 10,000 unit Tablet 10,000 unit PO 1XD fluticasone propionate 50 mcg/actuation spray,suspension 1 spray INTRANASAL DAILY Garlicin Capsule 180 mg PO BID sodium chloride 7 % solution for nebulization 1 inh INHALATION BID Rx Instructions: Take 1 vial in the morning and 2 vials at night melatonin 3 mg Tablet 3 mg PO HS lactase [Lactaid] 3,000 unit Tablet 1 unit PO PRN PRN magnesium glycinate 100 mg magnesium Capsule 200 mg PO BID lacosamide 200 mg Tablet 200 mg PO BID Epidiolex 100 mg/mL solution 400 mg PO BID esomeprazole sodium 40 mg Recon Soln 40 mg DAILY Rx Instructions: 30-60 minutes before breakfast aripiprazole 10 mg tablet 10 mg PO 1XD hydroxyzine HCl 50 mg tablet 50 mg PO TID Rx Instructions: Take at 8AM, 1PM, 6PM cholecalciferol (vitamin D3) 125 mcg (5,000 unit) tablet 125 mcg PO 1XD vitamin K2 100 mcg Capsule 100 mcg PO 1XD omega-3 fatty acids-fish oil 300-1,000 mg capsule 1 cap PO 1XD acetylcysteine 600 mg Capsule 600 mg PO BID famotidine 20 mg tablet 20 mg PO BID ursodiol 300 mg capsule 300 mg PO DAILY AM levalbuterol tartrate [Xopenex HFA] 45 mcg/actuation HFA aerosol inhaler 2 puff INHALATION BID budesonide-formoterol [Symbicort] 160-4.5 mcg/actuation HFA aerosol inhaler 2 puff INHALATION BID Pulmozyme 1 mg/mL solution 2.5 mg INHALATION DAILY [place] 75 mg/mL solution for nebulization 75 mg INHALATION TID Pancreaze 21,000-54,700- 83,900 unit capsule,delayed release(DR/EC) 3 - 5 cap PO QMEALS Rx Instructions: 3 capsules with snacks. 5 capsules with every meal coenzyme Q10 120 mg Capsule 120 mg PO DAILY Discharge Instructions Additional Instructions: You are seen in the emergency department for your breakthrough seizure. This was most likely the result of decreased sleep while you are hospitalized. Neurology at [facility] was consulted and they advised that you continue your regular seizure medications. Please return to the emergency department if you develop any fevers any loss of consciousness or any recurrent seizures. Discharge Data Discharge Date/Time-TO BE ENTERED AT DEPARTURE: 01/24/23 13:05 Medical Decision Making HPI This is a 22-year-old male with a history of cystic fibrosis and seizure disorder arriving to the emergency department via paramedics in the setting of a generalized tonic-clonic seizure. Patient was reportedly hospitalized overnight last night in the setting of constipation. He received all of his home medications this morning and yesterday evening and was discharged. He was sitting in his care provider's car in the passenger seat when he had a generalized tonic-clonic seizure. He is postictal. He has had no recent changes in his medications. No recent fevers. He tolerated breakfast this morning without nausea nor vomiting. His last breakthrough seizure was reportedly last month. He did not strike his head this morning. No loss of bowel or bladder. Seizure lasted less than 5 minutes and resolved w/out intervention. Exam General: Handling secretions with some dried foam at the mouth. Head: Normocephalic, well-healing abrasion to midline forehead. Eye: [Pupils equal, round reactive to light.] No conjunctival injection. No scleral icterus. Ear, nose, mouth, throat: Grossly normal inspection. No hemotympanum bilaterally. No septal hematoma. No signs of intraoral trauma. Neck: Trachea midline. Cardiovascular: Well-perfused distal extremities. Rapid regular rate. Respiratory: Nonlabored respiration. Clear lungs bilaterally. Gastrointestinal: Nondistended abdomen. Soft nontender Musculoskeletal: No edema. No tenderness on palpation of bilateral upper and lower extremities. Skin: Normal for age and race, grossly normal temperature and turgor. No acute rash. Neurologic: GCS 10: E4, V1, M5. Patient nonverbal at baseline. MDM This is a normothermic but tachycardic 22-year-old male seen immediately on arrival with autism seizure disorder with breakthrough seizure most likely secondary to being out of his routine after hospitalization last night. No hemotympanum and no reported head strike nor signs of head trauma so my suspicion is low for intracranial hemorrhage and I do not feel that patient requires a CT head. Fingerstick blood glucose reassuring. No fever nor nuchal rigidity to suggest meningitis. No pain out of proportion to suggest necrotizing soft tissue infection. No hypoxia so no indication for intubation and no hypercarbia. No reported vomiting to suggest increased risk for electrolyte abnormalities however will obtain basic labs and monitor patient in the ED. We will obtain a twelve-lead ECG to assess for any dysrhythmias. Patient reportedly has received and lacosamide around Epidiolex which is a CBD medicine to reportedly prevent seizures. It certainly possible that there may be a component of sleep deprivation which led to his breakthrough seizure given his overnight in the hospital. No ongoing seizures so I do not feel that patient requires an EEG. 10:51 AM I spoke to Dr. Harman from neuro at [facility] who reported that at baseline patient has breakthrough seizures. He advised continue lacosamide 200mg BID in addition to Epidiolex.No change in dose. 11:24 AM Patient continues to be postictal. Maintaining oxygen saturations. Normal end- tidal CO2. We will continue to monitor. 11:52 AM Comprehensive metabolic panel showing REBECCA. Baseline creatinine 1.0. Current creatinine 1.4. Decrease bicarbonate most consistent with acidosis following seizure. Doubt DKA given only mildly elevated glucose. Mild persistent LFT abnormalities. Normal calcium. CBC with no anemia thrombocytopenia nor leukocytosis. Negative troponin. 12:31 PM Repeat labs with resolving REBECCA. Normal bicarbonate. Patient sitting upright watching television. Repeat GCS 11: E(4), V(1), M(6). Patient discharged in the custody of his care providers. Chronic conditions affecting the care of the patient: Seizure disorder History obtained from an outside historian: Paramedics External record review: [facility] EMR [Diagnostic interpretations performed by me:] [Per my independent interpretation EKG shows:] Narrow complex normal sinus rhythm at a rate of 92. Normal axis. Intervals within normal limits. T wave inversion in V2 suspect V1 V2 misplacement will repeat. No prior for comparison. No acute injury pattern. Repeat ECG showing narrow complex normal sinus rhythm at a rate of 78. Normal axis. No ST segment abnormalities. Compared to prior leads V1 and V2 have been moved inferiorly and T wave inversion in V2 has resolved. No acute injury pattern. Medications: Normal saline Social determinants of health affecting disposition: Requires support providers at baseline Management discussed with: [facility] neurology Treatment/interventions considered: Hospitalization but deferred Response to therapies provided:improved in the ED w/IVF HPI General Date/Time Provider Initiated Documentation: 01/24/23 10:40 . Related Data Home Medications Medication Instructions Recorded Confirmed hawthorn extract 150 mg capsule 160 mg PO BID 08/02/21 01/24/23 hydroxyzine HCl 50 mg tablet 50 mg PO DAILY PRN Anxiety 08/02/21 01/24/23 trazodone 50 mg tablet 50 mg PO QHS 08/02/21 01/24/23 ursodiol 300 mg capsule 600 mg PO HS 08/02/21 09/13/22 magnesium glycinate 200 mg PO BID 02/19/22 01/24/23 acetylcysteine 600 mg capsule 600 mg PO BID 01/23/23 01/24/23 aripiprazole 10 mg tablet 10 mg PO 1XD 01/23/23 01/24/23 aztreonam lysine 75 mg/mL solution 75 mg inhalation TID 01/23/23 01/23/23 for nebulization ([place]) budesonide-formoterol HFA 160 2 puff inhalation BID 01/23/23 01/24/23 mcg-4.5 mcg/actuation aerosol inhaler (Symbicort) cannabidiol 100 mg/mL oral 400 mg PO BID 01/23/23 01/24/23 solution (Epidiolex) cholecalciferol (vitamin D3) 125 125 mcg PO 1XD 01/23/23 01/24/23 mcg (5,000 unit) tablet coenzyme Q10 120 mg capsule 120 mg PO DAILY 01/23/23 01/24/23 dornase kathryn 1 mg/mL solution for 2.5 mg inhalation DAILY 01/23/23 01/24/23 inhalation (Pulmozyme) esomeprazole sodium 40 mg 40 mg DAILY 01/23/23 01/24/23 intravenous solution famotidine 20 mg tablet 20 mg PO BID 01/23/23 01/24/23 hydroxyzine HCl 50 mg tablet 50 mg PO TID 01/23/23 01/24/23 lacosamide 200 mg tablet 200 mg PO BID 01/23/23 01/24/23 levalbuterol tartrate 45 2 puff inhalation BID 01/23/23 01/24/23 mcg/actuation aerosol inhaler (Xopenex HFA) lipase 21,000-protease 3 - 5 cap PO QMEALS 01/23/23 01/24/23 54,700-amylase 83,900 unit capsule,delayed rel (Pancreaze) omega-3 fatty acids-fish oil 300 1 cap PO 1XD 01/23/23 01/24/23 mg-1,000 mg capsule ursodiol 300 mg capsule 300 mg PO DAILY AM 01/23/23 01/24/23 vitamin K2 100 mcg capsule 100 mcg PO 1XD 01/23/23 01/24/23 fluticasone propionate 50 1 spray intranasal DAILY 01/24/23 01/24/23 mcg/actuation nasal spray,suspension garlic 180 mg PO BID 01/24/23 01/24/23 lactase 3,000 unit tablet (Lactaid) 1 unit PO PRN PRN 01/24/23 01/24/23 melatonin 3 mg tablet 3 mg PO HS 01/24/23 01/24/23 sodium chloride 7 % for 1 inh inhalation BID 01/24/23 01/24/23 nebulization vitamin A 10,000 unit tablet 10,000 unit PO 1XD 01/24/23 01/24/23 Allergies Allergy/AdvReac Type Severity Reaction Status Date / Time amoxicillin Allergy Intermediate RASH Verified 01/24/23 11:07 levetiracetam [From Keppra] Allergy Unknown aggression Verified 01/24/23 11:07 ciprofloxacin [From Cipro] Allergy Unverified 01/24/23 11:07 clobazam Allergy Unverified 01/24/23 11:07 lamotrigine Allergy Unverified 01/24/23 11:07 elexacaftor [From Trikafta] AdvReac Severe Verified 01/24/23 11:07 ivacaftor [From Symdeko] AdvReac Severe Verified 01/24/23 11:07 tezacaftor [From Symdeko] AdvReac Severe Verified 01/24/23 11:07 Benzodiazepines AdvReac Intermediate Verified 01/24/23 11:07 latex AdvReac Unknown RASH Verified 01/24/23 11:07 montelukast [From Singulair] AdvReac Behavioral Verified 01/24/23 11:07 side effects General Stated Complaint: Seizure MARINA: 3 PFSH All Active Problems (Updated 01/25/23 @ 00:01 by ARIES ZAPATA) Breakthrough seizure (Acute) Obstipation (Acute) Developmental non-verbal disorder (Acute) Well adult health check (Acute) Bipolar disorder, unspecified (Acute) Psychiatry evaluation at [facility] -01/17/2021 Seizure disorder (Chronic) Wvwne-7-snhwhznyhia deficiency (Chronic) Medical History Zgivs-1-qrldcspsiol deficiency Learning problem Surgical History splinter removal Family History Mother Hyperlipidemia Sister Asthma Grandparent Essential hypertension Heart disease Hyperlipidemia Social History Smoking/Tobacco Use Status: Never Smoking risk assessment performed?: Yes Alcohol Intake: never Drug use: Never Substance use type: does not use Household members: family Housing: house Pets and animals: Yes (1 dog at mom's, 1 dog at dad's and outdoor cats) Pets and animals: cat(s) and dog(s) Do you feel safe at home: Yes Do you feel safe in your relationship?: Yes Course Vital Signs Vital signs: Vital Signs Pulse 108 H 01/24/23 10:29 Respiratory Rate 01/24/23 10:29 Blood Pressure 133/72 01/24/23 10:29 Pulse Oximetry 95 01/24/23 10:29 Pulse 108 H 01/24/23 10:29 Respiratory Rate 23 01/24/23 10:29 Blood Pressure 133/72 01/24/23 10:29 Blood Pressure Position Sitting 01/24/23 10:29 Pulse Oximetry 95 01/24/23 10:29 Oxygen Delivery Method Room Air 01/24/23 10:29 Oxygen Flow Rate 0 01/24/23 10:29 Critical Care Time Critical Care Time Critical Care Time: Yes Total Critical Care Time: 30 Attestation: Bedside assessment and monitoring
--- NOTE | 2023-01-24 10:45 | RT.EKG_ITS ---
APPROVED REPORT Exam: Resting ECG Reason for Exam: Seizure Patient Location: E HR:92 bpm ECG Measurements Heart Rate 92 AXIS AK 148 P 57 QRSd 96 QRS 63 QT 382 T 52 QTc 473 Conclusion Sinus rhythm...normal P axis, V-rate 60- 99 Narrow complex normal sinus rhythm at a rate of 92. Normal axis. Intervals within normal limits. T wave inversion in V2. No prior for comparison. No acute injury pattern. No ST segment abnormaliti es.
--- NOTE | 2023-01-24 10:45 | RESPIRATORY ---
PT D/C from [facility], had seizure once in car and [facility] called. RT get to ED to see if needed, Dr requested patient be placed on NC with CO2 monitor for trending purposes. Pt in low 90s upon arrival, RT placed on 1L NC and O2 sensor on patient post seizure. Patient was 96-98% on 1L, requested patient be placed on RA. When RT left post-titration, patient was 93-95% on RA and still has CO2 NC in place. RT no longer needed and ED will call if needed again.
[2023-01-24] MEDS: Normal Saline 1,000 ML 500 ML IV (11:02)
[2023-01-24 11:05] LABS: Abs Immature Grans 0.04 10^3/uL (0.0-0.06); Absolute Basophil Count 0.06 10^3/uL (0.0-0.2); Absolute Eosinophil Count 0.17 10^3/uL (0.0-0.7); Absolute Lymphocyte Count 2.13 10^3/uL (1.2-3.4); Absolute Monocyte Count 0.51 10^3/uL (0.1-0.8); Absolute Neutrophil Count 6.04 10^3/uL (1.2-6.7); Basophils % 0.7; Eosinophils % 1.9; HCT 48.4 % (40.0-50.0); HGB 15.3 g/dL (13.5-17.5); Immature Grans % 0.4; Lymphocytes % 23.8; MCH 28.5 pg (27.0-33.0); MCHC 31.6 % (32.0-36.0); MCV 90 fL (80-95); MPV 10.3 fL (8.0-11.0); Monocytes % 5.7; Neutrophils % 67.5; Platelet Count 130 10^3/uL (130-400); RBC 5.36 10^6/uL (4.36-5.78); RDW 13.5 % (11.8-14.1); RDW-SD 45.3 fL; WBC 8.95 10^3/uL (4.4-10.8)
[2023-01-24 11:28] LABS: ALT 80 U/L (16-63); AST 55 U/L (15-37); Albumin 3.9 g/dL (3.4-5.0); Alkaline Phosphatase 373 U/L (46-116); Anion Gap 21.1 mmol/L (3-11); BUN 13 mg/dL (7-18); Bilirubin, Total 1.4 mg/dL (0.2-1.0); CO2 16.9 mmol/L (21.0-32.0); CREATININE 1.4 mg/dL (0.70-1.30); Calcium 9.6 mg/dL (8.5-10.1); Chloride 103 mmol/L (98-107); Estimated GFR 72.43 (mL/min/1.73m2); Glucose 119 mg/dL (74-106); Potassium 3.6 mmol/L (3.5-5.1); Sodium 141 mmol/L (136-145); Total Protein 8.6 g/dL (6.4-8.2)
[2023-01-24 11:29] LABS: Troponin I < 50 ng/L (<or=60)
[2023-01-24] MEDS: Normal Saline 500 ML IV (12:09)
[2023-01-24 12:21] LABS: Anion Gap 7.4 mmol/L (3-11); BUN 13 mg/dL (7-18); CO2 25.6 mmol/L (21.0-32.0); CREATININE 1.1 mg/dL (0.70-1.30); Chloride 105 mmol/L (98-107); Estimated GFR 96.74 (mL/min/1.73m2); Glucose 177 mg/dL (74-106); Potassium 4.5 mmol/L (3.5-5.1); Sodium 138 mmol/L (136-145)
--- NOTE | 2023-01-24 12:30 | RT.EKG_ITS ---
APPROVED REPORT Exam: Resting ECG Reason for Exam: Abnormal initial ECG Patient Location: E HR:78 bpm ECG Measurements Heart Rate 78 AXIS AK 152 P 34 QRSd 96 QRS 58 QT 372 T 44 QTc 424 Conclusion Sinus rhythm...normal P axis, V-rate 60- 99 Repeat ECG showing narrow complex normal sinus rhythm at a rate of 78. Normal axis. No ST segment a bnormalities. Compared to prior leads V1 and V2 have been moved inferiorly and T wave inversion in V 2 has resolved. No acute injury pattern.
== END 2023-01-24 13:05 | disposition home or self-care (01) ==
LOC: ER 12:45
PROVIDERS: Emergency Provider Emergency Medicine; PCP Pediatrics
DX: G40.409 Other generalized epilepsy and epileptic syndromes, not intractable, without status epilepticus (principal); R94.31 Abnormal electrocardiogram [ECG] [EKG]; E84.9 Cystic fibrosis, unspecified; F84.0 Autistic disorder
CPT/HCPCS: 36415; 80048; 80053; 82962; 93005; 96360; 96361; 99284; 84484; 85025; 93010

== ENCOUNTER 2023-03-19 18:40 | Emergency (ER) | payer MEDICAID, SELFPAY ==
[2023-03-19 18:43] VITALS: BP 140/74; PULSE 84; RESP 16; TEMP 36.5; O2SAT 95
--- NOTE | 2023-03-19 18:45 | DI.CT_ITS ---
Exam(s) CT HEAD WO EXAM: CT HEAD WO CLINICAL HISTORY: head injury. TECHNIQUE: Imaging Protocol: Axial computed tomography images with coronal and sagittal reformatted images were created and reviewed COMPARISON: CT CT HEAD CERVICAL SPINE WO from 01/23/2023 FINDINGS: Ventricles and Extra axial spaces: Normal in size and morphology for the patient's age. Hemorrhage: None. Cerebral parenchyma: No evidence of acute infarct or mass. Midline shift: None. Brainstem/Cerebellum: Normal. Calvarium: Normal. Visualized Paranasal sinuses/Mastoids: Significant opacification of the ethmoid, frontal as well as m axillary sinuses. Mastoid air cells are clear. Bilateral medial antrectomies. Soft Tissues: Unremarkable. IMPRESSION: No acute intracranial process. Severe chronic sinus disease. RADIATION DOSE DELIVERED: Total DLP DATA REPOSITORY: All CT scans at this facility are submitted to the National Radiology Data Registry (NRDR) Dose Index Registry (DIR) with the [employer] (A[employer]). RADIATION OPTIMIZATION: All CT scans at this facility use at least one of these dose optimization te chniques: automated exposure control; mA and/or kV adjustment per patient size (includes targeted exa ms where dose is matched to clinical indication); or iterative reconstruction.
--- NOTE | 2023-03-19 18:51 | W.ED.GENAD ---
Discharge Plan Disposition Patient Disposition: Home Discharge Details Clinical Impression: Head injury Primary Care Provider: Festus Nelson ED Provider: Fernando Enriquez Home Meds and New Rx's Prescriptions: No Action ursodiol 300 mg capsule 600 mg PO HS hydroxyzine HCl 50 mg tablet 50 mg PO DAILY PRN (Reason: Anxiety) Rx Instructions: 50-100 mg at bedtime as needed for sleep trazodone 50 mg tablet 50 mg PO QHS hawthorn extract 150 mg capsule 160 mg PO BID vitamin A 10,000 unit Tablet 10,000 unit PO 1XD fluticasone propionate 50 mcg/actuation spray,suspension 1 spray INTRANASAL DAILY Garlicin Capsule 180 mg PO BID sodium chloride 7 % solution for nebulization 1 inh INHALATION BID Rx Instructions: Take 1 vial in the morning and 2 vials at night melatonin 3 mg Tablet 3 mg PO HS lactase [Lactaid] 3,000 unit Tablet 1 unit PO PRN PRN magnesium glycinate 100 mg magnesium Capsule 200 mg PO BID lacosamide 200 mg Tablet 200 mg PO BID Epidiolex 100 mg/mL solution 400 mg PO BID esomeprazole sodium 40 mg Recon Soln 40 mg DAILY Rx Instructions: 30-60 minutes before breakfast aripiprazole 10 mg tablet 10 mg PO 1XD hydroxyzine HCl 50 mg tablet 50 mg PO TID Rx Instructions: Take at 8AM, 1PM, 6PM cholecalciferol (vitamin D3) 125 mcg (5,000 unit) tablet 125 mcg PO 1XD vitamin K2 100 mcg Capsule 100 mcg PO 1XD omega-3 fatty acids-fish oil 300-1,000 mg capsule 1 cap PO 1XD acetylcysteine 600 mg Capsule 600 mg PO BID famotidine 20 mg tablet 20 mg PO BID ursodiol 300 mg capsule 300 mg PO DAILY AM levalbuterol tartrate [Xopenex HFA] 45 mcg/actuation HFA aerosol inhaler 2 puff INHALATION BID budesonide-formoterol [Symbicort] 160-4.5 mcg/actuation HFA aerosol inhaler 2 puff INHALATION BID Pulmozyme 1 mg/mL solution 2.5 mg INHALATION DAILY [place] 75 mg/mL solution for nebulization 75 mg INHALATION TID Pancreaze 21,000-54,700- 83,900 unit capsule,delayed release(DR/EC) 3 - 5 cap PO QMEALS Rx Instructions: 3 capsules with snacks. 5 capsules with every meal coenzyme Q10 120 mg Capsule 120 mg PO DAILY Discharge Instructions Instructions: Head Injury (ED) Additional Instructions: You were seen in the emergency department after a head injury. We performed a CAT scan your head that was unremarkable. Keep the wound on your forehead clean and dry. Follow-up tomorrow as you did not want to get a tetanus shot today to see if your primary care doctor can administer 1 for you or any other health clinic. Return if you have any other concerns. Referrals: Mary Kay Owens [Emergency Nurse] - 1 day Medical Decision Making 22-year-old male who is averbal at baseline due to his psychiatric illness presents with head injury. Says behavior all the way he was hitting his head. No other injuries found on exam. Has an abrasion on his forehead. We will update his tetanus. He ended up vomiting. He has a nonfocal neurologic exam at present but he is averbal and it is difficult to do a full neurologic exam as he does not always follow commands. Will get CT head to rule out intracranial hemorrhage secondary to trauma. No other signs of trauma on examination. Will await CT and reevaluate. 751pm CT head unremarkable. They are unsure of his last tetanus. They think it might of been in 2011. The mom thinks it was probably when he turned 17 about 5 years ago. I recommended we update his tetanus but mom wants to hold off on this and follow-up with her doctor. I told her that this puts him at an increased risk of developing tetanus and she expressed understanding and would still like to go home. We will discharge her mom says she will call the primary tomorrow. Will discharge with return precautions. Medical Records Medical records reviewed: Yes I reviewed the patient's medical records. Imaging Data Radiologic Study: Attestation: I personally reviewed and interpreted this imaging study as follows: Imaging: CT Scan (CT head) Radiologist's impression: CT head unremarkable HPI General Mode of arrival: ambulatory. Date/Time Provider Initiated Documentation: 03/19/23 18:41. Limitations to Documentation: language barrier. Information obtained by: patient (averbal), family, RN notes reviewed and old records reviewed. HPI Narrative: 22-year-old male with long psychiatric history presents with a head injury. Has a behavior where he hits his head a lot. Hit his head again today. Has an abrasion on his forehead from this. Ended up vomiting from the head injury. The nurse at his facility says he is otherwise acting normally but because of the vomiting and the head injury referred him here. Patient is averbal and unable to give further history. Related Data Home Medications Medication Instructions Recorded Confirmed hawthorn extract 150 mg capsule 160 mg PO BID 08/02/21 01/24/23 hydroxyzine HCl 50 mg tablet 50 mg PO DAILY PRN Anxiety 08/02/21 01/24/23 trazodone 50 mg tablet 50 mg PO QHS 08/02/21 01/24/23 ursodiol 300 mg capsule 600 mg PO HS 08/02/21 09/13/22 magnesium glycinate 200 mg PO BID 02/19/22 01/24/23 acetylcysteine 600 mg capsule 600 mg PO BID 01/23/23 01/24/23 aripiprazole 10 mg tablet 10 mg PO 1XD 01/23/23 01/24/23 aztreonam lysine 75 mg/mL solution 75 mg inhalation TID 01/23/23 01/23/23 for nebulization ([place]) budesonide-formoterol HFA 160 2 puff inhalation BID 01/23/23 01/24/23 mcg-4.5 mcg/actuation aerosol inhaler (Symbicort) cannabidiol 100 mg/mL oral 400 mg PO BID 01/23/23 01/24/23 solution (Epidiolex) cholecalciferol (vitamin D3) 125 125 mcg PO 1XD 01/23/23 01/24/23 mcg (5,000 unit) tablet coenzyme Q10 120 mg capsule 120 mg PO DAILY 01/23/23 01/24/23 dornase kathryn 1 mg/mL solution for 2.5 mg inhalation DAILY 01/23/23 01/24/23 inhalation (Pulmozyme) esomeprazole sodium 40 mg 40 mg DAILY 01/23/23 01/24/23 intravenous solution famotidine 20 mg tablet 20 mg PO BID 01/23/23 01/24/23 hydroxyzine HCl 50 mg tablet 50 mg PO TID 01/23/23 01/24/23 lacosamide 200 mg tablet 200 mg PO BID 01/23/23 01/24/23 levalbuterol tartrate 45 2 puff inhalation BID 01/23/23 01/24/23 mcg/actuation aerosol inhaler (Xopenex HFA) lipase 21,000-protease 3 - 5 cap PO QMEALS 01/23/23 01/24/23 54,700-amylase 83,900 unit capsule,delayed rel (Pancreaze) omega-3 fatty acids-fish oil 300 1 cap PO 1XD 01/23/23 01/24/23 mg-1,000 mg capsule ursodiol 300 mg capsule 300 mg PO DAILY AM 01/23/23 01/24/23 vitamin K2 100 mcg capsule 100 mcg PO 1XD 01/23/23 01/24/23 fluticasone propionate 50 1 spray intranasal DAILY 01/24/23 01/24/23 mcg/actuation nasal spray,suspension garlic 180 mg PO BID 01/24/23 01/24/23 lactase 3,000 unit tablet (Lactaid) 1 unit PO PRN PRN 01/24/23 01/24/23 melatonin 3 mg tablet 3 mg PO HS 01/24/23 01/24/23 sodium chloride 7 % for 1 inh inhalation BID 01/24/23 01/24/23 nebulization vitamin A 10,000 unit tablet 10,000 unit PO 1XD 01/24/23 01/24/23 Allergies Allergy/AdvReac Type Severity Reaction Status Date / Time amoxicillin Allergy Intermediate RASH Verified 01/24/23 11:07 levetiracetam [From Keppra] Allergy Unknown aggression Verified 01/24/23 11:07 ciprofloxacin [From Cipro] Allergy Unverified 01/24/23 11:07 clobazam Allergy Unverified 01/24/23 11:07 lamotrigine Allergy Unverified 01/24/23 11:07 elexacaftor [From Trikafta] AdvReac Severe Verified 01/24/23 11:07 ivacaftor [From Symdeko] AdvReac Severe Verified 01/24/23 11:07 tezacaftor [From Symdeko] AdvReac Severe Verified 01/24/23 11:07 Benzodiazepines AdvReac Intermediate Verified 01/24/23 11:07 latex AdvReac Unknown RASH Verified 01/24/23 11:07 montelukast [From Singulair] AdvReac Behavioral Verified 01/24/23 11:07 side effects General Stated Complaint: HeadInjury MARINA: 2 Review of Systems Unobtainable due to mental condition (averbal at [facility] due to psychiatric disorder) PFS All Active Problems (Updated 03/19/23 @ 19:50 by Fernando Enriquez MD) Head injury (Acute) Obstipation (Acute) Developmental non-verbal disorder (Acute) Well adult health check (Acute) Bipolar disorder, unspecified (Acute) Psychiatry evaluation at [facility] -01/17/2021 Seizure disorder (Chronic) [id number] deficiency (Chronic) Medical History Learning problem [id number] deficiency Surgical History splinter removal Family History Mother Hyperlipidemia Sister Asthma Grandparent Essential hypertension Heart disease Hyperlipidemia Social History Smoking/Tobacco Use Status: Never Smoking risk assessment performed?: Yes Alcohol Intake: never Drug use: Never Substance use type: does not use Household members: family Housing: house Pets and animals: Yes (1 dog at mom's, 1 dog at dad's and outdoor cats) Pets and animals: cat(s) and dog(s) Do you feel safe at home: Yes Do you feel safe in your relationship?: Yes Exam Const General: cooperative Nutritional Appearance: average body habitus Orientation: alert, awake and oriented x3 HENMT Mouth: moist mucous membranes Other: Abrasion on the anterior forehead. Bleeding controlled on its own. No lac. No other signs of trauma to the head or neck. Eyes Pupils: PERRL EOM: EOM intact bilaterally and No nystagmus Neck Neck: full ROM, nontender and no tracheal deviation Chest Chest: normal inspection of the chest, normal palpation of entire chest wall and no localized rib tenderness Resp Auscultation: clear to auscultation bilaterally Cardio Rate: regular rate Rhythm: regular rhythm GI Inspection: normal to inspection Palpation: soft, no guarding, not rigid and nontender Back/Spine/Pelvis Back: No no CVA tenderness Thoracic/Lumbar Spine: thoracic and lumbar spine normal to inspection, No thoracic spinal tenderness and No lumbar spinal tenderness Skin General skin exam: no rashes or lesions noted Neuro General: patient alert, patient awake and patient oriented x3 Cranial Nerves: CN's II-XI intact bilaterally, PERRL and no nystagmus Cognition: normal cognition Motor: muscle tone normal throughout and strength 5/5 throughout Sensory Exam: no sensory deficits noted Extrem General: normal to inspection and full ROM Right upper extremity: normal to inspection and full ROM Left upper extremity: normal to inspection and full ROM Course Vital Signs Vital signs: Vital Signs Temperature 36.5 C 03/19/23 18:43 Pulse 84 03/19/23 18:43 Respiratory Rate 16 03/19/23 18:43 Blood Pressure 140/74 03/19/23 18:43 Pulse Oximetry 95 03/19/23 18:43 Temperature 36.5 C 03/19/23 18:43 Temperature Source Oral 03/19/23 18:43 Pulse 84 03/19/23 18:43 Respiratory Rate 16 03/19/23 18:43 Blood Pressure 140/74 03/19/23 18:43 Blood Pressure Position Sitting 03/19/23 18:43 Pulse Oximetry 95 03/19/23 18:43 Oxygen Delivery Method Room Air 03/19/23 18:43 Oxygen Flow Rate 0 03/19/23 18:43
--- NOTE | 2023-03-19 19:26 | DI.VRAD_ITS ---
PROCEDURE INFORMATION: Exam: CT Head Without Contrast Exam date and time: 03/19/2023 7:09 PM Age: 22 years old Clinical indication: Other: Head injury TECHNIQUE: Imaging protocol: Computed tomography of the head without contrast. COMPARISON: CT HEAD CERVICAL SPINE WO 01/23/2023 3:18 PM FINDINGS: Brain: No acute intracranial hemorrhage, mass-effect, midline shift, or extra-axial collection is seen. The davison white matter differentiation appears preserved. Cerebral ventricles: The ventricular system and basilar cisterns appear appropriate in size and configuration. Paranasal sinuses: There is complete opacification of the right frontal sinus, complete opacification of the ethmoid air cells, and subtotal opacification of the maxillary sinuses with thick mucoperiosteal thickening and fluid. The sphenoid bone is not pneumatized. Mastoid air cells: The mastoid air cells appear well-aerated. Auditory system: The middle ear cavities appear clear. Orbital cavities: The globes and intraorbital structures appear grossly intact. Nasal cavity: There is mild leftward deviation of the nasal septum. Bones/joints: The bony calvarium appears intact. No depressed skull fracture is seen. Soft tissues: No gross focal scalp hematoma is seen. IMPRESSION: 1. No acute intracranial hemorrhage or depressed skull fracture. 2. Severe diffuse paranasal sinusitis, worse compared with the prior study from January 23, 2023. ENT follow-up recommended. Dictated and Authenticated by: Brandon Damian MD. Ordering:VICKIE King MD
== END 2023-03-19 19:53 | disposition home or self-care (01) ==
PROVIDERS: Emergency Provider Student in an Organized Health Care Education/Training Program; PCP Pediatrics
DX: S09.8XXA Other specified injuries of head, initial encounter (principal); J32.4 Chronic pansinusitis; F80.89 Other developmental disorders of speech and language; E88.01 Alpha-1-antitrypsin deficiency; W22.01XA Walked into wall, initial encounter
CPT/HCPCS: 99284; 70450; 99283

== ENCOUNTER 2023-04-06 10:14 | Emergency (ER) | payer MEDICAID, SELFPAY ==
[2023-04-06 10:19] VITALS: BP 124/70; PULSE 63; RESP 18; TEMP 36.8; O2SAT 95
[2023-04-06 10:33] VITALS: PULSE 82; RESP 14; O2SAT 98
[2023-04-06 11:31] LABS: Bilirubin Negative (Negative); Blood Negative (Negative); Clarity Clear (Clear); Glucose Negative (Negative); Ketones Negative (Negative); Leukocyte Esterase Negative (Negative); Nitrite Negative (Negative); Urobilinogen 0.2 mg/dL (Up to 0.2)
--- NOTE | 2023-04-06 11:54 | ED.GENADUL_ITS ---
Discharge Plan Disposition Patient Disposition: Home Discharge Details Clinical Impression: Urinary incontinence, Developmental non-verbal disorder, Head injury Primary Care Provider: Festus Nelson ED Provider: Austin Neville Home Meds and New Rx's Prescriptions: Continued ursodiol 300 mg capsule 600 mg PO HS hydroxyzine HCl 50 mg tablet 50 mg PO DAILY PRN (Reason: Anxiety) Rx Instructions: 50-100 mg at bedtime as needed for sleep trazodone 50 mg tablet 50 mg PO QHS hawthorn extract 150 mg capsule 160 mg PO BID vitamin A 10,000 unit Tablet 10,000 unit PO 1XD fluticasone propionate 50 mcg/actuation spray,suspension 1 spray INTRANASAL DAILY garlic Capsule 180 mg PO BID sodium chloride 7 % solution for nebulization 1 inh INHALATION BID Rx Instructions: Take 1 vial in the morning and 2 vials at night melatonin 3 mg Tablet 3 mg PO HS lactase [Lactaid] 3,000 unit Tablet 1 unit PO PRN PRN midazolam 2 mg/mL syrup 2 mg PO ONCE PRN magnesium glycinate 100 mg magnesium Capsule 200 mg PO BID lacosamide 200 mg Tablet 200 mg PO BID Epidiolex 100 mg/mL solution 400 mg PO BID esomeprazole sodium 40 mg Recon Soln 40 mg DAILY Rx Instructions: 30-60 minutes before breakfast aripiprazole 10 mg tablet 10 mg PO 1XD hydroxyzine HCl 50 mg tablet 50 mg PO TID Rx Instructions: Take at 8AM, 1PM, 6PM cholecalciferol (vitamin D3) 125 mcg (5,000 unit) tablet 125 mcg PO 1XD vitamin K2 100 mcg Capsule 100 mcg PO 1XD omega-3 fatty acids-fish oil 300-1,000 mg capsule 1 cap PO 1XD acetylcysteine 600 mg Capsule 600 mg PO BID famotidine 20 mg tablet 20 mg PO BID ursodiol 300 mg capsule 300 mg PO DAILY AM levalbuterol tartrate [Xopenex HFA] 45 mcg/actuation HFA aerosol inhaler 2 puff INHALATION BID budesonide-formoterol [Symbicort] 160-4.5 mcg/actuation HFA aerosol inhaler 2 puff INHALATION BID Pulmozyme 1 mg/mL solution 2.5 mg INHALATION DAILY [place] 75 mg/mL solution for nebulization 75 mg INHALATION TID Pancreaze 21,000-54,700- 83,900 unit capsule,delayed release(DR/EC) 3 - 5 cap PO QMEALS Rx Instructions: 3 capsules with snacks. 5 capsules with every meal coenzyme Q10 120 mg Capsule 120 mg PO DAILY Discharge Instructions Instructions: Urinary Incontinence (ED) Additional Instructions: At this time there are no obvious findings for causation of patient's urinary incontinence. Please continue to monitor symptoms and follow-up with primary care provider if not improving. If patient develops any new or significant worsening symptoms feel free to return the emergency department for reassessment. Continue to provide appropriate wound care and monitor for signs of infection. Referrals: Festus Nelson MD [Primary Care Provider] - (As needed for reassessment) Discharge Data Discharge Date/Time-TO BE ENTERED AT DEPARTURE: 04/06/23 11:59 Medical Decision Making Patient presenting the emergency department for chief complaint of urinary incontinence and behavioral outburst. Patient has significant contributing medical history of significant autism, nonverbal, seizure disorder. Patient's caregiver staff states that yesterday he had episode of urinary incontinence and worsening behavioral outburst. Patient has had no other complaints and they have not noticed any other abnormal behavior for patient. They did state he during his outburst did strike his head against the floor which is not uncommon for him and has slight abrasions to that they are more concerned about the episode of urinary incontinence with which is abnormal for patient. Physical exam does show forehead abrasion with, otherwise noncontributory exam with no obvious findings. Staff states that patient is not sexually active. Will check urinalysis and GC. It is difficult to obtain full history from patient given that he is nonverbal. Given no specific exam findings of concern including normal genitalia we will hold off on any interventions. Reviewed urinalysis which is unremarkable for any acute signs of infection or concern. Still pending GC testing. Given no other obvious findings and per staff patient at his baseline currently we will discharge patient to have staff continue to monitor patient and follow-up with primary care provider or return for new or worsening symptoms. After discussion of diagnosis and plan of care patient has no further needs, questions, or concerns and states clear understanding to return to the emergency department for any worsening symptoms. This documentation was generated using [employer] dictation system, please disregard any oddities of phrase or misspellings. Lab Data Lab results reviewed: Yes I reviewed the patient's lab results. HPI General Mode of arrival: ambulatory . Date/Time Provider Initiated Documentation: 04/06/23 10:26 . Limitations to Documentation: no limitations . Information obtained by: RN/MD (Patient caregivers) and RN notes reviewed . History of Present Illness 22 year old M presents to the emergency department with the chief complaint of Urinary incontinence, behavioral outburst, described as similar to prior episodes, Patient started experiencing this day(s) (1) and it has been intermittent. Patient notes no other symptoms.. Patient did receive the following treatments prior to arrival, none Related Data Home Medications Medication Instructions Recorded Confirmed hawthorn extract 150 mg capsule 160 mg PO BID 08/02/21 04/06/23 hydroxyzine HCl 50 mg tablet 50 mg PO DAILY PRN Anxiety 08/02/21 04/06/23 trazodone 50 mg tablet 50 mg PO QHS 08/02/21 04/06/23 ursodiol 300 mg capsule 600 mg PO HS 08/02/21 04/06/23 magnesium glycinate 200 mg PO BID 02/19/22 04/06/23 acetylcysteine 600 mg capsule 600 mg PO BID 01/23/23 04/06/23 aripiprazole 10 mg tablet 10 mg PO 1XD 01/23/23 04/06/23 aztreonam lysine 75 mg/mL solution 75 mg inhalation TID 01/23/23 04/06/23 for nebulization ([place]) budesonide-formoterol HFA 160 2 puff inhalation BID 01/23/23 04/06/23 mcg-4.5 mcg/actuation aerosol inhaler (Symbicort) cannabidiol 100 mg/mL oral 400 mg PO BID 01/23/23 04/06/23 solution (Epidiolex) cholecalciferol (vitamin D3) 125 125 mcg PO 1XD 01/23/23 04/06/23 mcg (5,000 unit) tablet coenzyme Q10 120 mg capsule 120 mg PO DAILY 01/23/23 04/06/23 dornase kathryn 1 mg/mL solution for 2.5 mg inhalation DAILY 01/23/23 04/06/23 inhalation (Pulmozyme) esomeprazole sodium 40 mg 40 mg DAILY 01/23/23 01/24/23 intravenous solution famotidine 20 mg tablet 20 mg PO BID 01/23/23 04/06/23 hydroxyzine HCl 50 mg tablet 50 mg PO TID 01/23/23 01/24/23 lacosamide 200 mg tablet 200 mg PO BID 01/23/23 04/06/23 levalbuterol tartrate 45 2 puff inhalation BID 01/23/23 04/06/23 mcg/actuation aerosol inhaler (Xopenex HFA) lipase 21,000-protease 3 - 5 cap PO QMEALS 01/23/23 04/06/23 54,700-amylase 83,900 unit capsule,delayed rel (Pancreaze) omega-3 fatty acids-fish oil 300 1 cap PO 1XD 01/23/23 04/06/23 mg-1,000 mg capsule ursodiol 300 mg capsule 300 mg PO DAILY AM 01/23/23 04/06/23 vitamin K2 100 mcg capsule 100 mcg PO 1XD 01/23/23 04/06/23 fluticasone propionate 50 1 spray intranasal DAILY 01/24/23 04/06/23 mcg/actuation nasal spray,suspension garlic 180 mg PO BID 01/24/23 04/06/23 lactase 3,000 unit tablet (Lactaid) 1 unit PO PRN PRN 01/24/23 04/06/23 melatonin 3 mg tablet 3 mg PO HS 01/24/23 04/06/23 sodium chloride 7 % for 1 inh inhalation BID 01/24/23 04/06/23 nebulization vitamin A 10,000 unit tablet 10,000 unit PO 1XD 01/24/23 04/06/23 midazolam 2 mg/mL oral syrup 2 mg PO ONCE PRN 04/06/23 04/06/23 Allergies Allergy/AdvReac Type Severity Reaction Status Date / Time amoxicillin Allergy Intermediate RASH Verified 04/06/23 10:24 levetiracetam [From Keppra] Allergy Unknown aggression Verified 04/06/23 10:24 ciprofloxacin [From Cipro] Allergy Unverified 01/24/23 11:07 clobazam Allergy Unverified 04/06/23 10:24 lamotrigine Allergy Unverified 04/06/23 10:24 elexacaftor [From Trikafta] AdvReac Severe Verified 01/24/23 11:07 ivacaftor [From Symdeko] AdvReac Severe Verified 04/06/23 10:24 tezacaftor [From Symdeko] AdvReac Severe Verified 04/06/23 10:24 Benzodiazepines AdvReac Intermediate Verified 04/06/23 10:24 latex AdvReac Unknown RASH Verified 04/06/23 10:24 montelukast [From Singulair] AdvReac Behavioral Verified 04/06/23 10:24 side effects General Stated Complaint: Urinary MARINA: 4 Review of Systems Constitutional Constitutional: Denies chills, Denies fever(s) and Denies malaise ENT Ears, Nose, Mouth, and Throat: Denies nasal congestion and Denies sore throat Cardiovascular Cardiovascular: Denies chest pain, Denies syncope and Denies dyspnea Respiratory Respiratory: Denies cough and Denies dyspnea Gastrointestinal Gastrointestinal: Denies abdominal pain, Denies nausea and Denies vomiting Genitourinary Genitourinary: Denies dysuria and Reports urinary incontinence Integumentary/Breasts Skin/Breast: Denies rash Neurologic Neurologic: Reports behavioral changes, Denies syncope and Denies convulsions Psychiatric Psychiatric: Reports behavioral changes PFS All Active Problems Urinary incontinence (Acute) Head injury (Acute) Obstipation (Acute) Developmental non-verbal disorder (Acute) Well adult health check (Acute) Bipolar disorder, unspecified (Acute) Psychiatry evaluation at [facility] -01/17/2021 Seizure disorder (Chronic) [id number] deficiency (Chronic) Medical History Learning problem Dxekm-[id number] deficiency Surgical History splinter removal Family History Mother Hyperlipidemia Sister Asthma Grandparent Essential hypertension Heart disease Hyperlipidemia Social History Smoking/Tobacco Use Status: Never Smoking risk assessment performed?: Yes Alcohol Intake: never Drug use: Never Substance use type: does not use Household members: family Housing: house Pets and animals: Yes (1 dog at mom's, 1 dog at dad's and outdoor cats) Pets and animals: cat(s) and dog(s) Do you feel safe at home: Yes Do you feel safe in your relationship?: Yes Additional Social history: 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[facility] [place], [employer]ice [employer] care staff Exam Const General: cooperative and no acute distress Orientation: alert and awake HENMT Head: abrasion Resp Effort & Inspection: normal respiratory effort Auscultation: clear to auscultation bilaterally Cardio Rate: regular rate Rhythm: regular rhythm Heart Sounds: S1 normal and S2 normal GI Palpation: nontender Male General Exam: Yes normal external exam Neuro General: patient alert and patient awake Extrem General: capillary refill normal Course Vital Signs Vital signs: Vital Signs Temperature 36.8 C 04/06/23 10:19 Pulse 63 04/06/23 10:19 Respiratory Rate 18 04/06/23 10:19 Blood Pressure 124/70 04/06/23 10:19 Pulse Oximetry 95 04/06/23 10:19 Temperature 36.8 C 04/06/23 10:19 Temperature Source Skin 04/06/23 10:19 Pulse 82 04/06/23 10:33 Respiratory Rate 14 04/06/23 10:33 Respiratory Effort Normal 04/06/23 10:22 Blood Pressure 124/70 04/06/23 10:19 Blood Pressure Position Sitting 04/06/23 10:19 Pulse Oximetry 98 04/06/23 10:33 Oxygen Delivery Method Room Air 04/06/23 10:33 Oxygen Flow Rate 0 04/06/23 10:19 Comment Pt is non verbal. All assessment and questions done through his caregiver 04/06/23 10:33 Lab/Test Results Lab/Test Results: Laboratory Tests Range/Units 04/06/23 11:14 Urine Color (Yellow) Yellow Urine Clarity (Clear) Clear Urine pH (5-8) 7.0 Ur Specific [place] (1.005-1.025) 1.010 Urine Protein (Negative) mg/dL Negative Urine Ketones (Negative) mg/dL Negative Urine Blood (Negative) Negative Urine Nitrite (Negative) Negative Urine Bilirubin (Negative) Negative Urine Urobilinogen (Up to 0.2) mg/dL 0.2 Ur Leukocyte Esterase (Negative) Negative Urine Glucose (Negative) mg/dL Negative
[2023-04-08 14:12] LABS: Chlamydia Result Negative (Negative); GC Result Negative (Negative)
== END 2023-04-06 11:59 | disposition home or self-care (01) ==
PROVIDERS: Emergency Provider Nurse Practitioner Family; PCP Pediatrics
DX: R32 Unspecified urinary incontinence (principal); F80.9 Developmental disorder of speech and language, unspecified
CPT/HCPCS: 87491; 87591; 99281; 81003; 99282

== ENCOUNTER 2023-04-11 03:20 | Outpatient (CLI) | payer MEDICAID, SELFPAY ==
[2023-04-11 16:23] LABS: Abs Immature Grans 0.02 10^3/uL (0.0-0.06); Absolute Basophil Count 0.05 10^3/uL (0.0-0.2); Absolute Eosinophil Count 0.18 10^3/uL (0.0-0.7); Absolute Lymphocyte Count 1.03 10^3/uL (1.2-3.4); Absolute Monocyte Count 0.41 10^3/uL (0.1-0.8); Absolute Neutrophil Count 6.01 10^3/uL (1.2-6.7); Basophils % 0.6; Eosinophils % 2.3; HCT 42.5 % (40.0-50.0); HGB 14.1 g/dL (13.5-17.5); Immature Grans % 0.3; Lymphocytes % 13.4; MCH 28.7 pg (27.0-33.0); MCHC 33.2 % (32.0-36.0); MCV 86 fL (80-95); MPV 10.6 fL (8.0-11.0); Monocytes % 5.3; Neutrophils % 78.1; Platelet Count 108 10^3/uL (130-400); RBC 4.92 10^6/uL (4.36-5.78); RDW 13.2 % (11.8-14.1); RDW-SD 41.7 fL
[2023-04-11 16:47] LABS: INR 1.2 (0.9-1.1); Prothrombin Time 11.6 sec (9.1-11.1)
[2023-04-11 17:01] LABS: ALT 60 U/L (16-63); AST 36 U/L (15-37); Albumin 3.6 g/dL (3.4-5.0); Alkaline Phosphatase 364 U/L (46-116); BUN 11 mg/dL (7-18); Bilirubin, Direct 0.4 mg/dL (0.0-0.2); Bilirubin, Total 0.9 mg/dL (0.2-1.0); Calcium 9.5 mg/dL (8.5-10.1); Chloride 105 mmol/L (98-107); Estimated GFR 108.46 (mL/min/1.73m2); Glucose 171 mg/dL (74-106); Potassium 3.8 mmol/L (3.5-5.1); Sodium 142 mmol/L (136-145); Total Protein 7.9 g/dL (6.4-8.2)
[2023-04-14 08:33] LABS: AFP Tumor Marker <2.5 ng/mL (<8.1)
[2023-04-15 21:09] LABS: Free Retinol (Vitamin A) 27.3 mcg/dL (32.5-78.0)
== END 2023-04-11 03:21 | disposition home or self-care (01) ==
LOC: LBO 03:20
PROVIDERS: Psychiatry & Neurology Behavioral Neurology & Neuropsychiatry; PCP Pediatrics; Visit Provider Internal Medicine Gastroenterology
DX: E84.8 Cystic fibrosis with other manifestations (principal); K75.9 Inflammatory liver disease, unspecified
CPT/HCPCS: 36415; 80053; 80076; 82105; 84590; 85025; 85610

== ENCOUNTER 2023-05-21 02:41 | Outpatient (CLI) | payer MEDICAID, SELFPAY ==
[2023-05-21 08:26] LABS: ALT 56 U/L (16-63); AST 37 U/L (15-37); Albumin 3.4 g/dL (3.4-5.0); Alkaline Phosphatase 298 U/L (46-116); Bilirubin, Direct 0.4 mg/dL (0.0-0.2); Bilirubin, Total 1.1 mg/dL (0.2-1.0); Total Protein 7.5 g/dL (6.4-8.2)
== END 2023-05-21 02:42 | disposition home or self-care (01) ==
PROVIDERS: PCP Pediatrics; Visit Provider Psychiatry & Neurology Behavioral Neurology & Neuropsychiatry
DX: G40.309 Generalized idiopathic epilepsy and epileptic syndromes, not intractable, without status epilepticus (principal); Z79.899 Other long term (current) drug therapy; R94.5 Abnormal results of liver function studies
CPT/HCPCS: 36415; 80076

== ENCOUNTER 2023-06-04 04:16 | Outpatient (CLI) | payer MEDICAID, SELFPAY ==
[2023-06-04 08:11] LABS: ESR 22 mm/hr (0-15)
[2023-06-04 08:49] LABS: Iron 80 ug/dL (65-175); Total Iron Binding Capacity 367 ug/dL (250-450); Transferrin Sat 22 % (20-55)
[2023-06-04 09:02] LABS: C-Reactive Protein 0.65 mg/dL (0.0-0.3); FREE T4 0.85 ng/dL (0.76-1.46); Ferritin 56 ng/mL (26-388); Magnesium 1.8 mg/dL (1.8-2.4); TSH 1.57 uIU/mL (0.36-3.74)
[2023-06-04 12:55] LABS: Abs Immature Grans 0.01 10^3/uL (0.0-0.06); Absolute Basophil Count 0.05 10^3/uL (0.0-0.2); Absolute Eosinophil Count 0.12 10^3/uL (0.0-0.7); Absolute Lymphocyte Count 1.07 10^3/uL (1.2-3.4); Absolute Monocyte Count 0.25 10^3/uL (0.1-0.8); Absolute Neutrophil Count 2.14 10^3/uL (1.2-6.7); Basophils % 1.4; Eosinophils % 3.3; HCT 42.5 % (40.0-50.0); HGB 14.1 g/dL (13.5-17.5); Immature Grans % 0.3; Lymphocytes % 29.4; MCH 28.7 pg (27.0-33.0); MCHC 33.2 % (32.0-36.0); MCV 87 fL (80-95); Monocytes % 6.9; Neutrophils % 58.7; Platelet Count 103 10^3/uL (130-400); RBC 4.91 10^6/uL (4.36-5.78); RDW 13.4 % (11.8-14.1); RDW-SD 42.4 fL; WBC 3.64 10^3/uL (4.4-10.8)
[2023-06-04 13:13] LABS: ALT 72 U/L (16-63); AST 52 U/L (15-37); Albumin 3.4 g/dL (3.4-5.0); Alkaline Phosphatase 331 U/L (46-116); Anion Gap 9.2 mmol/L (3-11); BUN 14 mg/dL (7-18); Bilirubin, Total 0.8 mg/dL (0.2-1.0); CO2 25.8 mmol/L (21.0-32.0); CREATININE 0.8 mg/dL (0.70-1.30); Calcium 9.5 mg/dL (8.5-10.1); Chloride 107 mmol/L (98-107); Estimated GFR 127.53 (mL/min/1.73m2); GGT 170 U/L (15-85); Glucose 113 mg/dL (74-106); Sodium 142 mmol/L (136-145); Total Protein 7.5 g/dL (6.4-8.2)
[2023-06-05 10:04] LABS: Lyme Ab w Rflx to Lyme Confirm Negative (Negative)
[2023-06-06 09:33] LABS: IgE 13 IU/mL (<158)
[2023-06-09 15:56] LABS: 1,25-Dihydroxyvitamin D 18 pg/mL (18-64)
== END 2023-06-04 04:17 | disposition home or self-care (01) ==
LOC: LBO 04:17
PROVIDERS: Student in an Organized Health Care Education/Training Program; PCP Pediatrics; Visit Provider Family Medicine
DX: R10.9 Unspecified abdominal pain (principal); K59.00 Constipation, unspecified; D64.9 Anemia, unspecified; R56.9 Unspecified convulsions; E84.8 Cystic fibrosis with other manifestations; R79.89 Other specified abnormal findings of blood chemistry; R79.82 Elevated C-reactive protein (CRP); Z79.899 Other long term (current) drug therapy; Z13.88 Encounter for screening for disorder due to exposure to contaminants; Z11.8 Encounter for screening for other infectious and parasitic diseases; Z01.84 Encounter for antibody response examination; R70.0 Elevated erythrocyte sedimentation rate
CPT/HCPCS: 36415; 80053; 82533; 85652; 82652; 82728; 82785; 82977; 83540; 83550; 83655; 83735; 84439; 84443; 85025; 86140; 86618

== ENCOUNTER 2023-06-11 20:02 | Emergency (ER) | payer MEDICAID, SELFPAY ==
--- NOTE | 2023-06-11 20:00 | DI.CT_ITS ---
Exam(s) CT HEAD WO EXAM: CT HEAD WO CLINICAL HISTORY: History of fall. TECHNIQUE: Imaging Protocol: Axial computed tomography images with coronal and sagittal reformatted images were created and reviewed COMPARISON: CT CT HEAD WO from 03/19/2023 FINDINGS: There are no skull fractures. Again noted is opacification of the maxillary sinuses, sphenoid sinuses , ethmoidal air cells, and hypoplastic frontal sinuses. There is evidence of previous surgical defec ts in the medial harris of both maxillary sinuses. There is no evidence of intracranial hemorrhage, mass effect, or shift of midline structures. There are no extra-axial fluid collections. The ventricles are not enlarged or shifted and there is no blo od within the ventricular system nor within the basal cisterns. IMPRESSION: No acute intracranial findings on this noninfused CT scan of the brain. Advanced chronic sinus disease again noted with evidence of previous bilateral medial antrectomies. Suspect polyposis. RADIATION DOSE DELIVERED: 777.31mGy.cm Total DLP DATA REPOSITORY: All CT scans at this facility are submitted to the National Radiology Data Registry (NRDR) Dose Index Registry (DIR) with the [employer] (ACR). RADIATION OPTIMIZATION: All CT scans at this facility use at least one of these dose optimization te chniques: automated exposure control; mA and/or kV adjustment per patient size (includes targeted exa ms where dose is matched to clinical indication); or iterative reconstruction.
--- NOTE | 2023-06-11 20:00 | RT.EKG_ITS ---
APPROVED REPORT Exam: Resting ECG Reason for Exam: FALL Patient Location: E HR:88 bpm ECG Measurements Heart Rate 88 AXIS DC 149 P 44 QRSd 96 QRS 77 QT 360 T 69 QTc 435 Conclusion Sinus rhythm...normal P axis, V-rate 60- 99 Narrow complex normal sinus rhythm at a rate of 88. Normal axis. Intervals within normal limits. N o ST segment abnormalities. T wave flattening in aVL. No T wave inversions. Appears similar compar ed to prior dated last year.
[2023-06-11 20:05] VITALS: BP 137/89; PULSE 82; RESP 16; TEMP 36.4; O2SAT 96
--- NOTE | 2023-06-11 20:09 | ED.GENADUL_ITS ---
HPI General Date/Time Provider Initiated Documentation: 06/11/23 20:07 . HPI Narrative: MDM This is an overall well-appearing afebrile and not tachycardic 22-year-old male with breakthrough seizure and left facial laceration which will require primary closure following irrigation and CT head. Patient's tetanus has been updated just over 1 year ago send indication for repeat tetanus. Patient does seemingly have seizures every several weeks to months. Given precipitant of increased activity today will defer changing the patient's antiseizure medications. He had normal fingerstick blood glucose. His ECG is nonischemic. Will obtain a troponin and electrolytes to assess for any acute abnormalities which could have precipitated his seizures. Care providers do note that the patient was more active than usual today and this is certainly could have triggered his breakthrough seizure. He has no signs of chest trauma and is not hypoxic so I did not obtain CT chest. He has not been ambulatory since his fall so we will complete a p.o. and ambulatory trial. No afferent pupillary defect nor proptosis to suggest need for lateral canthotomy. Laceration was well removed from the patient's lacrimal sac so as not concern for lacrimal sac injury. 9:57 PM Patient tolerated p.o. ambulatory trial in the ED. I met with his care providers we discussed return for recurrent seizures any foul-smelling drainage or fevers. Caregivers understood return indications and patient will have outpatient follow-up in 7 to 10 days to have his sutures removed. No tenderness of bilateral upper and lower extremities on reassessment. Chronic conditions affecting the care of the patient: Seizure history and CF History obtained from an outside historian: Paramedics and patient's home care providers External record review: N/A Diagnostic interpretations performed by me: Per my independent interpretation EKG shows: Narrow complex normal sinus rhythm at a rate of 88. Normal axis. Intervals within normal limits. No ST segment abnormalities. T wave flattening in aVL. No T wave inversions. Appears similar compared to prior dated last year. ]Medications: N/A Social determinants of health affecting disposition: N/A Management discussed with: N/A Treatment/interventions considered: N/A Response to therapies provided: N/A HPI This is a 22-year-old male with history of autism and seizures arriving to the emergency department via paramedics in the setting of a seizure. Patient's home care providers report that the patient had a more active day than usual yesterday. He has been adherent with his home medications and not missed any doses. He takes lacosamide for seizures. He reportedly at 7:25 PM this evening had a 45-second seizure in which she fell to the ground lost consciousness and sustained a laceration to the left side of his face lateral to his left eyebrow. Care providers noted his seizure and subsequently administered 2.5 mg of midazolam which they have as needed following seizures. They were planning on observing him at home however his laceration concerned his home care providers and so they called paramedics. Patient has not been ambulatory since his seizure. Care providers report report that healing abrasion to the center of the patient's forehead is chronic. Exam General: Well-appearing in no acute distress handling secretions protecting airway. Head: Normocephalic, left-sided the patient's face there is a hemostatic approximately 2 cm laceration. There is a healing abrasion in the center of the patient's forehead at his hairline that does not appear to be infected. Eye:[Pupils equal, round reactive to light.] Extraocular eye movements intact. No conjunctival injection. No scleral icterus. Ear, nose, mouth, throat: Grossly normal inspection beyond facial laceration noted above and had section. Neck: Trachea midline. Cardiovascular: Well-perfused distal extremities. Regular rate and rhythm. Respiratory: Nonlabored respiration. Clear lungs bilaterally. Gastrointestinal: Nondistended abdomen. Soft nontender. Musculoskeletal: No edema. Moving all 4 extremities spontaneously. Nontender upper and lower extremities bilaterally. Skin: Normal for age and race, grossly normal temperature and turgor. No acute rash. Neurologic: Alert and tracking with eyes. Nonverbal at baseline, no apparent acute deficits. GCS 13: E4, V3, M6. Care providers report this is baseline. Related Data Home Medications Medication Instructions Recorded Confirmed hawthorn extract 150 mg capsule 160 mg PO BID 08/02/21 06/11/23 hydroxyzine HCl 50 mg tablet 50 mg PO DAILY PRN Anxiety 08/02/21 06/11/23 trazodone 50 mg tablet 50 mg PO QHS 08/02/21 06/11/23 ursodiol 300 mg capsule 600 mg PO HS 08/02/21 06/11/23 magnesium glycinate 200 mg PO BID 02/19/22 06/11/23 acetylcysteine 600 mg capsule 600 mg PO BID 01/23/23 06/11/23 aripiprazole 10 mg tablet 10 mg PO 1XD 01/23/23 06/11/23 aztreonam lysine 75 mg/mL solution 75 mg inhalation TID 01/23/23 06/11/23 for nebulization ([place]) budesonide-formoterol HFA 160 2 puff inhalation BID 01/23/23 06/11/23 mcg-4.5 mcg/actuation aerosol inhaler (Symbicort) cannabidiol 100 mg/mL oral 400 mg PO BID 01/23/23 06/11/23 solution (Epidiolex) cholecalciferol (vitamin D3) 125 125 mcg PO 1XD 01/23/23 06/11/23 mcg (5,000 unit) tablet coenzyme Q10 120 mg capsule 120 mg PO DAILY 01/23/23 06/11/23 dornase kathryn 1 mg/mL solution for 2.5 mg inhalation DAILY 01/23/23 06/11/23 inhalation (Pulmozyme) esomeprazole sodium 40 mg 40 mg DAILY 01/23/23 01/24/23 intravenous solution famotidine 20 mg tablet 20 mg PO BID 01/23/23 06/11/23 hydroxyzine HCl 50 mg tablet 50 mg PO TID 01/23/23 06/11/23 lacosamide 200 mg tablet 200 mg PO BID 01/23/23 06/11/23 levalbuterol tartrate 45 2 puff inhalation BID 01/23/23 06/11/23 mcg/actuation aerosol inhaler (Xopenex HFA) lipase 21,000-protease 3 - 5 cap PO QMEALS 01/23/23 06/11/23 54,700-amylase 83,900 unit capsule,delayed rel (Pancreaze) omega-3 fatty acids-fish oil 300 1 cap PO 1XD 01/23/23 06/11/23 mg-1,000 mg capsule ursodiol 300 mg capsule 300 mg PO DAILY AM 01/23/23 06/11/23 vitamin K2 100 mcg capsule 100 mcg PO 1XD 01/23/23 06/11/23 fluticasone propionate 50 1 spray intranasal DAILY 01/24/23 06/11/23 mcg/actuation nasal spray,suspension garlic 180 mg PO BID 01/24/23 06/11/23 melatonin 3 mg tablet 3 mg PO HS 01/24/23 06/11/23 sodium chloride 7 % for 1 inh inhalation BID 01/24/23 06/11/23 nebulization vitamin A 10,000 unit tablet 10,000 unit PO 1XD 01/24/23 06/11/23 midazolam 2 mg/mL oral syrup 2 mg PO ONCE PRN 04/06/23 06/11/23 Allergies Allergy/AdvReac Type Severity Reaction Status Date / Time amoxicillin Allergy Intermediate RASH Verified 04/06/23 10:24 levetiracetam [From Keppra] Allergy Unknown aggression Verified 04/06/23 10:24 ciprofloxacin [From Cipro] Allergy Unverified 01/24/23 11:07 clobazam Allergy Unverified 04/06/23 10:24 lamotrigine Allergy Unverified 04/06/23 10:24 elexacaftor [From Trikafta] AdvReac Severe Verified 01/24/23 11:07 ivacaftor [From Symdeko] AdvReac Severe Verified 04/06/23 10:24 tezacaftor [From Symdeko] AdvReac Severe Verified 04/06/23 10:24 Benzodiazepines AdvReac Intermediate Verified 04/06/23 10:24 latex AdvReac Unknown RASH Verified 04/06/23 10:24 montelukast [From Singulair] AdvReac Behavioral Verified 04/06/23 10:24 side effects General MARINA: 4 Procedures Laceration Laceration 1: Site: face Side (If applicable): left Size (cm): 2.5 Description: linear Depth: simple, single layer Local Anesthetic: other anesthetic (LET) Pre-repair: irrigated extensively Skin layer closed with: nylon Size (cm): 5-0 (Prolene) Number of sutures: 4 Technique: simple, interrupted Medical Decision Making Quality:SDOH Health Related Social Needs: No Data to Display PFSH All Active Problems (Updated 06/11/23 @ 21:50 by Marco A Qureshi MD) Face lacerations (Acute) Breakthrough seizure (Acute) Obstipation (Acute) Developmental non-verbal disorder (Acute) Well adult health check (Acute) Bipolar disorder, unspecified (Acute) Psychiatry evaluation at [facility] -01/17/2021 Seizure disorder (Chronic) Nonmo-2-tnulpwvcycb deficiency (Chronic) Medical History Learning problem Wfxre-9-bitrhmzkomk deficiency Surgical History splinter removal Family History Mother Hyperlipidemia Sister Asthma Grandparent Essential hypertension Heart disease Hyperlipidemia Social History Smoking/Tobacco Use Status: Never Smoking risk assessment performed?: Yes Alcohol Intake: never Drug use: Never Substance use type: does not use Household members: family Housing: house Pets and animals: Yes (1 dog at mom's, 1 dog at dad's and outdoor cats) Pets and animals: cat(s) and dog(s) Do you feel safe at home: Yes Do you feel safe in your relationship?: Yes Additional Social history: 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[facility], 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 Discharge Plan Disposition Patient Disposition: Home Discharge Details Clinical Impression: Breakthrough seizure, Face lacerations Primary Care Provider: Festus Nelson ED Provider: Marco A Qureshi [place] Meds and New Rx's Prescriptions: Continued ursodiol 300 mg capsule 600 mg PO HS hydroxyzine HCl 50 mg tablet 50 mg PO DAILY PRN (Reason: Anxiety) Rx Instructions: 50-100 mg at bedtime as needed for sleep trazodone 50 mg tablet 50 mg PO QHS hawthorn extract 150 mg capsule 160 mg PO BID vitamin A 10,000 unit Tablet 10,000 unit PO 1XD fluticasone propionate 50 mcg/actuation spray,suspension 1 spray INTRANASAL DAILY garlic Capsule 180 mg PO BID sodium chloride 7 % solution for nebulization 1 inh INHALATION BID Rx Instructions: Take 1 vial in the morning and 2 vials at night melatonin 3 mg Tablet 3 mg PO HS midazolam 2 mg/mL syrup 2 mg PO ONCE PRN magnesium glycinate 100 mg magnesium Capsule 200 mg PO BID lacosamide 200 mg Tablet 200 mg PO BID Epidiolex 100 mg/mL solution 400 mg PO BID esomeprazole sodium 40 mg Recon Soln 40 mg DAILY Rx Instructions: 30-60 minutes before breakfast aripiprazole 10 mg tablet 10 mg PO 1XD hydroxyzine HCl 50 mg tablet 50 mg PO TID Rx Instructions: Take at 8AM, 1PM, 6PM cholecalciferol (vitamin D3) 125 mcg (5,000 unit) tablet 125 mcg PO 1XD vitamin K2 100 mcg Capsule 100 mcg PO 1XD omega-3 fatty acids-fish oil 300-1,000 mg capsule 1 cap PO 1XD acetylcysteine 600 mg Capsule 600 mg PO BID famotidine 20 mg tablet 20 mg PO BID ursodiol 300 mg capsule 300 mg PO DAILY AM levalbuterol tartrate [Xopenex HFA] 45 mcg/actuation HFA aerosol inhaler 2 puff INHALATION BID budesonide-formoterol [Symbicort] 160-4.5 mcg/actuation HFA aerosol inhaler 2 puff INHALATION BID Pulmozyme 1 mg/mL solution 2.5 mg INHALATION DAILY [place] 75 mg/mL solution for nebulization 75 mg INHALATION TID Pancreaze 21,000-54,700- 83,900 unit capsule,delayed release(DR/EC) 3 - 5 cap PO QMEALS Rx Instructions: 3 capsules with snacks. 5 capsules with every meal coenzyme Q10 120 mg Capsule 120 mg PO DAILY Discharge Instructions Instructions: Recurrent Seizures in Adults (ED), Facial Laceration (ED) Additional Instructions: You were seen in the emergency department for your facial laceration which was closed with sutures that will need to be removed in 7 to 10 days. As we discussed, please keep your wound clean, dry and covered. Please do not soak in a tub, swim or engage in any activities which could introduce dirt into your wound. You may return to the emergency department, go to urgent care or go to your primary care provider in 7 to 10 days to have your stitches removed. As we discussed if you develop any foul-smelling drainage fevers streaking signs of infection or have any other concerns please return to the emergency department. For your pain please take medications as follows: 1. Take ibuprofen (Advil), 400 mg every 6 hours.
[2023-06-11 20:17] LABS: Abs Immature Grans 0.01 10^3/uL (0.0-0.06); Absolute Basophil Count 0.04 10^3/uL (0.0-0.2); Absolute Eosinophil Count 0.16 10^3/uL (0.0-0.7); Absolute Lymphocyte Count 1.05 10^3/uL (1.2-3.4); Absolute Neutrophil Count 3.44 10^3/uL (1.2-6.7); Basophils % 0.8; Eosinophils % 3.1; HCT 42.5 % (40.0-50.0); HGB 14.2 g/dL (13.5-17.5); Immature Grans % 0.2; Lymphocytes % 20.6; MCH 29.1 pg (27.0-33.0); MCHC 33.4 % (32.0-36.0); MCV 87 fL (80-95); MPV 10.1 fL (8.0-11.0); Monocytes % 7.8; Neutrophils % 67.5; RBC 4.88 10^6/uL (4.36-5.78); RDW 13.5 % (11.8-14.1); RDW-SD 42.9 fL
[2023-06-11 20:32] LABS: Anion Gap 9.8 mmol/L (3-11); BUN 13 mg/dL (7-18); CO2 27.2 mmol/L (21.0-32.0); CREATININE 1.1 mg/dL (0.70-1.30); Calcium 9.4 mg/dL (8.5-10.1); Chloride 104 mmol/L (98-107); Estimated GFR 96.74 (mL/min/1.73m2); Glucose 131 mg/dL (74-106); Potassium 4.2 mmol/L (3.5-5.1); Sodium 141 mmol/L (136-145); Troponin I < 50 ng/L (< or =60)
[2023-06-11 20:38] LABS: Diff Comment Diff Reviewed; Platelet Count 93 10^3/uL (130-400); RBC Morphology Normal
--- NOTE | 2023-06-11 20:57 | DI.VRAD_ITS ---
PROCEDURE INFORMATION: Exam: CT Head Without Contrast Exam date and time: 06/11/2023 8:28 PM Age: 22 years old Clinical indication: Other: History of fall TECHNIQUE: Imaging protocol: Computed tomography of the head without contrast. COMPARISON: CT HEAD WO 03/19/2023 7:09 PM FINDINGS: Brain: No acute intracranial hemorrhage, mass-effect, midline shift, or extra-axial collection is seen. The davison white matter differentiation appears preserved. No acute intracranial hemorrhage, mass-effect, midline shift, or extra-axial collection is seen. The davison white matter differentiation appears preserved. Cerebral ventricles: The ventricular system and basilar cisterns appear appropriate in size and configuration. Paranasal sinuses: There is extensive heterogeneous mucoperiosteal thickening throughout the paranasal sinuses, similar in appearance on the comparison exam from March 19, 2023. There appears to have been prior sinus surgery. Correlation with surgical history is recommended. Mastoid air cells: The mastoid air cells appear well-aerated. Auditory system: The middle ear cavities appear clear. Orbital cavities: The globes and intraorbital structures appear grossly intact. Bones/joints: The bony calvarium appears intact. No depressed skull fracture is seen. Soft tissues: No gross focal scalp hematoma is seen. IMPRESSION: 1. No acute intracranial hemorrhage or depressed skull fracture. 2. Severe chronic sinusitis, also seen on the comparison exam from March 19, 2023. Suspected prior sinus surgery. Correlation with surgical history recommended. If not previously evaluated by ENT, ENT follow-up would be recommended for further evaluation. Dictated and Authenticated by: Brandon Damian MD. Ordering:JAYE Strickland MD
[2023-06-11 21:57] VITALS: BP 115/72; PULSE 72; RESP 16; TEMP 37; O2SAT 99
[2023-06-11] MEDS: Ibuprofen 600 MG TAB PO (22:04)
[2023-06-11] MEDS: Normal Saline 500 ML IV (22:05)
[2023-06-11] MEDS: Lidocaine/Epinephri/Tetracaine Topical Gel 3 ML TP (22:05)
== END 2023-06-11 22:10 | disposition home or self-care (01) ==
PROVIDERS: Emergency Provider Emergency Medicine; PCP Pediatrics
DX: G40.909 Epilepsy, unspecified, not intractable, without status epilepticus (principal); S01.112A Laceration without foreign body of left eyelid and periocular area, initial encounter; E88.01 Alpha-1-antitrypsin deficiency; W18.39XA Other fall on same level, initial encounter; Y93.89 Activity, other specified; Y92.098 Other place in other non-institutional residence as the place of occurrence of the external cause
CPT/HCPCS: 12011; 36415; 80048; 82962; 93005; 99284; 70450; 84484; 85025; 93010

== ENCOUNTER 2023-06-16 04:23 | Outpatient (CLI) | payer MEDICAID, SELFPAY ==
[2023-06-16 13:02] LABS: INR 1.2 (0.9-1.1); Prothrombin Time 11.8 sec (9.1-11.1)
[2023-06-16 13:16] LABS: Glucose, 2 Hour PP 143 mg/dL
[2023-06-18 22:19] LABS: Zinc, S 67 mcg/dL (60-106)
[2023-06-20 10:01] LABS: Vitamin E, Serum 9.1 mg/L (5.5 - 17.0)
[2023-06-21 15:44] LABS: Free Retinol (Vitamin A) 23.9 mcg/dL (32.5-78.0)
== END 2023-06-16 04:24 | disposition home or self-care (01) ==
PROVIDERS: PCP Pediatrics; Visit Provider Student in an Organized Health Care Education/Training Program
DX: E84.9 Cystic fibrosis, unspecified (principal)
CPT/HCPCS: 36415; 84630; 82947; 84446; 84590; 85610

== ENCOUNTER 2023-07-21 10:29 | Outpatient (CLI) | payer MEDICAID, SELFPAY ==
--- NOTE | 2023-07-21 10:30 | RT.EKG_ITS ---
APPROVED REPORT Exam: Resting ECG Reason for Exam: At Risk for Prolonged QT Interval Syndrome Patient Location: O HR:62 bpm ECG Measurements Heart Rate 62 AXIS [place] 152 P 32 QRSd 100 QRS 75 QT 402 T 64 QTc 409 Conclusion Sinus rhythm...normal P axis, V-rate 50- 99 Normal Electrocardiogram
== END 2023-07-21 10:30 | disposition home or self-care (01) ==
LOC: CARDOPNVT 10:29
PROVIDERS: PCP Pediatrics; Visit Provider Internal Medicine Gastroenterology
DX: I45.81 Long QT syndrome (principal)
CPT/HCPCS: 93005; 93010

== ENCOUNTER → 2023-10-10 04:14 | Outpatient (CLI) | payer MEDICAID, SELFPAY ==
--- NOTE | 2023-10-10 | DI.RAD_ITS ---
Exam(s) XR CHEST 2V PA LATERAL EXAM: XR CHEST 2V PA LATERAL CLINICAL HISTORY: CYSTIC FIBROSIS, E84.9 WORSENING PULMONARY SYMPTOMS/OXYGENATION TECHNIQUE: 2D digital imaging was performed of the chest. Two images were obtained. PA and lateral views were obtained. COMPARISON: CT CT CHEST/ABD/PEL W from 01/23/[address] PELVIC WO from 01/23/2023 FINDINGS: MEDIASTINUM: Normal. HEART: Normal. PULMONARY VASCULATURE: Normal. LUNGS: There is a bilateral diffuse interstitial process in the lungs bilaterally. There does appear to be some bronchial wall thickening particularly centrally and in the upper lobes consistent with t he patient's history of cystic fibrosis. No focal consolidating infiltrates are present. PLEURAL SPACE: No pleural effusion or pneumothorax. BONE:Within normal limits for the patient's age. OTHER FINDINGS:Normal. IMPRESSION: 1. Bronchial wall thickening seen predominantly in the upper lobes consistent with the patient's hist ory of cystic fibrosis. 2. There is also diffuse interstitial process, right greater than left suspicious for edema or pneumo asiya. Please correlate clinically. 3. No focal consolidating infiltrates are present. DATA REPOSITORY: RADIATION DOSE DELIVERED:
== END ==
PROVIDERS: PCP Pediatrics; Visit Provider Student in an Organized Health Care Education/Training Program
DX: E84.9 Cystic fibrosis, unspecified (principal)
CPT/HCPCS: 71046

== ENCOUNTER → 2023-11-05 02:01 | Outpatient (CLI) | payer MEDICAID, SELFPAY ==
--- NOTE | 2023-11-05 | DI.US_ITS ---
Exam(s) US ABDOMEN LIMITED EXAM: US ABDOMEN LIMITED CLINICAL HISTORY: CYSTIC FIBROSIS, E84.9,BILIARY CIRRHOSIS,K74.5,SCREENING FOR HCC TECHNIQUE: Ultrasound abdomen performed using standard protocol. COMPARISON: US US ABDOMEN from 10/22/[address] ABDOMEN PELVIS W from 01/23/[address] PELVIC WO from 01/23/2023 FINDINGS: There is no ascites evident. LIVER: Liver exhibits cirrhotic appearance but without discrete focal hepatic lesions. GALLBLADDER/BILIARY: There are no gallstones. No gallbladder wall edema nor pericholecystic fluid. The common hepatic duct isnot dilated, measuring 2-3mm at the level of rubi hepatis. PANCREAS: Pancreas bed is very hyperechoic this age group and this corresponds to the pancreatic atro phy evident on the CT scan of January 2023. RIGHT KIDNEY:No evidence of solid mass, calculus, nor hydronephrosis. No cortical cysts evident. IMPRESSION: 1. Hepatic cirrhosis again noted, as evident on prior CT scan of January 2023. Please note that p rior CT scan also revealed splenomegaly and varices. The spleen was not scanned on today's ultrasoun d as it was specifically ordered as a right upper quadrant ultrasound. 2. The appearance of the pancreas is that of advanced atrophy, as also evident on the prior CT scan. Correlation with when any history of cystic fibrosis/ mucoviscidosis is recommended. 3. There is no ascites. DATA REPOSITORY:
== END ==
PROVIDERS: PCP Pediatrics; Visit Provider Internal Medicine Gastroenterology
DX: E84.9 Cystic fibrosis, unspecified (principal); K74.5 Biliary cirrhosis, unspecified
CPT/HCPCS: 76705

== ENCOUNTER 2024-05-24 03:16 | Outpatient (CLI) | payer MEDICAID, SELFPAY ==
[2024-05-24 17:11] LABS: Abs Immature Grans 0.02 10^3/uL (0.0-0.06); Absolute Basophil Count 0.06 10^3/uL (0.0-0.2); Absolute Eosinophil Count 0.16 10^3/uL (0.0-0.7); Absolute Lymphocyte Count 1.17 10^3/uL (1.2-3.4); Absolute Monocyte Count 0.43 10^3/uL (0.1-0.8); Absolute Neutrophil Count 4.22 10^3/uL (1.2-6.7); Eosinophils % 2.6 %; HCT 41.9 % (40.0-50.0); HGB 13.9 g/dL (13.5-17.5); Immature Grans % 0.3 %; Lymphocytes % 19.3 %; MCHC 33.2 % (32.0-36.0); MCV 88 fL (80-95); MPV 10.2 fL (8.0-11.0); Monocytes % 7.1 %; Neutrophils % 69.7 %; RBC 4.79 10^6/uL (4.36-5.78); RDW-SD 45.5 fL; WBC 6.06 10^3/uL (4.4-10.8)
[2024-05-24 17:18] LABS: INR 1.1 (0.9-1.1); Prothrombin Time 11.4 sec (9.1-11.1)
[2024-05-24 17:38] LABS: ALT 50 U/L (16-63); AST 40 U/L (15-37); Albumin 3.4 g/dL (3.4-5.0); Alkaline Phosphatase 260 U/L (46-116); BUN 13 mg/dL (7-18); Bilirubin, Total 1.29 mg/dL (0.2-1.0); CREATININE 0.9 mg/dL (0.70-1.30); Chloride 106 mmol/L (98-107); Estimated GFR 122.31 (mL/min/1.73m2); GGT 130 U/L (15-85); Glucose 102 mg/dL (74-106); Platelet Count 96 10^3/uL (130-400); Potassium 3.8 mmol/L (3.5-5.1); Sodium 142 mmol/L (136-145); Total Protein 7.5 g/dL (6.4-8.2)
[2024-05-24 17:44] LABS: Glucose, 2 Hour PP 107 mg/dL
[2024-05-26 09:04] LABS: AFP Tumor Marker <2.5 ng/mL (<8.1)
[2024-05-26 09:08] LABS: IgE 8 IU/mL (<158)
[2024-05-26 10:02] LABS: IgA 167 mg/dL (85-499); IgG 1399 mg/dL (610-1616)
[2024-05-26 14:23] LABS: Tissue Transglutaminase IgA <4.0 CU (<20.0)
[2024-05-26 15:33] LABS: IgA 174 mg/dL (85-499); Interpretation (See Note); Tissue Transglutaminase IgA <4.0 CU (<20.0)
[2024-05-27 12:26] LABS: Zinc, S 58 mcg/dL (60-106)
[2024-05-28 00:45] LABS: Vitamin E, Serum 10.1 mg/L (5.5 - 17.0)
== END 2024-05-24 03:17 | disposition home or self-care (01) ==
PROVIDERS: Internal Medicine Gastroenterology; PCP Pediatrics; Visit Provider Student in an Organized Health Care Education/Training Program
DX: E84.8 Cystic fibrosis with other manifestations; K77 Liver disorders in diseases classified elsewhere
CPT/HCPCS: 36415; 80053; 82306; 82784; 83516; 84630; 82105; 82785; 82947; 82977; 84446; 84590; 85025; 85610

== ENCOUNTER 2024-05-31 02:04 | Outpatient (CLI) | payer MEDICAID, SELFPAY ==
--- NOTE | 2024-05-31 | DI.US_ITS ---
Exam(s) US ABDOMEN LIMITED EXAM: US ABDOMEN LIMITED CLINICAL HISTORY: HEPATIC CIRRHOSIS K74.60 HCC SURVEILLANCE TECHNIQUE: Ultrasound abdomen performed using standard protocol. COMPARISON: CT CT ABDOMEN PELVIS W from 01/23/[address] PELVIC WO from 01/23/2023 US US ABDOMEN LIMITED from 11/05/2023 FINDINGS: PANCREAS: Normal where visualized. LIVER: The liver has a coarsened echotexture. Hepatopetal flow in the Portal Vein. The liver measure s in 14.1 cm length. No evidence of a hepatic mass. GALLBLADDER: No evidence of cholelithiasis. No evidence of wall thickening. No pericholecystic fluid identified. BILIARY SYSTEM: Common bile duct measures < 7 mm. No intrahepatic biliary ductal dilation. BARRIOS'S SIGN: Negative. RIGHT KIDNEY: Kidney is normal in size. No evidence of renal calculi. No evidence of hydronephrosis. No renal mass or cyst identified. ASCITES: None seen. Spleen: The spleen is enlarged measuring 19.6 cm. Aorta and IVC: The aorta and IVC cannot be visualized due to overlying bowel gas. IMPRESSION: 1. No sonogram evidence of a hepatic mass. 2. Splenomegaly. The spleen measures 19.6 cm. DATA REPOSITORY:
== END 2024-05-31 02:24 ==
LOC: DI 02:04
PROVIDERS: PCP Pediatrics; Visit Provider Internal Medicine Gastroenterology
DX: K74.60 Unspecified cirrhosis of liver (principal)
CPT/HCPCS: 76705

== ENCOUNTER 2024-08-01 10:33 | Emergency (ER) | payer MEDICAID, SELFPAY ==
[2024-08-01 10:37] VITALS: BP 123/77; PULSE 54; RESP 20; TEMP 36.9; O2SAT 97
--- NOTE | 2024-08-01 10:45 | DI.CT_ITS ---
Exam(s) CT ABDOMEN PELVIS WO EXAM: CT ABDOMEN PELVIS WO CLINICAL HISTORY: abdominal pain. TECHNIQUE: Imaging Protocol: Axial computed tomography images with coronal and sagittal reformatted images were created and reviewed CONTRAST MATERIAL: Intravenous: none Oral: None COMPARISON: CT CT PELVIC WO from 01/23/2023 FINDINGS: VISUALIZED LUNG BASES: There is infiltrate in the medial segment of the right middle lobe and lingula r segment of the left lung. There are no pleural effusions.. ABDOMEN: There is no ascites. LIVER: Liver exhibits cirrhotic appearance/contour. There are no obvious discrete focal hepatic lesi ons on this non few study. There are serpiginous structures adjacent to the lower esophagus consiste nt with varices. GALLBLADDER/BILIARY: No obvious gallbladder pathology. CBD is not dilated. PANCREAS: Pancreas is almost non-existent in appearance. SPLEEN: Splenomegaly is noted. Spleen measures 16.7 cm AP and measures 16.5 cm craniocaudal. The sp lenic vein diameter is increased, with diameter of 1.1 cm. There also collaterals. Findings consist ent with portal venous hypertension. ADRENALS: There are no significant adrenal masses. KIDNEYS: Both exhibit normal size and appear unremarkable bilaterally. No cysts evident. No solid re nal masses. No calculi nor hydronephrosis. . ABDOMINAL AORTA: Abdominal aorta is not enlarged. LYMPH NODES: There is no retroperitoneal nor paraaortic adenopathy. ABDOMINAL WALL: No evidence of significant anterior abdominal wall nor inguinal hernia. GI: There is no evidence of bowel obstruction, free air, nor abscess. PELVIS: LYMPH NODES: There is no intrapelvic nor inguinal adenopathy. GI: The appendix is abnormally straightened and thickened to 18-19 mm and contains hyperdense materia l. However, there is no periappendiceal streaking. This appendix finding is unchanged from CT scan of 01/23/2023. No evidence of sigmoid diverticulitis. URINARY BLADDER: No calculi nor obvious masses evident REPRODUCTIVE: Prostate size is normal. Seminal vesicles unremarkable. OSSEOUS: No significant osseous lesions. Sacroiliac joints appear unremarkable. No fractures. IMPRESSION: 1. Hepatic cirrhosis, splenomegaly, periesophageal and gastric varices, these findings consistent wit h portal venous hypertension. There is no ascites evident. 2. Chronically thickened and straightened appendix again noted, similar to CT scan of January 2023. There is no periappendiceal streaking. 3. Atrophic pancreas 4. There infiltrates in the anterior lung bases bilaterally involving the right middle lobe and ling ular segment of the left lung with sparing of the basal segments of both lower lobes. No pleural eff usions 5. The above constellation of findings brings to mind the diagnosis of cystic fibro sis/mucoviscidosis. Discussed by phone with ER physician 08/01/2024 at 2:35 p.m. RADIATION DOSE DELIVERED: 585.75mGy.cm Total DLP DATA REPOSITORY: All CT scans at this facility are submitted to the National Radiology Data Registry (NRDR) Dose Index Registry (DIR) with the [employer] (ACR). RADIATION OPTIMIZATION: All CT scans at this facility use at least one of these dose optimization te chniques: automated exposure control; mA and/or kV adjustment per patient size (includes targeted exa ms where dose is matched to clinical indication); or iterative reconstruction.
[2024-08-01] MEDS: Ondansetron O.D.T. 4 MG TABEF 8 MG PO (10:55)
[2024-08-01] MEDS: Acetaminophen 500 MG TAB 1000 MG PO (10:55)
--- NOTE | 2024-08-01 11:14 | ED.GENADUL_ITS ---
Discharge Plan Disposition Patient Disposition: Home Discharge Details Clinical Impression: Abdominal pain Primary Care Provider: Elias Louis ED Provider: Juanita Villalobos Home Meds and New Rx's Prescriptions: No Action ursodiol 300 mg capsule 600 mg PO HS hydroxyzine HCl 50 mg tablet 50 mg PO DAILY PRN (Reason: Anxiety) Rx Instructions: 50-100 mg at bedtime as needed for sleep trazodone 50 mg tablet 50 mg PO QHS hawthorn extract 150 mg capsule 160 mg PO BID vitamin A 10,000 unit Tablet 10,000 unit PO 1XD fluticasone propionate 50 mcg/actuation spray,suspension 1 spray INTRANASAL DAILY melatonin 3 mg Tablet 3 mg PO HS midazolam 2 mg/mL syrup 2 mg PO ONCE PRN magnesium glycinate 100 mg magnesium Capsule 200 mg PO BID lacosamide 200 mg Tablet 200 mg PO BID Epidiolex 100 mg/mL solution 400 mg PO BID aripiprazole 10 mg tablet 10 mg PO 1XD hydroxyzine HCl 50 mg tablet 50 mg PO TID Rx Instructions: Take at 8AM, 1PM, 6PM cholecalciferol (vitamin D3) 125 mcg (5,000 unit) tablet 100 mcg PO 1XD vitamin K2 100 mcg Capsule 100 mcg PO 1XD omega-3 fatty acids-fish oil 300-1,000 mg capsule 1 cap PO 1XD acetylcysteine 600 mg Capsule 600 mg PO BID famotidine 20 mg tablet 20 mg PO BID ursodiol 300 mg capsule 300 mg PO DAILY AM levalbuterol tartrate [Xopenex HFA] 45 mcg/actuation HFA aerosol inhaler 2 puff INHALATION BID budesonide-formoterol [Symbicort] 160-4.5 mcg/actuation HFA aerosol inhaler 2 puff INHALATION BID Pulmozyme 1 mg/mL solution 2.5 mg INHALATION DAILY [place] 75 mg/mL solution for nebulization 75 mg INHALATION TID Pancreaze 21,000-54,700- 83,900 unit capsule,delayed release(DR/EC) 3 - 5 cap PO QMEALS Rx Instructions: 3 capsules with snacks. 5 capsules with every meal coenzyme Q10 120 mg Capsule 120 mg PO DAILY aripiprazole [Abilify] 5 mg tablet 5 mg PO QHS lacosamide [Vimpat] 50 mg tablet 50 mg PO BID polyethylene glycol 3350 17 g PO 1XD PRN albuterol sulfate 2.5 mg/0.5 mL solution for nebulization 2.5 mg inhalation BID ascorbic acid (vitamin C) 500 mg tablet 500 mg PO DAILY peppermint oil 90 mg capsule,delayed,extend.release 90 mg PO ONCE carvedilol 6.25 mg tablet 6.25 mg PO DAILY Linzess 290 mcg capsule 290 mcg PO ONCE hyoscyamine sulfate 0.125 mg tablet, sublingual 0.125 mg sublingual TID PRN (Reason: IBS cramping) Patient Comments: taken PRN for cramps Xifaxan 550 mg tablet 550 mg PO BID docusate sodium [Col-Rite] 100 mg capsule 100 mg PO DAILY ibuprofen [IBU] 800 mg tablet 800 mg PO TID-QID PRN midazolam 10 mg PO PRN mvmwir-yivremnz-tiwbybz [Pancreaze] PO Patient Comments: unknown dose allicin max 180 mg PO BID Rx Instructions: unknown dose Discharge Instructions Additional Instructions: Symptoms are likely due to some mild constipation. Start giving 1 cap of MiraLAX twice daily and increase fluid intake. Return if he has developed any fever or vomiting HPI General Date/Time Provider Initiated Documentation: 08/01/24 10:41 . Limitations to Documentation: physical limitation . Information obtained by: family . HPI Narrative: 23-year-old gentleman with past medical history of developmental delay, nonverbal autism, cystic fibrosis presents with his caregivers for concern of abdominal pain for the last 2 days. They state that yesterday he started saying tummy hurts. He was also crying repeatedly and also had seem to be very uncomfortable. No medications were given for discomfort. They deny any fever or vomiting. They report that he did not eat breakfast this morning. He usually makes bowel movements independently and will take a bath afterwards. They state that he did take a bath yesterday but they cannot confirm that he actually had a bowel movement. Related Data Home Medications ?Medication ?Instructions ?Recorded ?Confirmed hawthorn extract 150 mg capsule 160 mg PO BID 08/02/21 08/01/24 hydroxyzine HCl 50 mg tablet 50 mg PO DAILY PRN Anxiety 08/02/21 08/01/24 trazodone 50 mg tablet 50 mg PO QHS 08/02/21 08/01/24 ursodiol 300 mg capsule 600 mg PO HS 08/02/21 08/01/24 magnesium glycinate 200 mg PO BID 02/19/22 08/01/24 acetylcysteine 600 mg capsule 600 mg PO BID 01/23/23 08/01/24 aripiprazole 10 mg tablet 10 mg PO 1XD 01/23/23 08/01/24 aztreonam lysine 75 mg/mL solution 75 mg inhalation TID 01/23/23 08/01/24 for nebulization ([place]) budesonide-formoterol HFA 160 2 puff inhalation BID 01/23/23 08/01/24 mcg-4.5 mcg/actuation aerosol inhaler (Symbicort) cannabidiol 100 mg/mL oral 400 mg PO BID 01/23/23 08/01/24 solution (Epidiolex) cholecalciferol (vitamin D3) 125 100 mcg PO 1XD 01/23/23 08/01/24 mcg (5,000 unit) tablet coenzyme Q10 120 mg capsule 120 mg PO DAILY 01/23/23 08/01/24 dornase kathryn 1 mg/mL solution for 2.5 mg inhalation DAILY 01/23/23 08/01/24 inhalation (Pulmozyme) famotidine 20 mg tablet 20 mg PO BID 01/23/23 08/01/24 hydroxyzine HCl 50 mg tablet 50 mg PO TID 01/23/23 08/01/24 lacosamide 200 mg tablet 200 mg PO BID 01/23/23 08/01/24 levalbuterol tartrate 45 2 puff inhalation BID 01/23/23 08/01/24 mcg/actuation aerosol inhaler (Xopenex HFA) lipase 21,000-protease 3 - 5 cap PO QMEALS 01/23/23 08/01/24 54,700-amylase 83,900 unit capsule,delayed rel (Pancreaze) omega-3 fatty acids-fish oil 300 1 cap PO 1XD 01/23/23 08/01/24 mg-1,000 mg capsule ursodiol 300 mg capsule 300 mg PO DAILY AM 01/23/23 08/01/24 vitamin K2 100 mcg capsule 100 mcg PO 1XD 01/23/23 08/01/24 fluticasone propionate 50 1 spray intranasal DAILY 01/24/23 08/01/24 mcg/actuation nasal spray,suspension melatonin 3 mg tablet 3 mg PO HS 01/24/23 08/01/24 vitamin A 10,000 unit tablet 10,000 unit PO 1XD 01/24/23 08/01/24 midazolam 2 mg/mL oral syrup 2 mg PO ONCE PRN 04/06/23 08/01/24 albuterol sulfate 2.5 mg/0.5 mL 2.5 mg inhalation BID 08/01/24 08/01/24 solution for nebulization allicin max 180 mg PO BID 08/01/24 08/01/24 aripiprazole 5 mg tablet (Abilify) 5 mg PO QHS 08/01/24 08/01/24 ascorbic acid (vitamin C) 500 mg 500 mg PO DAILY 08/01/24 08/01/24 tablet carvedilol 6.25 mg tablet 6.25 mg PO DAILY portal 08/01/24 08/01/24 hypertension docusate sodium 100 mg capsule 100 mg PO DAILY 08/01/24 08/01/24 (Col-Rite) hyoscyamine sulfate 0.125 mg 0.125 mg sublingual TID PRN IBS 08/01/24 08/01/24 sublingual tablet cramping ibuprofen 800 mg tablet (IBU) 800 mg PO TID-QID PRN 08/01/24 08/01/24 lacosamide 50 mg tablet (Vimpat) 50 mg PO BID 08/01/24 08/01/24 linaclotide 290 mcg capsule 290 mcg PO ONCE 08/01/24 08/01/24 (Linzess) nvqfdy-sjvoraer-mzqmaoj PO 08/01/24 midazolam 10 mg PO PRN 08/01/24 08/01/24 peppermint oil 90 mg 90 mg PO ONCE 08/01/24 08/01/24 capsule,delayed,extended release polyethylene glycol 3350 17 g PO 1XD PRN 08/01/24 08/01/24 rifaximin 550 mg tablet (Xifaxan) 550 mg PO BID 08/01/24 08/01/24 Allergies Allergy/AdvReac Type Severity Reaction Status Date / Time amoxicillin Allergy Intermediate RASH Verified 08/01/24 11:55 levetiracetam (From Keppra) Allergy Unknown aggression Verified 08/01/24 11:55 ciprofloxacin (From Cipro) Allergy Unknown Unverified 08/01/24 11:55 clobazam Allergy Unknown Unverified 08/01/24 11:55 lamotrigine Allergy Unknown Unverified 08/01/24 11:55 elexacaftor (From Trikafta) AdvReac Severe Unknown Verified 08/01/24 11:55 ivacaftor (From Symdeko) AdvReac Severe Unknown Verified 08/01/24 11:55 tezacaftor (From Symdeko) AdvReac Severe Unknown Verified 08/01/24 11:55 Benzodiazepines AdvReac Intermediate Unknown Verified 08/01/24 11:55 latex AdvReac Unknown RASH Verified 08/01/24 11:55 montelukast (From Singulair) AdvReac Behavioral Verified 08/01/24 11:55 side effects General Stated Complaint: Abd Prob MARINA: 3 Exam Narrative Exam Narrative: Review of Systems: All systems reviewed & are unremarkable except as noted in HPI and below Well-developed, no acute distress Abrasion noted to upper forehead (caregiver states this is a repetitive self- inflicted injury) Moist mucous membranes RRR Unlabored respiratory effort soft, mild gaseous distention Neuro and behavioral baseline Course Vital Signs Vital signs: Vital Signs Temperature 36.9 C 08/01/24 10:37 Pulse 54 L 08/01/24 10:37 Respiratory Rate 20 08/01/24 10:37 Blood Pressure 123/77 08/01/24 10:37 Pulse Oximetry 97 08/01/24 10:37 Temperature 36.9 C 08/01/24 10:37 Pulse 54 L 08/01/24 10:37 Respiratory Rate 20 08/01/24 10:37 Blood Pressure 123/77 08/01/24 10:37 Blood Pressure Position Sitting 08/01/24 10:37 Pulse Oximetry 97 08/01/24 10:37 Oxygen Delivery Method Room Air 08/01/24 10:37 Oxygen Flow Rate 0 08/01/24 10:37 Medical Decision Making Emergent evaluation of abdominal pain. History limited due to the nonverbal nature of the patient. Has no fever or abnormality of his vital signs. His abdominal exam is fairly benign though tonight I do appreciate some gas. I nitial differential includes viral GI illness, ileus, constipation. Discussed approach with caregivers and we will start with a noncontrast CT to evaluate for any acute surgical process. Given that he is afebrile and not vomiting, I doubt electrolyte derangement or renal dysfunction. Will hold off getting lab work at this time. CT imaging does not reveal any acute process. Patient has been comfortable in the emergency department without any complaints of pain. Symptoms are likely secondary to constipation. I recommend starting daily MiraLAX, twice daily and monitoring symptoms closely. Return if persistent complaints of pain, fever or vomiting Quality:[facility] Health Related Social Needs: No Data to Display PFSH All Active Problems (Updated 08/01/24 @ 12:45 by Juanita Villalobos MD) Abdominal pain (Acute) Obstipation (Acute) Developmental non-verbal disorder (Acute) Well adult health check (Acute) Bipolar disorder, unspecified (Acute) Psychiatry evaluation at [facility] -01/17/2021 Seizure disorder (Chronic) Fnhrf-[id number] deficiency (Chronic) Medical History Learning problem Mderz-[id number] deficiency Surgical History splinter removal Family History Mother Hyperlipidemia Sister Asthma Grandparent Essential hypertension Heart disease Hyperlipidemia Social History Smoking/Tobacco Use Status: Never Smoking risk assessment performed?: Yes Alcohol Intake: never Drug use: Never Substance use type: does not use Household members: family Housing: house Pets and animals: Yes (1 dog at mom's, 1 dog at dad's and outdoor cats) Pets and animals: cat(s) and dog(s) Do you feel safe at home: Yes Do you feel safe in your relationship?: Yes Additional Social history: 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
--- NOTE | 2024-08-01 12:30 | DI.VRAD_ITS ---
Addendum created by Freddy Glover DO on 08/01/2024 12:36:25 PM EDT: Stable fatty infiltration of the pancreas, unchanged. Appendix is chronically dilated with no significant change since prior exam. Appendix is about 18 cm in diameter (26 series 3) and contains inspissated fecal matter or secretions, unchanged. There is no surrounding periappendiceal stranding or inflammation to suggest acute inflammation. There is no intraabdominal collection. Initial report created on 08/01/2024 12:30:11 PM EDT: PROCEDURE INFORMATION: Exam: CT Abdomen And Pelvis Without Contrast Exam date and time: 08/01/2024 11:03 AM Age: 23 years old Clinical indication: Abdominal pain TECHNIQUE: Imaging protocol: Computed tomography of the abdomen and pelvis without contrast. COMPARISON: CT PELVIC WO 01/23/2023 9:40 PM FINDINGS: Lungs: Peribronchial cuffing and thickening in the anteromedial inferior right upper lobe, right middle lobe and lingula and may represent bronchiolitis, similar to prior exam. Mild airspace opacity in the lingula. Liver: Contour of the liver is nodular suspicious of cirrhosis. Gallbladder and biliary ducts: Normal. No calcified stones. No ductal dilation. Pancreas: Normal. No ductal dilation. Spleen: There is mild splenomegaly. Spleen is 16.6 cm AP x 16.6 cm in length. Adrenal glands: Normal. No mass. Kidneys and ureters: Normal. No hydronephrosis. Stomach and bowel: Unremarkable. No obstruction. No mucosal thickening. Appendix: No evidence of appendicitis. Intraperitoneal space: Unremarkable. No free air. No significant fluid collection. Vasculature: There is suspicion of paraesophageal and gastric varices and collaterals adjacent to the splenic hilum. Lymph nodes: Unremarkable. No enlarged lymph nodes. Urinary bladder: Unremarkable as visualized. Reproductive: Unremarkable as visualized. Bones/joints: Unremarkable. No acute fracture. Soft tissues: Unremarkable. IMPRESSION: 1. Cirrhosis of the liver with splenomegaly. 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 2. No ascites. 3. No acute abdominal or pelvic abnormalities. No intra-abdominal abscess or free air. 4. There is peribronchial thickening in the right middle lobe , lingula and anteromedial right upper lobe and may represent bronchiolitis. There is mild airspace opacity in the lingula and may represent atelectasis or infiltrate. Dictated and Authenticated by: Freddy Glover MD. Orderin Wilfredo Frost MD
== END 2024-08-01 12:53 | disposition home or self-care (01) ==
PROVIDERS: Emergency Provider Emergency Medicine; PCP Family Medicine
DX: R10.9 Unspecified abdominal pain (principal); R62.50 Unspecified lack of expected normal physiological development in childhood; F84.0 Autistic disorder; E84.9 Cystic fibrosis, unspecified; E88.01 Alpha-1-antitrypsin deficiency
CPT/HCPCS: 99284; 74176

== ENCOUNTER 2024-08-09 14:20 | Outpatient (CLI) | payer MEDICAID, SELFPAY ==
--- NOTE | 2024-08-09 | DI.RAD_ITS ---
Exam(s) XR ABDOMEN FLAT PLATE EXAM: 2D digital imaging was performed. CLINICAL HISTORY: Generalized abd pain, R10.84; constipation, K59.00; ongoing abdominal. COMPARISON: No exams were available for comparison TECHNIQUE: Supine views of the abdomen performed. FINDINGS: BOWEL GAS PATTERN: Nondistended. Minimal stool. CALCIFICATIONS: No radiopaque calcifications. OSSEOUS STRUCTURES: Unremarkable for age. OTHER FINDINGS: The lung bases are clear. IMPRESSION: 1. Nonobstructive bowel gas pattern. Minimal quantity of stool. 2. No radiopaque calculi. DATA REPOSITORY: RADIATION DOSE DELIVERED:
== END 2024-08-09 14:40 ==
PROVIDERS: PCP Family Medicine; Visit Provider Family Medicine
DX: R10.84 Generalized abdominal pain (principal); K59.00 Constipation, unspecified
CPT/HCPCS: 74018

== ENCOUNTER 2024-10-27 01:30 | Outpatient (CLI) | payer MEDICAID, SELFPAY ==
[2024-10-27 13:04] LABS: Calculated LDL 93 mg/dL (<100); Cholesterol 163 mg/dL (<200); HDL Cholesterol 61 mg/dL (>or=40); Triglyceride 46 mg/dL (<150); Vitamin D 25 Total 80 ng/mL (30-100)
[2024-10-29 10:45] LABS: Apolipoprotein B, S 73 mg/dL
[2024-10-29 11:08] LABS: Lipoprotein (a) 24 nmol/L (<75)
== END 2024-10-27 01:31 | disposition home or self-care (01) ==
PROVIDERS: Psychiatry & Neurology Behavioral Neurology & Neuropsychiatry; PCP Family Medicine; Visit Provider Nurse Practitioner Family
DX: G40.219 Localization-related (focal) (partial) symptomatic epilepsy and epileptic syndromes with complex partial seizures, intractable, without status epilepticus (principal); E78.5 Hyperlipidemia, unspecified; E55.9 Vitamin D deficiency, unspecified
CPT/HCPCS: 36415; 80061; 82172; 82306; 83695; 80235

== ENCOUNTER 2024-11-04 16:25 | Outpatient (CLI) | payer MEDICAID, SELFPAY ==
[2024-11-04 16:35] LABS: Ammonia 31 umol/L (11-32)
[2024-11-04 17:22] LABS: ALT 48 U/L (16-63); AST 31 U/L (15-37); Albumin 3.6 g/dL (3.4-5.0); Alkaline Phosphatase 314 U/L (46-116); Anion Gap 10.3 mmol/L (3-11); BUN 10 mg/dL (7-18); Bilirubin, Total 0.9 mg/dL (0.2-1.0); CO2 25.7 mmol/L (21.0-32.0); Calcium 9.0 mg/dL (8.5-10.1); Chloride 103 mmol/L (98-107); Estimated GFR 126.74 (mL/min/1.73m2); Glucose 200 mg/dL (74-106); Potassium 3.8 mmol/L (3.5-5.1); Sodium 139 mmol/L (136-145); Total Protein 7.7 g/dL (6.4-8.2)
== END 2024-11-04 16:26 | disposition home or self-care (01) ==
LOC: LBO 16:28
PROVIDERS: PCP Family Medicine; Visit Provider Psychiatry & Neurology Behavioral Neurology & Neuropsychiatry
DX: G40.309 Generalized idiopathic epilepsy and epileptic syndromes, not intractable, without status epilepticus (principal)
CPT/HCPCS: 36415; 80053; 82140

== ENCOUNTER 2024-12-05 22:51 | Emergency (ER) | payer MEDICAID, SELFPAY ==
[2024-12-05 22:53] VITALS: BP 129/62; PULSE 66; RESP 18; TEMP 36.4; O2SAT 96
[2024-12-05] MEDS: Lidocaine/Epinephri/Tetracaine Topical Gel 3 ML (23:11)
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
[2024-12-05] MEDS: Midazolam 2 MG/2 ML VIAL 5 MG IVP (23:32)
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
== END 2024-12-06 01:07 | disposition home or self-care (01) ==
PROVIDERS: Emergency Provider Student in an Organized Health Care Education/Training Program; PCP Family Medicine
DX: S00.01XA Abrasion of scalp, initial encounter (principal); W19.XXXA Unspecified fall, initial encounter
CPT/HCPCS: 99284; 99283; 96374; 70450; J2250

== ENCOUNTER 2024-12-08 16:43 | Emergency (ER) | payer MEDICAID, SELFPAY ==
[2024-12-08 16:44] VITALS: BP 120/74; PULSE 67; RESP 16; TEMP 36.2; O2SAT 95
[2024-12-08 16:47] VITALS: BP 120/74; PULSE 67; RESP 16; TEMP 36.2; O2SAT 95
--- NOTE | 2024-12-08 17:17 | W.ED.GENAD ---
Discharge Plan Disposition Patient Disposition: Against Medical Advice Condition: Improving Discharge Details Clinical Impression: Behavioral change Primary Care Provider: Elias Louis ED Provider: Vamshi Turner Home Meds and New Rx's Prescriptions: No Action ursodiol 300 mg capsule 600 mg PO HS hydroxyzine HCl 50 mg tablet 50 mg PO DAILY PRN (Reason: Anxiety) Rx Instructions: 50-100 mg at bedtime as needed for sleep trazodone 50 mg tablet 50 mg PO QHS hawthorn extract 150 mg capsule 160 mg PO BID vitamin A 10,000 unit Tablet 10,000 unit PO 1XD fluticasone propionate 50 mcg/actuation spray,suspension 1 spray INTRANASAL DAILY melatonin 3 mg Tablet 3 mg PO HS midazolam 2 mg/mL syrup 2 mg PO ONCE PRN cefpodoxime 200 mg tablet 200 mg PO BID Rx Instructions: must administer with a meal/food magnesium glycinate 100 mg magnesium Capsule 200 mg PO BID lacosamide 200 mg Tablet 200 mg PO BID Epidiolex 100 mg/mL solution 400 mg PO BID aripiprazole 10 mg tablet 5 mg PO 1XD hydroxyzine HCl 50 mg tablet 50 mg PO TID Rx Instructions: Take at 8AM, 1PM, 6PM cholecalciferol (vitamin D3) 125 mcg (5,000 unit) tablet 100 mcg PO 1XD vitamin K2 100 mcg Capsule 100 mcg PO 1XD omega-3 fatty acids-fish oil 300-1,000 mg capsule 1 cap PO 1XD acetylcysteine 600 mg Capsule 600 mg PO BID famotidine 20 mg tablet 20 mg PO BID ursodiol 300 mg capsule 300 mg PO DAILY AM levalbuterol tartrate [Xopenex HFA] 45 mcg/actuation HFA aerosol inhaler 2 puff INHALATION BID budesonide-formoterol [Symbicort] 160-4.5 mcg/actuation HFA aerosol inhaler 2 puff INHALATION BID Pulmozyme 1 mg/mL solution 2.5 mg INHALATION DAILY [place] 75 mg/mL solution for nebulization 75 mg INHALATION TID Pancreaze 21,000-54,700- 83,900 unit capsule,delayed release(DR/EC) 3 - 5 cap PO QMEALS Rx Instructions: 3 capsules with snacks. 5 capsules with every meal coenzyme Q10 120 mg Capsule 120 mg PO DAILY aripiprazole [Abilify] 5 mg tablet 5 mg PO QHS lacosamide [Vimpat] 50 mg tablet 50 mg PO BID polyethylene glycol 3350 17 g PO 1XD PRN albuterol sulfate 2.5 mg/0.5 mL solution for nebulization 2.5 mg inhalation BID ascorbic acid (vitamin C) 500 mg tablet 500 mg PO DAILY peppermint oil 90 mg capsule,delayed,extend.release 90 mg PO ONCE carvedilol 6.25 mg tablet 6.25 mg PO DAILY Linzess 290 mcg capsule 290 mcg PO ONCE hyoscyamine sulfate 0.125 mg tablet, sublingual 0.125 mg sublingual TID PRN (Reason: IBS cramping) Patient Comments: taken PRN for cramps Xifaxan 550 mg tablet 550 mg PO BID docusate sodium [Col-Rite] 100 mg capsule 100 mg PO DAILY ibuprofen [IBU] 800 mg tablet 800 mg PO TID-QID PRN midazolam 10 mg PO PRN wcktrb-xohrzwak-tmirpip [Pancreaze] PO Patient Comments: unknown dose allicin max 180 mg PO BID Rx Instructions: unknown dose HPI General Date/Time Provider Initiated Documentation: 12/08/24 17:00. HPI Narrative: 23-year-old male history of cystic fibrosis, autism, bipolar disorder, brought in by family for evaluation of angry outbursts and brief episodes of altered mental status, family is concerned that his liver function and/or spleen may be abnormal Related Data Home Medications ?Medication ?Instructions ?Recorded ?Confirmed hawthorn extract 150 mg capsule 160 mg PO BID 08/02/21 12/08/24 hydroxyzine HCl 50 mg tablet 50 mg PO DAILY PRN Anxiety 08/02/21 12/08/24 trazodone 50 mg tablet 50 mg PO QHS 08/02/21 12/08/24 ursodiol 300 mg capsule 600 mg PO HS 08/02/21 12/08/24 magnesium glycinate 200 mg PO BID 02/19/22 12/08/24 acetylcysteine 600 mg capsule 600 mg PO BID 01/23/23 12/08/24 aripiprazole 10 mg tablet 5 mg PO 1XD 01/23/23 12/08/24 Held on 12/05/24. Instructions: Pt Stopped/Never Started aztreonam lysine 75 mg/mL solution 75 mg inhalation TID 01/23/23 12/08/24 for nebulization ([place]) Held on 12/05/24. Instructions: Pt Stopped/Never Started budesonide-formoterol HFA 160 2 puff inhalation BID 01/23/23 12/08/24 mcg-4.5 mcg/actuation aerosol inhaler (Symbicort) cannabidiol 100 mg/mL oral 400 mg PO BID 01/23/23 12/08/24 solution (Epidiolex) cholecalciferol (vitamin D3) 125 100 mcg PO 1XD 01/23/23 12/08/24 mcg (5,000 unit) tablet coenzyme Q10 120 mg capsule 120 mg PO DAILY 01/23/23 12/08/24 dornase kathryn 1 mg/mL solution for 2.5 mg inhalation DAILY 01/23/23 12/08/24 inhalation (Pulmozyme) famotidine 20 mg tablet 20 mg PO BID 01/23/23 12/08/24 hydroxyzine HCl 50 mg tablet 50 mg PO TID 01/23/23 12/08/24 lacosamide 200 mg tablet 200 mg PO BID 01/23/23 12/08/24 levalbuterol tartrate 45 2 puff inhalation BID 01/23/23 12/08/24 mcg/actuation aerosol inhaler (Xopenex HFA) lipase 21,000-protease 3 - 5 cap PO QMEALS 01/23/23 12/08/24 54,700-amylase 83,900 unit capsule,delayed rel (Pancreaze) omega-3 fatty acids-fish oil 300 1 cap PO 1XD 01/23/23 12/08/24 mg-1,000 mg capsule ursodiol 300 mg capsule 300 mg PO DAILY AM 01/23/23 12/08/24 vitamin K2 100 mcg capsule 100 mcg PO 1XD 01/23/23 12/08/24 fluticasone propionate 50 1 spray intranasal DAILY 01/24/23 12/08/24 mcg/actuation nasal spray,suspension melatonin 3 mg tablet 3 mg PO HS 01/24/23 12/08/24 vitamin A 10,000 unit tablet 10,000 unit PO 1XD 01/24/23 12/08/24 midazolam 2 mg/mL oral syrup 2 mg PO ONCE PRN 04/06/23 12/08/24 albuterol sulfate 2.5 mg/0.5 mL 2.5 mg inhalation BID 08/01/24 12/08/24 solution for nebulization allicin max 180 mg PO BID 08/01/24 12/08/24 aripiprazole 5 mg tablet (Abilify) 5 mg PO QHS 08/01/24 12/08/24 ascorbic acid (vitamin C) 500 mg 500 mg PO DAILY 08/01/24 12/08/24 tablet carvedilol 6.25 mg tablet 6.25 mg PO DAILY portal 08/01/24 12/08/24 hypertension docusate sodium 100 mg capsule 100 mg PO DAILY 08/01/24 12/08/24 (Col-Rite) hyoscyamine sulfate 0.125 mg 0.125 mg sublingual TID PRN IBS 08/01/24 12/08/24 sublingual tablet cramping ibuprofen 800 mg tablet (IBU) 800 mg PO TID-QID PRN 08/01/24 12/08/24 lacosamide 50 mg tablet (Vimpat) 50 mg PO BID 08/01/24 12/08/24 linaclotide 290 mcg capsule 290 mcg PO ONCE 08/01/24 12/08/24 (Linzess) tobnra-ptlygodi-pwydnpj PO 08/01/24 Held on 08/01/24. Instructions: Changed by Provider midazolam 10 mg PO PRN 08/01/24 12/08/24 Held on 12/05/24. Instructions: Pt Stopped/Never Started peppermint oil 90 mg 90 mg PO ONCE 08/01/24 12/08/24 capsule,delayed,extended release polyethylene glycol 3350 17 g PO 1XD PRN 08/01/24 12/08/24 rifaximin 550 mg tablet (Xifaxan) 550 mg PO BID 08/01/24 12/08/24 cefpodoxime 200 mg tablet 200 mg PO BID 12/08/24 12/08/24 Allergies Allergy/AdvReac Type Severity Reaction Status Date / Time amoxicillin Allergy Intermediate RASH Verified 12/08/24 16:48 levetiracetam (From Keppra) Allergy Unknown aggression Verified 12/08/24 16:48 ciprofloxacin (From Cipro) Allergy Unknown Unverified 12/08/24 16:48 clobazam Allergy Unknown Unverified 12/08/24 16:48 lamotrigine Allergy Unknown Unverified 12/08/24 16:48 elexacaftor (From [facility]) AdvReac Severe Unknown Verified 12/08/24 16:48 ivacaftor (From [facility]) AdvReac Severe Unknown Verified 12/08/24 16:48 tezacaftor (From [facility]) AdvReac Severe Unknown Verified 12/08/24 16:48 Benzodiazepines AdvReac Intermediate Unknown Verified 12/08/24 16:48 latex AdvReac Unknown RASH Verified 12/08/24 16:48 [facility] AdvReac Behavioral Verified 12/08/24 16:48 side effects General Stated Complaint: GenMedical MARINA: 3 Exam Narrative Exam Narrative: General: alert, no acute distress HEENT: normocephalic, atraumatic, neck supple, pupils equal round reactive to light, moist mucous membranes, tolerating secretions, normal voice, no rhinorrhea or otorrhea Respiratory: normal respiratory effort, lungs clear bilaterally, no wheezes rales or rhonchi Cardiac: regular rate and rhythm, no murmurs rubs or gallops; equal pulses bilaterally, warm well perfused Abdominal: soft, nontender, nondistended; no organomegaly or palpable masses MSK: normal range of motion of extremities, warm, well perfused Skin: warm, dry, no rashes or lesions Neuro: Alert, CN II-XII intact, 5/5 strength bilateral upper and lower extremities, normal speech, no ataxia Psych: normal mood, normal affect, calm, cooperative Course Vital Signs Vital signs: Vital Signs Temperature 36.2 C L 12/08/24 16:44 Pulse 67 12/08/24 16:44 Respiratory Rate 16 12/08/24 16:44 Blood Pressure 120/74 12/08/24 16:44 Pulse Oximetry 95 12/08/24 16:44 Temperature 36.2 C L 12/08/24 16:47 Temperature Source Temporal Artery Scan 12/08/24 16:47 Pulse 67 12/08/24 16:47 Respiratory Rate 16 12/08/24 16:47 Blood Pressure 120/74 12/08/24 16:47 Blood Pressure Position Sitting 12/08/24 16:47 Pulse Oximetry 95 12/08/24 16:47 Oxygen Delivery Method Room Air 12/08/24 16:47 Oxygen Flow Rate 0 12/08/24 16:47 Comment Pt reports head and abdominal pain 12/08/24 16:47 Medical Decision Making 23-year-old male history of cystic fibrosis, autism, bipolar disorder, brought in by parents for evaluation of outbursts of behavior and brief altered mental status over the past several days, patient afebrile nontoxic calm cooperative interactive nonfocal neurologically no signs of respiratory distress, no signs of trauma intoxication or infection at this time. However family is concerned that he may have abnormal liver function or his spleen may be abnormal at this time. Will obtain basic blood work and imaging to assess for causes of possible altered mentation although patient is not altered at this time. Must consider electrolyte derangement lower sufficient for intracranial hemorrhage or stroke lower suspicion for intra-abdominal infection or trauma, no signs of intoxication, lower suspicion for primary cardiac process, muscles consider pulmonary infection given cystic fibrosis lower suspicion for UTI. Given past history of liver disease and varices must consider hyperammonemia lower suspicion for splenic pathology such as laceration or rupture, patient shows no signs of self injures behavior or injures behavior to others at this time. Patient is calm cooperative neurologically intact. 20: 41 patient family refusing imaging as patient has had multiple CT abdomen pelvis studies in the last couple of years, patient has also had a recent CT head which was negative. Upon further discussion with family it is clear that patient's presentation is largely related to worsening behavioral/psychiatric concerns specifically violent outbursts, patient lives at residential care facility, will benefit from psychiatric evaluation and case management evaluation to determine safe disposition. Family is in agreements. Patient afebrile nontoxic neurologically intact labs largely unremarkable. No signs of infection or intoxication no signs of trauma. Patient will be moved to Zone B for voluntary psychiatric evaluation 21: 10 after much deliberation family has decided they wish to take the patient home. They feel comfortable following up in the morning with his primary team at [facility]. They feel supported on an outpatient basis with psychiatric follow-up and medical follow-up. I have counseled him extensively that after discussing with them his violent outburst that I would feel most comfortable observing him having social work and psychiatric team evaluating him however they are adamant that they would like to leave. I have counseled them with regards to the risks of leaving which include disability injury and . Family/care team understand the risks and would like to leave AGAINST MEDICAL ADVICE. Patient has been calm cooperative no acute distress no violent outbursts or self injurious behavior evident during his stay here in the department [facility] All Active Problems (Updated 12/08/24 @ 21:19 by Vamshi Turner MD) Behavioral change (Acute) Abrasion of scalp (Acute) Obstipation (Acute) Developmental non-verbal disorder (Acute) Well adult health check (Acute) Bipolar disorder, unspecified (Acute) Psychiatry evaluation at [facility] -01/17/2021 Seizure disorder (Chronic) Okbdn-4-dexnbqsljoq deficiency (Chronic) Medical History Learning problem Ecatw-9-hrctcrnsbyl deficiency Surgical History splinter removal Family History Mother Hyperlipidemia Sister Asthma Grandparent Essential hypertension Heart disease Hyperlipidemia Social History Smoking/Tobacco Use Status: Never Smoking risk assessment performed?: Yes Alcohol Intake: never Drug use: Never Substance use type: does not use Household members: family Housing: house Pets and animals: Yes (1 dog at mom's, 1 dog at dad's and outdoor cats) Pets and animals: cat(s) and dog(s) Do you feel safe at home: Yes Do you feel safe in your relationship?: Yes Additional Social history: 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[facility] [place], daytime caregiver care 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
[2024-12-08 17:29] LABS: Abs Immature Grans 0.01 10^3/uL (0.0-0.06); HCT 42.5 % (40.0-50.0); HGB 14.5 g/dL (13.5-17.5); Immature Grans % 0.2 %; MCH 29.2 pg (27.0-33.0); MCHC 34.1 % (32.0-36.0); MCV 86 fL (80-95); MPV 10.2 fL (8.0-11.0); RBC 4.96 10^6/uL (4.36-5.78); RDW 12.7 % (11.8-14.1); RDW-SD 39.8 fL; WBC 6.63 10^3/uL (4.4-10.8)
[2024-12-08 17:41] LABS: Magnesium 2.0 mg/dL (1.8-2.4); Platelet Count 99 10^3/uL (130-400); RBC Morphology Normal
[2024-12-08 17:43] LABS: Ammonia 30 umol/L (11-32)
[2024-12-08 17:54] LABS: ALT 51 U/L (16-63); AST 37 U/L (15-37); Albumin 3.7 g/dL (3.4-5.0); Alkaline Phosphatase 289 U/L (46-116); Anion Gap 9.4 mmol/L (3-11); BUN 13 mg/dL (7-18); Bilirubin, Total 0.9 mg/dL (0.2-1.0); CO2 25.6 mmol/L (21.0-32.0); Calcium 8.9 mg/dL (8.5-10.1); Chloride 104 mmol/L (98-107); Estimated GFR 126.74 (mL/min/1.73m2); Glucose 175 mg/dL (74-106); Lipase 7 U/L (<78); Potassium 3.9 mmol/L (3.5-5.1); Sodium 139 mmol/L (136-145); TSH (W/Ref FT4) 1.54 uIU/mL (0.36-3.74); Total Protein 7.8 g/dL (6.4-8.2)
[2024-12-08 18:33] VITALS: RESP 18
== END 2024-12-08 20:24 | disposition left against medical advice (07) ==
PROVIDERS: Emergency Provider Emergency Medicine; PCP Family Medicine
DX: R46.89 Other symptoms and signs involving appearance and behavior (principal); Z53.29 Procedure and treatment not carried out because of patient's decision for other reasons; R51.9 Headache, unspecified; R10.9 Unspecified abdominal pain
CPT/HCPCS: 99284 ×2; 36415; 36416; 82962; 80053; 83690; 82140; 83735; 84443; 85025

== ENCOUNTER → 2025-03-28 02:06 | Outpatient (CLI) | payer MEDICAID, SELFPAY ==
--- NOTE | 2025-03-28 | DI.US_ITS ---
Exam(s) US ABDOMEN LIMITED EXAM: US ABDOMEN LIMITED CLINICAL HISTORY: E84.8,K77 Screen for HCC, cirrhosis, liver DX due to cystic firbrosis TECHNIQUE: Ultrasound abdomen performed using standard protocol. COMPARISON: US US ABDOMEN LIMITED from 05/31/[address] ABDOMEN PELVIS WO from 08/01/2024 FINDINGS: PANCREAS: There is a stable sonographic appearance of the pancreas. LIVER: The liver has a coarsened echotexture. It is on the small size. Hepatopetal flow in the Portal Vein. The liver measures in 13.8 cm length. No evidence of a hepatic mass. GALLBLADDER: No evidence of cholelithiasis. No evidence of wall thickening. No pericholecystic fluid identified. There is a 0.7 cm nodule along the wall of the gallbladder fundus. It is less well visualized on all views. This may be artifact versus a small gallbladder polyp. BILIARY SYSTEM: Common bile duct measures < 7 mm. No intrahepatic biliary ductal dilation. BARRIOS'S SIGN: Negative. RIGHT KIDNEY: Kidney is normal in size. No evidence of renal calculi. No evidence of hydronephrosis. No renal mass or cyst identified. ASCITES: None seen. IMPRESSION: 1. Heterogeneous coarsened appearance of the liver without definite discrete mass. If symptoms are concerning for hepatic mass, an MRI should be considered for further evaluation. 2. Gallbladder polyp versus artifact. DATA REPOSITORY:
== END ==
LOC: DI 02:06
PROVIDERS: PCP Family Medicine; Visit Provider Internal Medicine Gastroenterology
DX: E84.8 Cystic fibrosis with other manifestations (principal); K77 Liver disorders in diseases classified elsewhere
CPT/HCPCS: 76705